=== PATIENT | female | born 1980 | race Caucasian/White ===

== ENCOUNTER 2019-08-24 11:00 | Emergency (ER) | payer OTHER, SELFPAY ==
--- NOTE | 2019-08-24 11:07 | ED.URI ---
HPI - URI/Sore Throat General Chief Complaint: Upper Respiratory Infection Stated Complaint: Sore throat Time Seen by Provider: 08/24/19 11:25 Source: patient and RN notes reviewed Mode of arrival: ambulatory Limitations: no limitations History of Present Illness HPI Narrative: 38-year-old female presents with concern for dry cough, nasal congestion, postnasal drainage, sore throat for 3 days. Denies taking any [id number] medications MD elicited complaint: sore throat Related Data Home Medications Medication Instructions Recorded Confirmed amlodipine 10 mg PO DAILY 08/24/19 08/24/19 bupropion HCl 75 mg PO BID 08/24/19 08/24/19 bupropion HCl [Wellbutrin XL] 150 mg PO QAM 08/24/19 08/24/19 fenofibrate 160 mg PO DAILY 08/24/19 08/24/19 lisinopril-hydrochlorothiazide 1 tablet PO DAILY 08/24/19 08/24/19 Allergies Allergy/AdvReac Type Severity Reaction Status Date / Time latex Allergy Rash Verified 08/24/19 11:26 Penicillins Allergy Hives Verified 08/24/19 11:23 Review of Systems Review of Systems: Narrative: CONSTITUTIONAL: Denies malaise, chills, sweats, or fever. EYES: Denies visual changes, redness, or discharge. ENT: Reports rhinorrhea, congestion, sinus pain, otalgia and sore throat. CARDIOVASCULAR: Denies chest pain, palpitations, or edema. RESPIRATORY: Reports cough. Denies dyspnea. GASTROINTESTINAL: Denies abdominal pain, nausea, vomiting, diarrhea SKIN: Denies rash or itching. MUSCULOSKELETAL: Denies myalgia. NEUROLOGIC: Denies headache. All systems reviewed & are unremarkable except as noted in HPI and below PMFSH Comments At time of signature, agree with nursing past medical, surgical, social and family history. There is no relevant family history pertinent to the presenting complaint Exam Narrative: Exam Narrative: GENERAL: Well-appearing, well-nourished, and in no acute distress. HEAD: Normocephalic, atraumatic. EYES: PERRLA, conjunctivae clear, and EOMI. ENT: Nares clear, turbinates edematous and erythematous, clear discharge. Mucous membranes moist. TM pearly connors with dull light reflex bilaterally; no tragal tenderness. Oropharynx erythematous without lesions. Tonsils not enlarged and without exudate, no drooling, no hoarseness, no trismus. NECK: Supple. No lymphadenopathy CHEST: Clear to auscultation, breath sounds equal. No wheezing, rhonchi, rales, or stridor. No respiratory distress, speaks in full sentences. HEART: Regular rate and rhythm. No murmur heard. Normal peripheral pulses. SKIN: Warm, dry, no rash. NEURO: Alert and oriented x3. PSYCH: Normal mood and affect Course Course Emergency Course: Patient is aware of diagnosis, understands and agrees to treatment plan. Anticipatory guidance given. Patient agrees to follow-up as directed and is aware of reasons to seek care at the emergency department. Portions of this record may have been created with voice recognition software Vital Signs Vital signs: Vital Signs Temperature 98.6 F 08/24/19 11:10 Pulse Rate 88 08/24/19 11:10 Respiratory Rate 18 08/24/19 11:10 Blood Pressure 131/81 08/24/19 11:10 Pulse Oximetry 100 08/24/19 11:10 Temperature 98.6 F 08/24/19 11:10 Pulse Rate 88 08/24/19 11:10 Respiratory Rate 18 08/24/19 11:10 Blood Pressure 131/81 08/24/19 11:10 Pulse Oximetry 100 08/24/19 11:10 Reviewed. Patient has current diagnosis of hypertension MDM - URI/Sore Throat MDM Narrative Medical decision making narrative: Differential diagnosis considered: Strep pharyngitis, allergic rhinitis, upper respiratory tract infection, sinusitis, rhinosinusitis, nasopharyngitis. viral pharyngitis, otitis media, otitis externa, pneumonia, bronchitis, viral cough syndrome, viral syndrome, and influenza. Exam findings show no acute concerns or changes; patient is non-toxic appearing and is in no distress. Patient is appropriate for outpatient treatment and follow-up. Lab Data Attestation: I reviewed the patient'
[2019-08-24 11:10] VITALS: BP 131/81; PULSE 88; RESP 18; TEMP 37; O2SAT 100
== END 2019-08-24 11:45 | disposition home or self-care (01) ==
PROVIDERS: Emergency Provider Nurse Practitioner; PCP Family Medicine
DX: J06.9 Acute upper respiratory infection, unspecified (principal); E78.00 Pure hypercholesterolemia, unspecified; I10 Essential (primary) hypertension; F32.9 Major depressive disorder, single episode, unspecified
CPT/HCPCS: 87081; 87880; 99203; G0463

== ENCOUNTER 2025-01-14 23:27 | Emergency (ER) | payer OTHER, SELFPAY ==
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
[2025-01-14 23:33] VITALS: BP 148/90; PULSE 103; RESP 17; TEMP 37.1; O2SAT 100
[2025-01-14 23:58] LABS: BEDSIDEPREGUCG Negative (Negative)
--- NOTE | 2025-01-15 00:04 | ECG_ITS ---
Test Date: 2025-01-15 00:04:47 Measurements Intervals [place] Rate: 82 P: 51 ID: [id number] QRS: 33 QRSD: 84 T: 48 QT: 353 QTc: 414 Interpretive Statements SINUS RHYTHM No previous ECG available for comparison Electronically Signed On 01-15-2025 12:50:25 CDT by Gabe Dougherty M.D.
[2025-01-15 00:09] LABS: Hematocrit 34.7 % (37.0-47.0); Hemoglobin 11.2 g/dL (12.0-15.0); Immature Granulocyte Percent A 0.3 % (0-0.5); Lymphocytes Absolute Auto 2.73 K/mm3 (0.9-3.2); Mean Corpuscular HGB Conc 32.3 g/dl (32-36); Mean Corpuscular Hemoglobin 30.2 pg (26-34); Mean Corpuscular Volume 93.5 fl (80-100); Nucleated Red Blood Cells Absolute Auto 0.000 K/mm3 (0.0-0.012); Nucleated Red Blood Cells Perc 0.0 % (0.0-0.2); Platelet Count Result 308 k/mm3 (150-375); Red Blood Count 3.71 M/mm3 (4.2-5.4); White Blood Count 6.8 K/mm3 (4.5-10.0)
--- OUTSIDE RECORDS SUMMARY | 2025-01-15 00:13 | XMS_ITS | Encounter Summary ---
Author Organization [facility] Address [address] [place] [address] Phone Care Team Providers Care Quantitative Strategy Analyst Name Role Phone Angela Dos Santos Primary Care Provider Alfie Cervantes MD Primary Care Provider [phone] Angela Dos Santos Unavailable [phone] Helen Calabrese CLINICAL NURSE OCCUPATIONAL MEDICINE Unavailable [phone] Encounter Details Date Type Department Care Team (Late st Contact Info) Description 04/25/2022 Orders Only [facility] Scanning, Provider Social History Tobacco Use Types Packs/Day Years Used Date Smoking Tobacco: Never Assessed Comments Unknown Sex and Gender Information Value Date Recorded Sex Assigned at Not on file Legal Sex Female 9:46 AM DATABASE MANAGER Gender Identity Female 08/08/2023 12:53 AM DATABASE MANAGER Sexual Orientation Straight 08/08/2023 12 :53 AM DATABASE MANAGER documented as of this encounter Plan of Treatment Not on file documented as of this encounter Procedures Procedure Name Priority Date/Time Associated Diagnosis Comments SCAN - RADIOLOGY/IMAGING 04/25/2022 documented in this encounter Results * SCAN - RADIOLOGY/IMAGING (04/25/2022) Anatomical Region Laterality Modality Other us Provider Scanning Edited Result - Final documented in this encounter Visit Diagnoses Not on filedocumented in this encounter Care Teams Quantitative Strategy Analyst Relationship Specialty Start Date End Date Angela Dos Santos PA [address] [place] [address] PCP - General Physician Jigger Operator 05/25/22 06/04/22 Alfie Cervantes MD [address] [address] PCP - General Gastroenterology 06/05/22 Angela Dos Santos PA [address] [place] [address] Physician Jigger Operator 06/05/22 Helen Calabrese, CLINICAL NURSE OCCUPATIONAL MEDICINE [facility] [place] [address] Nurse Practitioner Family Practice 10/09/23 documented as of this encounter
--- OUTSIDE RECORDS SUMMARY | 2025-01-15 00:13 | XMS_ITS | Encounter Summary ---
Author Organization [facility] Address [address] [place] [address] Phone Care Team Providers Care Geological Specialist Name Role Phone Angela Dos Santos Primary Care Provider [phone] Alfie Cervantes MD Primary Care Provider [phone] Angela Dos Santos Unavailable [phone] Helen Calabrese HEALTH INSURANCE ADJUSTER Unavailable [phone] Encounter Details Date Type Department Care Team (Late st Contact Info) Description 03/27/2022 Orders Only [facility] Scanning, Provider Social History Tobacco Use Types Packs/Day Years Used Date Smoking Tobacco: Never Assessed Comments Unknown Sex and Gender Information Value Date Recorded Sex Assigned at Not on file Legal Sex Female 9:46 AM SECRETARY Gender Identity Female 08/08/2023 12:53 AM SECRETARY Sexual Orientation Straight 08/08/2023 12 :53 AM SECRETARY documented as of this encounter Plan of Treatment Not on file documented as of this encounter Procedures Procedure Name Priority Date/Time Associated Diagnosis Comments SCAN - RADIOLOGY/IMAGING 03/27/2022 documented in this encounter Results * SCAN - RADIOLOGY/IMAGING (03/27/2022) Anatomical Region Laterality Modality Other us Provider Scanning Final Result documented in this encounter Visit Diagnoses Not on filedocumented in this encounter Care Teams Geological Specialist Relationship Specialty Start Date End Date Angela Dos Santos PA [address] [place] [address] PCP - General Physician Dual Rate Supervisor 05/25/22 06/04/22 Alfie Cervantes MD [address] [address] PCP - General Gastroenterology 06/05/22 Angela Dos Santos PA [address] [place] [address] Physician Dual Rate Supervisor 06/05/22 Helen Calabrese, HEALTH INSURANCE ADJUSTER [facility] [place] [address] Nurse Practitioner Family Practice 10/09/23 documented as of this encounter
--- OUTSIDE RECORDS SUMMARY | 2025-01-15 00:13 | XMS_ITS | Encounter Summary ---
Author Organization [facility] Address [facility] [place] [address] Care Team Providers Care Statistical Clerk Advertising Name Role Phone Kelsie Jeffries MD Primary Care Provider [phone] Angela Dos Santos PA-C Primary Care Provider [phone] Encounter Details Date Type Department Care Team (Late st Contact Info) Description 09/06/2021 Prep for Procedure [facility] [place] [address] Mara Borges MD [address] [place] [address] Social History Tobacco Use Types Packs/Day Years Used Date Smoking Tobacco: Former Cigarettes Q uit: 08/31/2005 Smokeless Tobacco: Never Alcohol Use Standard Drinks/Week Comments Yes 0 (1 standard drink = 0.6 oz pur e alcohol) 3x's/week -beer AUDIT-C Answer Date Recorded Q1: How often do you have a drink containing alc ohol? 2-4 times a month 07/14/2020 Q2: How many drinks containi ng alcohol do you have on a typical day when you are drinking? 1 or 2 07/14/2020 Frequency of Binge Drinking Not on file 06/16 Comments No Sex and Gender Information Value Date Recorded Sex Assigned at Not on file Legal Sex Female 6:36 PM CDT Gender Identity Not on file Sexual Orientation Not on file COVID-19 Exposure Response Date Recorded In the last 10 days, have yo u been in contact with someone who was confirmed or suspected to have Coronavirus/COVID-19? No / Unsure 09/06/2021 5:17 AM GROUP SALES COORDINATOR documented as of this encounter Functional Status * RETIRED Are you deaf or do you have serious difficulty hearing Answer Date of Assessment Author Status No 07/21/2021 5:40 PM GROUP SALES COORDINATOR Activ e * RETIRED Are you blind or do you have serious difficulty seeing, even when wearing glasses? Answer Date of Assessment Author Status No 07/21/2021 5:40 PM GROUP SALES COORDINATOR Activ e * Do you have serious difficulty walking or climbing stairs? Answer Date of Assessment Author Status No 07/21/2021 5:40 PM GROUP SALES COORDINATOR Chloe Guerra S, R N Active * Do you have difficulty dressing or bathing? Answer Date of Assessment Author Status No 07/21/2021 5:40 PM GROUP SALES COORDINATOR Chloe Guerra S, R N Active * Because of a physical, mental, or emotional condition, do you have difficulty doing errands alone such as visiting a doctor's office or shopping? Answer Date of Assessment Author Status No 07/21/2021 5:40 PM GROUP SALES COORDINATOR Chloe Guerra S, R N Active * Calculated C-SSRS Risk Score (Lifetime/Recent) Answer Date of Assessment Author Status No Risk Indicated 09/06/2021 6:00 AM GROUP SALES COORDINATOR Francesca Baumann RN Active * [place] Suicide Severity Rating Scale (Screener/Recent Self-Report) Question Answer Date of Assessment Author Status 1. Wish to be (Past 1 Month) No 09/06/2021 6:00 AM Francesca Adams RN Active 2. Non-Specific Active Suicidal Thoughts (Past 1 Month) No 09/06/2021 6:00 AM Francesca Adams RN Active 6. Suicidal Behavior (Lifetime) No 09/06/2021 6:00 AM Francesca Adams RN Active documented as of this encounter Mental Status * Because of a physical, mental, or emotional condition, do you have serious difficulty concentrating, remembering, or making decisions? Answer Entry Date Author Status No 07/21/2021 5:40 PM GROUP SALES COORDINATOR Chloe Guerra R N Active documented in this encounter Plan of Treatment Not on file documented as of this encounter Goals Goal Patient Goal Type Associated Problems Recent Progress Patient-Stated? Author Health - patient able to perform ADLs independently General No Evangelina Jenkins RN documented as of this encounter Results * (ABNORMAL) CBC W/DIFF AUTOMATED (09/04/2021 9:25 AM GROUP SALES COORDINATOR) [facility] WBC 9.2 4.5 - 11.0 x10'3/uL 09/04/2021 10:57 AM [facility] RBC 3.64(L) 4.20 - 5.40 x10'6/uL 09/04/2021 10:57 AM [facility] HGB 10.9(L) 12.0 - 16.0 G/DL 09/04/2021 10:57 AM [facility] HCT 34.1(L) 38.0 - 48.0 % 09/04/2021 10:57 AM [facility] MCV 93.7 81.0 - 99.0 FL 09/04/2021 10:57 AM [facility] MCH 29.9 27.0 - 31.0 PG 09/04/2021 10:57 AM [facility] MCHC 32.0 32.0 - 36.0 G/DL 09/04/2021 10:57 AM [facility] RDW 14.8(H) 11.5 - 14.5 % 09/04/2021 10:57 AM [facility] PLT 467(H) 130 - 400 x10'3/uL 09/04/2021 10:57 AM [facility] MPV 10.1 9.3 - 12.2 FL 09/04/2021 10:57 AM [facility] DIFFERENTIAL TYPE AUTOMATED DIFFERENTIAL 09/04/2021 10:57 AM GROUP SALES COORDINATOR [facility] NEUTROPHILS % 62.4 % 09/04/2021 10:57 AM [facility] LYMPHOCYTES % 27.9 % 09/04/2021 10:57 AM [facility] MONOCYTES % 7.8 % 09/04/2021 10:57 AM [facility] EOSINOPHILS 0.8 % 09/04/2021 10:57 AM [facility] BASOPHILS 0.8 % 09/04/2021 10:57 AM [facility] IMMATURE GRANS % 0.3 % 09/04/19 10:57 AM [facility] ABS. NEUTROPHILS TOTAL 5.72 1.80 - 7.70 x10'3/uL 09/04/2021 10:57 AM [facility] ABS. LYMPHOCYTES 2.56 1.00 - 4.80 x10'3/uL 09/04/2021 10:57 AM [facility] ABS. MONOCYTES 0.71 0.24 - 0.86 x10'3/uL 09/04/2021 10:57 AM [facility] ABS. EOSINOPHILS 0.07 0.04 - 0.36 x10'3/uL 09/04/2021 10:57 AM [facility] ABS. BASOPHILS 0.07 0.01 - 0.08 x10'3/uL 09/04/2021 10:57 AM [facility] ABS. IMMATURE GRANULOCYTES 0.03 0.00 - 0.49 x10'3/uL 09/04/2021 10:57 AM [facility] 09/04/2021 9:25 AM GROUP SALES COORDINATOR us Mara Borges MD LABORATORY Final Result [facility] [address] [place] [address], * TYPE & SCREEN (09/04/2021 9:25 AM GROUP SALES COORDINATOR) ABO/RH A POSITIVE 09/04/2021 11:01 AM GROUP SALES COORDINATOR [facility] ANTIBODY SCREEN NEGATIVE 09/04/2021 11:01 AM GROUP SALES COORDINATOR [facility] SAMPLE EXPIRATION 09/09/2021,2 359 09/06/2021 6:38 AM GROUP SALES COORDINATOR [facility] COMMENT NO HISTORY OF TRANSFUSIONS , OR ANTIBODIES, NEW SPECIMEN NOT NEEDED 09/06/2021 6:38 AM GROUP SALES COORDINATOR [facility] 09/04/2021 9:25 AM GROUP SALES COORDINATOR Result [facility] Mara Borges MD BLOOD BANK TEST ORDERABLES Final Result Performing Organization Address [facility] Co de Phone Number [facility] [address] [place] [address], * CORONAVIRUS (COVID-19) ANTIGEN (In-house Ivy) (09/04/2021 9:00 AM GROUP SALES COORDINATOR) Pathologist [facility] CORONAVIRUS ANTIGEN IA NEGATIVE NEGATIVE 09/04/2021 10:17 AM GROUP SALES COORDINATOR [facility] Comment: NEGATIVE RESULTS SHOULD BE TREATED PRESUMPTIVE AND CONFIRMED WITH A MOLECULAR ASSAY IF NECESSARY FOR PATIENT MANAGEMENT. NEGATIVE RESULTS DO NOT RULE OUT COVID 19 AND SHOULD NOT BE USED THE SOLE BASIS FOR TREATMENT OR PATIENT MANAGEMENT DECISIONS, INCLUDING INFECTION CONTROL DECISIONS. NEGATIVE RESULTS SHOULD BE CONSIDERED IN THE CONTEXT OF A PATIENT'S RECENT EXPOSURES, HISTORY AND THE PRESENCE OF CLINICAL SIGNS AND SYMPTOMS CONSISTENT WITH COVID 19. THIS TEST HAS BEEN AUTHORIZED BY THE FDA UNDER AN EMERGENCY USE AUTHORIZATION (EUA) FOR USE BY AUTHORIZED LABORATORIES. SPECIMEN TYPE NASAL 09/04/2021 9:49 AM GROUP SALES COORDINATOR [facility] FIRST TEST NO 09/04/2021 9:49 AM GROUP SALES COORDINATOR [facility] EMPLOYED IN HEALTHCARE NO 09/04/2021 9:49 AM GROUP SALES COORDINATOR [facility] SYMPTOMATIC DEFINED BY CDC NO 09/04/2021 9:49 AM GROUP SALES COORDINATOR [facility] HOSPITALIZATION STATUS NO 09/04/2021 9:49 AM GROUP SALES COORDINATOR [facility] PATIENT IN ICU NO 09/04/2021 9:49 AM GROUP SALES COORDINATOR [facility] RESIDENT OF [facility] NO 09/04/2021 9:49 AM GROUP SALES COORDINATOR [facility] NOT 09/04/2021 9:49 AM GROUP SALES COORDINATOR [facility] Specimen from nose (specimen) NASAL STRUCTURE / Unknown 09/04/2021 9:00 AM GROUP SALES COORDINATOR us Mara Borges MD MICROBIOLOGY - GENERAL ORDERABLE S Final Result [facility] [address] [place] [address], documented in this encounter Visit Diagnoses Diagnosis Preoperative testing- Primary Preoperative examination, unspecified documented in this encounter Additional Health Concerns Infection Onset Date Last Indicated Resolved Time COVID-19 Rule Out 11/10/2021 11/10/2021 11/10/2021 7:05 PM CDT MRSA Comment:02/20/22 nares (SB) 02/20/2022 02/20/2022 documented as of this encounter Care Teams Statistical Clerk Advertising Relationship Specialty Start Date End Date Kelsie Jeffries MD [facility] [place] [address] PCP - General FAMILY PRACTICE 07/14/20 02/06/22 Angela Dos Santos, PA-C . [facility] [address] [place] [id number] PCP - General PHYSICIAN CARBURIZER 02/07/22 documented as of this encounter
--- OUTSIDE RECORDS SUMMARY | 2025-01-15 00:13 | XMS_ITS | Encounter Summary ---
Author Organization [facility] Address [facility] [place] [address] Care Team Providers Care Barrel Racer Name Role Phone Kelsie Jeffries MD Primary Care Provider Angela Dos Santos PA-C Primary Care Provider [phone] Encounter Details Date Type Department Care Team (Late st Contact Info) Description 08/10/2021 Hospital Follow-up Call [facility] Med/Surg [address] [place] [address] Meghan Forte, RN Social History Tobacco Use Types Packs/Day Years Used Date Smoking Tobacco: Every Day Electronic Cigarettes Smokeless Tobacco: Never Comments:1 pack a week Alcohol Use Standard Drinks/Week Comments Yes 0 [...] Exposure Response Date Recorded In the last month, have you been in contact with someone who was confirmed or suspected to have Coronavirus / COVID-19? Yes 07/20/2021 10:28 AM LONG FILLER CIGAR ROLLER MACHINE documented as of this encounter Functional Status * RETIRED Are you deaf or do you have serious difficulty hearing Answer Date of Assessment Author Status No 07/21/2021 5:40 PM LONG FILLER CIGAR ROLLER MACHINE Activ e * RETIRED Are you blind or do you have serious difficulty seeing, even when wearing glasses? Answer Date of Assessment Author Status No 07/21/2021 5:40 PM LONG FILLER CIGAR ROLLER MACHINE Activ e * Do you have serious difficulty walking or climbing stairs? Answer Date of Assessment Author Status No 07/21/2021 5:40 PM LONG FILLER CIGAR ROLLER MACHINE Rakers Chloe S, R N Active * Do you have difficulty dressing or bathing? Answer Date of Assessment Author Status No 07/21/2021 5:40 PM LONG FILLER CIGAR ROLLER MACHINE Rakers, Chloe S, R N Active * Because of a physical, mental, or emotional condition, do you have difficulty doing errands alone such as visiting a doctor's office or shopping? Answer Date of Assessment Author Status No 07/21/2021 5:40 PM LONG FILLER CIGAR ROLLER MACHINE Rakers, Chloe S, R N Active documented as of this encounter Mental Status * Because of a physical, mental, or emotional condition, do you have serious difficulty concentrating, remembering, or making decisions? Answer Entry Date Author Status No 07/21/2021 5:40 PM LONG FILLER CIGAR ROLLER MACHINE Rafanys Chloe S, R N Active documented in this encounter Progress Notes * Meghan Forte RN - 08/10/2021 5:14 PM CST Had no c/o any and states she would absolutely recommend the hospital. FILLER CIGAR ROLLER MACHINE documented in this encounter Plan of Treatment Not on file documented as of this encounter Goals Goal Patient Goal Type Associated Problems Recent Progress Patient-Stated? Author Health - patient able to perform ADLs independently General No Evangelina Jenkins RN documented as of this encounter Visit Diagnoses Not on filedocumented in this encounter Additional Health Concerns Infection Onset Date Last Indicated Resolved Time COVID-19 Rule Out 09/04/2021 09/04/2021 09/04/2021 10:17 AM LONG FILLER CIGAR ROLLER MACHINE COVID-19 Rule Out 11/10/2021 11/10/2021 11/10/2021 7:05 PM CDT MRSA Comment:02/20/22 citlaly (SB) 02/20/2022 02/20/2022 documented as of this encounter Care Teams Barrel Racer Relationship Specialty Start Date End Date Kelsie Jeffries MD [facility] [address] [place] [address] PCP - General FAMILY PRACTICE 07/14/20 02/06/22 Angela Dos Santos PA-C . [facility] [address] [place] [address] PCP - General PHYSICIAN CORN CROP SUPERVISOR 02/07/22 documented as of this encounter
--- OUTSIDE RECORDS SUMMARY | 2025-01-15 00:13 | XMS_ITS | Encounter Summary ---
Author Organization [facility] Address [facility] [place] [address] Care Team Providers Care Check Writer Salesperson Name Role Phone Kelsie Jeffries MD Primary Care Provider [phone] Angela Dos Santos PA-C Primary Care Provider [phone] Encounter Details Date Type Department Care Team (Late st Contact Info) Description 11/10/2021 Prep for Procedure [facility] [place], [place] [id number] Alfie Cervantes MD [address] [address] Social History Tobacco Use Types Packs/Day Years Used Date Smoking Tobacco: Former Cigarettes Q uit: 08/31/2005 Smokeless Tobacco: Never Alcohol Use Standard Drinks/Week Comments Yes 10 (1 standard drink = 0.6 oz pu re alcohol) 3x's/week -beer AUDIT-C Answer Date Recorded [...] suspected to have Coronavirus/COVID-19? No / Unsure 11/13/2021 9:38 AM CDT documented as of this encounter Functional Status * RETIRED Are you deaf or do you have serious difficulty hearing Answer Date of Assessment Author Status No 07/21/2021 5:40 PM FIELD LABORATORY OPERATOR Activ e * RETIRED Are you blind or do you have serious difficulty seeing, even when wearing glasses? Answer Date of Assessment Author Status No 07/21/2021 5:40 PM FIELD LABORATORY OPERATOR Activ e * Do you have serious difficulty walking or climbing stairs? Answer Date of Assessment Author Status No 07/21/2021 5:40 PM FIELD LABORATORY OPERATOR Chloe Guerra S, R N Active * Do you have difficulty dressing or bathing? Answer Date of Assessment Author Status No 07/21/2021 5:40 PM FIELD LABORATORY OPERATOR Chloe Guerra S, R N Active * Because of a physical, mental, or emotional condition, do you have difficulty doing errands alone such as visiting a doctor's office or shopping? Answer Date of Assessment Author Status No 07/21/2021 5:40 PM FIELD LABORATORY OPERATOR Chloe Guerra S, R N Active * Calculated C-SSRS Risk Score (Lifetime/Recent) Answer Date of Assessment Author Status No Risk Indicated 11/13/2021 12:21 PM CDT Anna Juarez RN Active * [place] Suicide Severity Rating Scale (Screener/Recent Self-Report) Question Answer Date of Assessment Author Status 1. Wish to be (Past 1 Month) No 11/13/2021 12:21 PM CDT Anna Juarez RN Active 2. Non-Specific Active Suicidal Thoughts (Past 1 Month) No 11/13/2021 12:21 PM CDT Anna Juarez RN Active 6. Suicidal Behavior (Lifetime) No 11/13/2021 12:21 PM SHIRAT Anna Juarez RN Active documented as of this encounter Mental Status * Because of a physical, mental, or emotional condition, do you have serious difficulty concentrating, remembering, or making decisions? Answer Entry Date Author Status No 07/21/2021 5:40 PM FIELD LABORATORY OPERATOR Chloe Guerra R N Active documented in this encounter Plan of Treatment Not on file documented as of this encounter Goals Goal Patient Goal Type Associated Problems Recent Progress Patient-Stated? Author Health - patient able to perform ADLs independently General No Evangelina Jenkins RN documented as of this encounter Results * CORONAVIRUS (COVID 19) (11/10/2021 9:15 AM CDT) SPEC DESCRIPTION NASAL 11/11/19 10:13 AM CDT [facility] CORONAVIRUS SARS COV 2 PCR (RESP) NEGATIVE NEGATIVE 11/10/2021 7:05 PM CDT [facility] Comment: THE SARS-CoV-2 TEST HAS BEEN AUTHORIZED BY THE FDA UNDER AN EUA FOR USE BY AUTHORIZED LABORATORIES. PERFORMED BY NUCLEIC ACID AMPLIFICATION PCR FIRST TEST NO 11/10/2021 10:13 AM CDT [facility] EMPLOYED IN HEALTHCARE NO 11/10/2021 10:13 AM CDT [facility] SYMPTOMATIC DEFINED BY CDC UNKNOWN 11/10/2021 10:13 AM CDT [facility] HOSPITALIZATION STATUS NO 11/10/2021 10:13 AM CDT [facility] PATIENT IN ICU NO 11/10/2021 10:13 AM CDT [facility] RESIDENT OF [facility] CARE NO 11/10/2021 10:13 AM CDT [facility] NOT 11/10/2021 10:13 AM CDT [facility] NASAL STRUCTURE / Unknown 11/10/2021 9:15 AM CDT us Alfie Cervantes MD MICROBIOLOGY - GENERAL ORDERABLE S Final Result [facility] [address] [facility] [place] [address], [place] [phone] [facility] [address] [place] [address], [place] [phone] documented in this encounter Visit Diagnoses Diagnosis Abdominal pain- Primary Abdominal pain, unspecified site documented in this encounter Additional Health Concerns Infection Onset Date Last Indicated Resolved Time COVID-19 Rule Out 11/10/2021 11/10/2021 11/10/2021 7:05 PM CDT MRSA Comment:02/20/22 citlaly (SB) 02/20/2022 02/20/2022 documented as of this encounter Care Teams Check Writer Salesperson Relationship Specialty Start Date End Date Kelsie Jeffries MD . [facility] [address] [place] [id number] PCP - General FAMILY PRACTICE 07/14/20 02/06/22 Angela Dos Santos, PASarahC . [facility] [address] [place] [address] PCP - General PHYSICIAN MIXING TUMBLER OPERATOR 02/07/22 documented as of this encounter
--- OUTSIDE RECORDS SUMMARY | 2025-01-15 00:13 | XMS_ITS | Encounter Summary ---
Author Organization [facility] Address [address] [place] [address] Phone Care Team Providers Care Tank Worker Name Role Phone Alfie Cervantes MD Primary Care Provider [phone] Angela Dos Santos PA Unavailable [phone] Helen Calabrese BREASTER Unavailable [phone] Encounter Details Date Type Department Care Team (Late st Contact Info) Description 08/29/2022 Orders Only [facility] Scanning, Provider Social History Tobacco Use Types Packs/Day Years Used Date Smoking Tobacco: Never Assessed Comments Unknown Sex and Gender Information Value Date Recorded Sex Assigned at Not on file Legal Sex Female 9:46 AM RADIAL DRILL OPERATOR Gender Identity Female 08/08/2023 12:53 AM RADIAL DRILL OPERATOR Sexual Orientation Straight 08/08/2023 12 :53 AM RADIAL DRILL OPERATOR documented as of this encounter Plan of Treatment Not on file documented as of this encounter Procedures Procedure Name Priority Date/Time Associated Diagnosis Comments SCAN - RADIOLOGY/IMAGING 08/29/2022 documented in this encounter Results * SCAN - RADIOLOGY/IMAGING (08/29/2022) Anatomical Region Laterality Modality Other us Provider Scanning Final Result documented in this encounter Visit Diagnoses Not on filedocumented in this encounter Care Teams Tank Worker Relationship Specialty Start Date End Date Alfie Cervantes MD [address] [address] PCP - General Gastroenterology 06/05/22 Angela Dos Santos PA [address] [place] [address] Physician Chief School Finance Officer 06/05/22 Helen Calabrese NP [address] [facility] [id number] Nurse Practitioner Family Practice 10/09/23 documented as of this encounter
--- OUTSIDE RECORDS SUMMARY | 2025-01-15 00:13 | XMS_ITS | Clinical Summary ---
Author Organization [facility] Address [facility] [place] [address] Care Team Providers Care Picker Name Role Phone Angela Dos Santos PA-C Primary Care Provider [phone] Allergies Active Allergy Reactions Criticality Noted Date Comments Gadolinium Derivatives Throat swelling 04/11/20 22 Throat started swelling during MRI Latex Hives 07/14/2020 Penicillin V Hives 07/14/2020 Tolerates carbapenems 02/2022 Sertraline Seizure 08/31/2021 Was taking 48 hrs, had uncontrollable seizures Medications hydrOXYzine 50 MG capsule Take 1 capsule (50 mg total) by mouth every 4 (four) hours as needed (ptsd). Active fenofibrate 160 MG tablet Take 1 tablet (160 mg total) by mouth 2 (two) times a day. Active vitamin D2, ergocalciferol, (DRISDOL) 23992 UNITS capsule Take 1 capsule (50,000 Units total) by mouth every 7 days. Fridays Active CREON 03111-25118 units capsuleIndications :Chronic pancreatitis, unspecified pancreatitis type (CMS/HCC HHS/HCC) TAKE 1 CAPSULE BY MOUTH 3 TIMES DAILY WITH MEALS 500 capsule 3 10/25/19 23 Active Additional Information Patient taking differently: 1 capsule Oral 3 times daily before meals, Reported on 07/23/2023 albuterol sulfate HFA 108 (90 Base) MCG/ACT inhaler Inhale 2 puffs into the lungs every 6 (six) hours as needed for Wheezing or Shortness of breath. Active celecoxib (CELEBREX) 100 MG capsule Take 1 capsule (100 mg total) by mouth 2 (two) times daily. Active pantoprazole EC (PROTONIX) 40 MG tablet Take 1 tablet (40 mg total) by mouth daily. Active rivaroxaban (XARELTO) 20 MG Tab tablet Take 1 tablet (20 mg total) by mouth daily. Take with food Active Senna (SENOKOT) 8.6 MG tablet Take 4 tablets (34.4 mg total) by mouth 2 (two) times daily as needed for Constipation. Active dicyclomine (BENTYL) 20 MG tablet Take 1 tablet (20 mg total) by mouth every 6 (six) hours. 120 tablet 07/22/19 24 Active ondansetron (ZOFRAN-ODT) 4 MG disintegrating tablet Take 1 tablet (4 mg total) by mouth every 8 (eight) hours as needed for Nausea. 20 tablet 07/22/19 24 Active buPROPion XL (WELLBUTRIN XL) 300 MG 24 hr tablet Take 1 tablet (300 mg total) by mouth daily. 06/19/20 23 Active fluticasone propionate (FLONASE) 50 MCG/ACT nasal spray 2 sprays by Nasal route 2 (two) times daily. Active polyethylene glycol (GLYCOLAX) packet Take 240 mLs (17 g total) by mouth daily as needed for Constipation. Dissolve powder in 240 mL water Active oxyCODONE-acetamin ophen (PERCOCET) 5-325 MG tabletIndications: Acute Pain < 3 Day Supply Take 1 tablet by mouth every 8 (eight) hours as needed for Pain. Indications: Acute Pain < 3 Day Supply 5 tablet 07/27/19 24 Active Active Problems Problem Noted Date Diagnosed Date Acute on chronic pancreatitis ([facility]/HCC HHS/HCC) 07/23/2023 Pancreatitis, necrotizing ([facility]) 02/11/2022 Acute pancreatitis ([facility]) 02/10/2022 Diarrhea, unspecified type 10/23/2021 Overview (10/23/2021): Added automatically from request for surgery [id number] Family history of pancreatitis 10/23/2021 Overview (10/23/2021): Added automatically from request for surgery [id number] Menometrorrhagia 09/06/2021 S/P hysterectomy 09/06/2021 Hypertriglyceridemia 07/20/2021 Pancreatitis ([facility]) 07/14/2020 PTSD (post-traumatic stress disorder) 09/12/2009 PMDD (premenstrual dysphoric disorder) 4 Immunizations Immunization Administration Dates Next Due Fluzone 6 Months+ Quad (0.5 mL Prefilled Syringe ) 09/07/2022,07/21/2021 Family History * Patient is adopted Medical History Relation Comments pancreatitis Brother mitral valve prolapse Maternal Aunt pancreatitis Maternal Grandmother Diabetes Mother mitral valve prolapse Mother pancreatitis Sister Relation Status Comments Brother Alive Maternal Aunt Maternal Grandmother Mother Alive Sister Alive Social History Tobacco Use Types Packs/Day Years Used Date Smoking Tobacco: Former Cigarettes Q uit: 08/31/2005 Smokeless Tobacco: Never Tobacco Cessation:Counseling Given: No Alcohol Use Standard Drinks/Week Comments Never 10 (1 standard drink = 0.6 oz pu re alcohol) 3x's/week -beer [employer] Answer Date Recorded In the past 12 months has [employer], gas, oil, or water [employer] threatened to shut off services in your home? No 07/23/2023 Humiliation, Afraid, Rape, and Kick questionnair e Answer Date Recorded Within the last year, have y ou been afraid of your partner or ex-partner? No 07/23/2023 Within the last year, have y ou been humiliated or emotionally abused in other ways by your partner or ex-partner? No Within the last year, have y ou been kicked, hit, slapped, or otherwise physically hurt by your partner or ex-partner? No 07/23/2023 Within the last year, have y ou been raped or forced to have any kind of sexual activity by your partner or ex-partner? No 07/23/2023 AUDIT-C Answer Date Recorded Q1: How often do you have a drink containing alc ohol? 2-4 times a month 07/14/2020 Q2: How many drinks containi ng alcohol do you have on a typical day when you are drinking? 1 or 2 07/14/2020 Frequency of Binge Drinking Not on file 06/16 Overall Financial Resource Strain (CARDIA) Answe r Date Recorded How hard is it for you to pa y for the very basics like food, housing, medical care, and heating? Somewhat hard 07/23/2023 PHQ-2 Answer Date Recorded PHQ-2 Score - If the patient scores above 3, please move on to questions 3-9 6 11/27/2021 Hunger Vital Sign Answer Date Recorded Within the past 12 months, y ou worried that your food would run out before you got the money to buy more. Sometimes true Within the past 12 months, t he food you bought just didn't last and you didn't have money to get more. Sometimes true 03/2024 PRAPARE - Transportation Answer Date Re corded In the past 12 months, has l ack of transportation kept you from medical appointments or from getting medications? Yes 03/2024 In the past 12 months, has l ack of transportation kept you from meetings, work, or from getting things needed for daily living? Yes 07/23/2023 Housing Stability Vital Sign Answer German e Recorded In the last 12 months, was t here a time when you were not able to pay the mortgage or rent on time? Yes 07/23/2023 In the last 12 months, how many places have you lived? 1 07/23/2023 In the last 12 months, was t here a time when you did not have a steady place to sleep or slept in a skilled nursing (including now)? No 07/23/2023 Housing Stability Vital Sign Answer German e Recorded In the last 12 months, was t here a time when you were not able to pay the mortgage or rent on time? Yes 07/23/2023 Number of Times Moved in the Last Year Not on fi le 07/23/2023 Homeless in the Last Year Not on file 2023 Comments No Sex and Gender Information Value Date Recorded Sex Assigned at Not on file Legal Sex Female 6:36 PM CDT Gender Identity Not on file Sexual Orientation Not on file Last Filed Vital Signs Vital Sign Reading Time Taken Comments Blood Pressure 118/81 07/27/2023 12:12 PM DIAGNOSTIC ASSISTANT Pulse 70 07/27/2023 12:12 PM DIAGNOSTIC ASSISTANT Temperature 36.1 C (97 F) 07/27/2023 12:12 PM DIAGNOSTIC ASSISTANT Respiratory Rate 16 07/27/2023 12:12 PM DIAGNOSTIC ASSISTANT Oxygen Saturation 100% 07/27/2023 12:12 PM DIAGNOSTIC ASSISTANT Inhaled Oxygen Concentration - - Weight 66 kg (145 lb 8.1 oz) 07/27/2023 3:30 AM DIAGNOSTIC ASSISTANT Height 167.6 cm (5' 5.98) 07/23/2023 6:44 PM CS T Body Mass Index 23.5 07/23/2023 6:44 PM DIAGNOSTIC ASSISTANT Plan of Treatment Health Maintenance Due Date Last Done Comments Annual Physical 11/18/1982 Hepatitis C 11/18/1997 DTaP, Tdap and Td Vaccines ( 1 - Tdap) 11/18/1998 Hepatitis B Vaccines (1 of 3 - 19+ 3-dose series) 11/18/1998 Mammogram Screening 2019 COVID-19 Vaccine ( - 2023-2 5 season) 2024 PHQ-2 (Physician [place]) 07/15/2024 Colorectal Cancer Screening Colonoscopy (10 Years) 11/14/2031 11/13/2021 HPV Vaccines Aged Out No longer eligi ble based on patient's age to complete this topic Meningococcal B Vaccine Aged Out No l onger eligible based on patient's age to complete this topic Meningococcal Vaccine Aged Out No dayami celina eligible based on patient's age to complete this topic Pneumococcal Vaccine: Pediat rics (0 to 5 Years) and At-Risk Patients (6 to 49 Years) Aged Out No longer eligi ble based on patient's age to complete this topic RSV Immunizations Under 20 Months Aged Out No longer eligible based on patient's age to complete this topic Goals Goal Patient Goal Type Associated Problems Recent Progress Patient-Stated? Author Health - patient able to perform ADLs independently General No Evangelina Jenkins, RN Patient will return to prior living situation and remain independent in ADLs upon discharge from hospital General No Shonna Bauer, RN Note: Is going home after d/c and Mother or fiance will help if needed. Safety Patient/family will have appropriate support at home upon discharge Lifestyle No Meeta Pickens, senior education specialist - family caregiver with be involved in care transitions and discharge planning Lifestyle No Karma García, SIDE STITCHING MACHINE OPERATOR Additional Health Concerns Infection Onset Date Last Indicated MRSA Comment:02/20/22 citlaly (SB) 02/20/2022 02/20/2022 Insurance [facility] Advance Directives Documents on File Type Date Recorded Patient Industrial Waste Treatment Technician Expl anation Advance Directives and Livin g Will 02/12/2022 1:12 PM [facility] * Full Code (Latest Code Status on File) Date Activated Date Inactivated Comments 07/23/2023 3:23 PM 07/27/2023 6:29 PM * Full Code Date Activated Date Inactivated Comments 07/22/2023 10:39 PM 07/23/2023 3:21 PM * Full Code Date Activated Date Inactivated Comments 05/14/2023 3:55 PM 05/22/2023 1:22 PM * Full Code Date Activated Date Inactivated Comments 08/30/2022 2:06 AM 09/07/2022 4:18 PM * Full Code Date Activated Date Inactivated Comments 04/25/2022 9:21 PM 05/09/2022 2:58 PM Care Teams Picker Relationship Specialty Start Date End Date Angela Dos Santos PA-C PCP - General PHYSICIAN DOCUMENT REVIEWER 02/07/22
--- OUTSIDE RECORDS SUMMARY | 2025-01-15 00:13 | XMS_ITS | Data Portability ---
Author Organization [employer] , [facility] Address [address] [place] [address] Assessment No assessment recorded. Plan of Treatment Reminders Order Date Submit Date Provider Last Modified By Organization Details Last Modified Time Details Appointments None recorded. Lab CBC w/ auto diff 2021 JOSE [facility], [address] [place], [address], 05:51:37 Referral physical therapist referral - Right sided c/s scar pain (from 2006) 2021 [facility] - [place], [facility] [address] [facility], [place], [address], 13:34:54 Procedures None recorded. Surgeries None recorded. Imaging None recorded. Medication Orders clotrimazo le 1 % topical cream 2021 JOSE Not available 14:26:14 bupropion HCl 100 mg tablet 2021 JOSE Not available 14:26:16 Patient TargetsNo targets recorded. Patient InstructionsNo instructions recorded. Reason for Referral Physical Therapist Referral for Pain of scar Right sided c/s scar pain (from 2006) Referring Physician: Mara Borges, [employer], Encounter Date: 10/17/2021 Results Created Date Observation Date Name Description Value Unit Range Abnormal Flag Note LastModifiedBy Organization Detail LastModifiedTime 08/22/19 22 08/23/2021 CBC (INCL UDES DIFF/ PLT) white blood cell count 11.9 thous and/u L 3.8-10 .8 high Not Available [address], [address], 08/23/2021 05:51:37 08/22/19 22 08/23/2021 CBC (INCL UDES DIFF/ PLT) red blood cell count 3.81 evelin on/uL 3.80-5 .10 normal Not Available [address], [address], 08/23/2021 05:51:37 08/22/19 22 08/23/2021 CBC (INCL UDES DIFF/ PLT) hemoglobin 11.2 g/dL 11.7-1 5.5 low Not Available [facility] [address], [address], 08/23/2021 05:51:37 08/22/19 22 08/23/2021 CBC (INCL UDES DIFF/ PLT) hematocrit 34.4 % 35.0-4 5.0 low Not Available [facility] [address], [address], 08/23/2021 05:51:37 08/22/19 22 08/23/2021 CBC (INCL UDES DIFF/ PLT) MCV 90.3 fL 80.0-1 00.0 normal Not Available [facility] [address], [address], 08/23/2021 05:51:37 08/22/19 22 08/23/2021 CBC (INCL UDES DIFF/ PLT) MCH 29.4 pg 27.0-3 3.0 normal Not Available [facility] [address], [address], 08/23/2021 05:51:37 08/22/19 22 08/23/2021 CBC (INCL UDES DIFF/ PLT) MCHC 32.6 g/dL 32.0-3 6.0 normal Not Available [address], [address], 08/23/2021 05:51:37 08/22/19 22 08/23/2021 CBC (INCL UDES DIFF/ PLT) RDW 12.6 % 11.0-1 5.0 normal Not Available [address], [address], 08/23/2021 05:51:37 08/22/19 22 08/23/2021 CBC (INCL UDES DIFF/ PLT) platelet count 605 thous and/u L 140-40 0 high Not Available [address], [address], 08/23/2021 05:51:37 08/22/19 22 08/23/2021 CBC (INCL UDES DIFF/ PLT) MPV 11.1 fL 7.5-12 .5 normal Not Available [address], [address], 08/23/2021 05:51:37 08/22/19 22 08/23/2021 CBC (INCL UDES DIFF/ PLT) absolute neutrophils 7188 cells /uL 1500-7 800 normal Not Available [address], [address], 08/23/2021 05:51:37 08/22/19 22 08/23/2021 CBC (INCL UDES DIFF/ PLT) absolute lymphocytes 3618 cells /uL 850-39 00 normal Not Available [address], [address], 08/23/2021 05:51:37 08/22/19 22 08/23/2021 CBC (INCL UDES DIFF/ PLT) absolute monocytes 785 cells /uL 200-95 0 normal Not Available [address], [address], 08/23/2021 05:51:37 08/22/19 22 08/23/2021 CBC (INCL UDES DIFF/ PLT) absolute eosinophils 214 cells /uL 15-500 normal Not Available [address], [address], 08/23/2021 05:51:37 08/22/19 22 08/23/2021 CBC (INCL UDES DIFF/ PLT) absolute basophils 95 cells /uL 0-200 normal Not Available [facility] [address], [address], 08/23/2021 05:51:37 08/22/19 22 08/23/2021 CBC (INCL UDES DIFF/ PLT) neutrophils 60.4 % normal Not Available [facility] [address], [address], 08/23/2021 05:51:37 08/22/19 22 08/23/2021 CBC (INCL UDES DIFF/ PLT) lymphocytes 30.4 % normal Not Available [facility] [address], [address], 08/23/2021 05:51:37 08/22/19 22 08/23/2021 CBC (INCL UDES DIFF/ PLT) monocytes 6.6 % normal Not Available [facility] [address], [address], 08/23/2021 05:51:37 08/22/19 22 08/23/2021 CBC (INCL UDES DIFF/ PLT) eosinophils 1.8 % normal Not Available [facility] [address], [address], 08/23/2021 05:51:37 08/22/19 22 08/23/2021 CBC (INCL UDES DIFF/ PLT) basophils 0.8 % normal Not Available [facility] [address], [address], 08/23/2021 05:51:37 09/04/19 22 09/04/2021 CORON AVIRU S (COVI D 19) ANTIG EN coronavirus antigen ia NEGATI VE neg normal NEGAT MOOKIE RESUL TS SHOUL D BE TREAT ED PRESU MPTIV E AND CONFI RMED WITH A MOLEC ULAR ASSAY IF NECES GONZÁLEZ FOR PATIE NT MANAG EMENT . NEGAT MOOKIE RESUL TS DO NOT RULE OUT COVID 19 AND SHOUL D NOT BE USED THE SOLE BASIS FOR TREAT MENT OR PATIE NT MANAG EMENT DECIS IONS, INCLU DING INFEC TION CONTR OL DECIS IONS. NEGAT MOOKIE RESUL TS SHOUL D BE CONSI DERED IN THE REYNALDO XT OF A PATIE NT'S RECEN T EXPOS URES, HISTO RY AND THE PRESE NCE OF CLINI CAMELIA SIGNS AND SYMPT OMS CONSI STENT WITH COVID 19. THIS TEST HAS BEEN AUTHO RIZED BY THE FDA UNDER AN EMERG ENCY USE AUTHO RIZAT ION (EUA) FOR USE BY AUTHO RIZED LABOR ATORI ES. Not Available [facility] (Lab) [place], [address], 09/04/2021 11:17:22 09/04/19 22 09/04/2021 CORON AVIRU S (COVI D 19) ANTIG EN specimen type NASAL Not Available [facility] (Lab) [place], [address], 09/04/2021 11:17:22 09/04/19 22 09/04/2021 CORON AVIRU S (COVI D 19) ANTIG EN first test? NO Not Available [facility] (Lab) [place], [address], 09/04/2021 11:17:22 09/04/19 22 09/04/2021 CORON AVIRU S (COVI D 19) ANTIG EN employed in healthcare? NO Not Available [facility] (Lab) [place], [address], 09/04/2021 11:17:22 09/04/19 22 09/04/2021 CORON AVIRU S (COVI D 19) ANTIG EN symp defined by cdc? NO Not Available [facility] (Lab) [address] [facility], [place], [address], 09/04/2021 11:17:22 09/04/19 22 09/04/2021 CORON AVIRU S (COVI D 19) ANTIG EN hospitalized ? NO Not Available [facility] (Lab) [address] [place], [address], 09/04/2021 11:17:22 09/04/19 22 09/04/2021 CORON AVIRU S (COVI D 19) ANTIG EN ICU? NO Not Available [facility] (Lab) [address] [facility], [place], [address], 09/04/2021 11:17:22 09/04/19 22 09/04/2021 CORON AVIRU S (COVI D 19) ANTIG EN res congregate care? NO Not Available [facility] (Lab) [address] [facility], [place], [address], 09/04/2021 11:17:22 09/04/19 22 09/04/2021 CORON AVIRU S (COVI D 19) ANTIG EN ? NOT PREGNA NT Not Available [facility] (Lab) [address] [facility], [place], [address], 09/04/2021 11:17:22 09/04/19 22 09/04/2021 CBC WITH DIFF WBC 9.2 x10'3 /uL 4.5-11 .0 Not Available [facility] (Lab) [place], [address], 09/04/2021 11:57:22 09/04/19 22 09/04/2021 CBC WITH DIFF RBC 3.64 x10'6 /uL 4.20-5 .40 low Not Available [facility] (Lab) [address], [place], [address], 09/04/2021 11:57:22 09/04/19 22 09/04/2021 CBC WITH DIFF hemoglobin 10.9 g/dL 12.0-1 6.0 low Not Available [facility] (Lab) [address], [place], [address], 09/04/2021 11:57:22 09/04/19 22 09/04/2021 CBC WITH DIFF hematocrit 34.1 % 38.0-4 8.0 low Not Available [facility] (Lab) [address], [place], [address], 09/04/2021 11:57:22 09/04/19 22 09/04/2021 CBC WITH DIFF MCV 93.7 fL 81.0-9 9.0 Not Available [facility] (Lab) [address], [place], [address], 09/04/2021 11:57:22 09/04/19 22 09/04/2021 CBC WITH DIFF MCH 29.9 pg 27.0-3 1.0 Not Available [facility] (Lab) [address], [place], [address], 09/04/2021 11:57:22 09/04/19 22 09/04/2021 CBC WITH DIFF MCHC 32.0 g/dL 32.0-3 6.0 Not Available [facility] (Lab) [address], [place], [address], 09/04/2021 11:57:22 09/04/19 22 09/04/2021 CBC WITH DIFF RDW 14.8 % 11.5-1 4.5 high Not Available [facility] (Lab) [address], [place], [address], 09/04/2021 11:57:22 09/04/19 22 09/04/2021 CBC WITH DIFF platelet count 467 x10'3 /uL 130-40 0 high Not Available [facility] (Lab) [address], [place], [address], 09/04/2021 11:57:22 09/04/19 22 09/04/2021 CBC WITH DIFF MPV 10.1 fL 9.3-12 .2 Not Available [facility] (Lab) [address], [place], [address], 09/04/2021 11:57:22 09/04/19 22 09/04/2021 CBC WITH DIFF diff type AUTOMA AIDA DIFFER ENTIAL Not Available [facility] (Lab) [address], [place], [address], 09/04/2021 11:57:22 09/04/19 22 09/04/2021 CBC WITH DIFF neutrophils 62.4 % Not Available [facility] (Lab) [address], [place], [address], 09/04/2021 11:57:22 09/04/19 22 09/04/2021 CBC WITH DIFF lymphocytes 27.9 % Not Available [facility] (Lab) [address], [place], [address], 09/04/2021 11:57:22 09/04/19 22 09/04/2021 CBC WITH DIFF monocytes 7.8 % Not Available [facility] (Lab) [address] [facility], [place], [address], 09/04/2021 11:57:22 09/04/19 22 09/04/2021 CBC WITH DIFF eosinophils 0.8 % Not Available [facility] (Lab) [address] [facility], [place], [address], 09/04/2021 11:57:22 09/04/19 22 09/04/2021 CBC WITH DIFF basophils 0.8 % Not Available [facility] (Lab) [address] [facility], [place], [address], 09/04/2021 11:57:22 09/04/19 22 09/04/2021 CBC WITH DIFF immature granulocytes 0.3 % Not Available [facility] (Lab) [address] [facility], [place], [address], 09/04/2021 11:57:22 09/04/19 22 09/04/2021 CBC WITH DIFF abs. neutrophils 5.72 x10'3 /uL 1.80-7 .70 Not Available [facility] (Lab) [address] [facility], [place], [address], 09/04/2021 11:57:22 09/04/19 22 09/04/2021 CBC WITH DIFF abs. lymphocytes 2.56 x10'3 /uL 1.00-4 .80 Not Available [facility] (Lab) [address] [facility], [place], [address], 09/04/2021 11:57:22 09/04/19 22 09/04/2021 CBC WITH DIFF abs. monocytes 0.71 x10'3 /uL 0.24-0 .86 Not Available [facility] (Lab) [address] [facility], [place], [address], 09/04/2021 11:57:22 09/04/19 22 09/04/2021 CBC WITH DIFF abs. eosinophils 0.07 x10'3 /uL 0.04-0 .36 Not Available [facility] (Lab) [address], [place], [address], 09/04/2021 11:57:22 09/04/19 22 09/04/2021 CBC WITH DIFF abs. basophils 0.07 x10'3 /uL 0.01-0 .08 Not Available [facility] (Lab) [address], [place], [address], 09/04/2021 11:57:22 09/04/19 22 09/04/2021 CBC WITH DIFF abs. immature grans 0.03 x10'3 /uL 0.00-0 .49 Not Available [facility] (Lab) [address], [place], [address], 09/04/2021 11:57:22 09/04/19 22 09/04/2021 TYPE AND SCREE N ABO/Rh(D) A POSITI VE Not Available [facility] (Lab) [address], [place], [address], 09/06/2021 07:39:09 09/04/19 22 09/04/2021 TYPE AND SCREE N antibody screen NEGATI VE Not Available [facility] (Lab) [address], [place], [address], 09/06/2021 07:39:09 09/04/19 22 09/06/2021 TYPE AND SCREE N xm expiration 2021,2 359 Not Available [facility] (Lab) [address], [place], [address], 09/06/2021 07:39:09 09/04/19 22 09/06/2021 TYPE AND SCREE N comment NO HISTOR Y OF TRANSF USIONS ,PREGN FEDERICO OR ANTIBO DIES, NEW SPECIM EN NOT NEEDED Not Available [facility] (Lab) [address] [facility], [place], [address], 09/06/2021 07:39:09 09/06/19 22 09/06/2021 SERUM PREGN FEDERICO TEST serum test NEGATI VE Not Available [facility] (Lab) [address] [facility], [place], [address], 09/06/2021 07:48:49 09/06/19 22 09/06/2021 HGB AND HCT hemoglobin 10.1 g/dL 12.0-1 6.0 low Not Available [facility] (Lab) [address] [facility], [place], [address], 09/06/2021 13:27:24 09/06/19 22 09/06/2021 HGB AND HCT hematocrit 30.9 % 38.0-4 8.0 low Not Available [facility] (Lab) [address] [facility], [place], [address], 09/06/2021 13:27:24 09/06/19 22 09/07/2021 HE TIMI CAMELIA PATHO LOGY path report [facility] [address] [facility] [place] [address] Phone : [phone] Fax: Depar tment of Patho logy Patho logy Repor t SURGI CAMELIA FINAL REPOR T Patie nt Name: NITIN RUVALCABA S Acces eddie# : [id number] (Age: 40) Locat ion: BANG Lopez r: F Nehemiah cted Date: 2021 Med Rec #: [id number] Date Recei armani: 2021 Date Repor adia: 2021 Provi santos: MARA CÁRDENAS MD Speci men(s ) Uteru s with Cervi x Final Patho logic Diagn osis UTERU S AND CERVI X, HYSTE RECTO MY: - BENIG N CERVI X - INACT MOOKIE ENDOM ETRIU M WITH TUBAL METAP LASIA - ENDOM ETRIA L SCARR ING CONSI STENT WITH PRIOR ABLAT ION - ADENO MYOSI S - LEIOM YOMA - NO DYSPL COLEMAN, HYPER PLASI A, OR MALIG GAYLA Ely ctron icall y Lindsay d Out EROS Parnell MD Patho logis t OJL:l c Micro scopi c Descr iptio n: Micro scopi c exami natio n subst antia agustín the above capti oned diagn osis. Clini camelia Histo ry Dysme norrh ea Gross Descr iptio n Recei armani is a singl e forma alice-f illed conta iner label ed with the patie nt's name (Karrie Ruvalcaba ), date of ([birth year] 0), colle cted 09/06 at 8:30, and addit ional ly label ed uter us, cervi x. The speci men consi sts of a 72-gr am uteru s with attac hed cervi x measu ring 7.8 cm from fundu s to cervi x, 6.0 cm from cornu to cornu , and 3.7 cm from anter ior to poste rior uteri ne body with an attac hed cervi x measu ring 2.9 x 3.0 cm. The seros a is pink- escobedo and fercho h. The uteru s is bival armani to revea l a uteri ne cavit y that is irreg ular in shape and measu res 4.0 x 2.5 cm. The endom etriu m is marke dly dimin ished and avera ges 0.1 cm or less in thick ness. There is a cavit y prese nt in the anter ior uteri ne body measu ring 1.5 x 1.0 cm exten ding to a depth of 1.0 cm that conta ins hemor rhagi c fluid . The cervi camelia canal is paten t. The myome trium is pink- escobedo and marke dly trabe culat ed. The myome trium avera ges 1.8 cm in thick ness. Repre senta tive secti ons are submi tted as follo ws: 1 - Repre senta tive anter ior cervi x 2 - Repre senta tive poste rior cervi x 3,4 - Cavit y of anter ior myome trium submi tted entir ariana 5,6 - Repre senta tive full- thick ness anter ior endom yomet rium 7,8 - Repre senta tive full- thick ness poste rior endom yomet rium :lc Jose Antonio ng Fee Code( s): 88148 Not Available [facility] (Lab) [place], [address], 09/07/2021 17:36:10 Result Notes None recorded. Problems Name Problem SNOMED Code Status Onset Date Resolution Date Notes Provider Name and Address Organization Details Recorded Time Procedur e on genitour inary system Completed 202008/16/2021 Encounter for surgical aftercare following surgery on the genitouri nary system; Severity: Moderate Progress: Stable Added By: Karyn Freeman Add to Current Problems: YES ProblemSt atus: Current Saloni Kasi null, [facility] 2 14:42:23 Postoper ative care Completed 202008/16/2021 Encounter for surgical aftercare following surgery on the genitouri nary system; Severity: Moderate Progress: Stable Added By: Karyn Freeman Add to Current Problems: YES ProblemSt atus: Current Saloni Kasi null, [employer] [facility] 14:42:21 Chronic pancreat itis 402164175 Active 2021 Mara Borges MD [address] [place], [address], [employer] [facility] 2 14:50:21 Menometr orrhagia 766504053 Active 2021 Mara Borges MD [address] [place] [address], [address], [place] [facility] 2 14:50:20 Deficien cy anemias 890167641 Active 2021 Mara Borges MD [address] [place] [address], [address], [place] [facility] 14:50:21 History of blood transfus ion 664564782 Active 2021 Mara Borges MD [address] [place] [address], [address], [employer] [facility] 2 14:50:20 History of hysterec williams 815494150 Active 2021 Mara Borges MD [address] [place] [address], [phone], [employer] [facility] 2 14:50:20 Pancreat itis 76508871 Active 2019 Mara Borges MD [address] [place] [address], [address], [employer] [facility] 2 14:50:20 Hypertri glycerid emia 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 Procedures Surgical History Date Name Laterality Status Provider Name and Address Organization Details Recorded Time 09/06/19 22 Tlh uterus 250 g or less completed Jennifer Borges [employer] [facility] 02/01/2023 17:43:40 07/18/19 21 left salpingo-oophorec williams completed Abhi Darby MD [facility], [address] [place], [address], [facility] 08/22/2021 11:01:51 08/19/19 18 Date of Last Pap Smear completed Abhi Darby MD [address] [place] [address], [phone], [facility] 08/22/2021 11:07:25 Removal of adenoids completed Saloni Kasi [facility] 08/16/2021 14:49:29 section completed Saloni Kasi [place] - [facility] 08/16/2021 14:49:52 right salpingectomy completed Saloni Kasi [place] - [facility] 08/16/2021 14:51:43 Hysteroscopy ablation completed Saloni [facility] 08/16/2021 14:51:50 Imaging Results None recorded. Procedure Notes None recorded. Medical Equipment None Reported. Allergies Allergen ID Allergen Name Allergen Category Reaction Reaction Severity Criticality Documentation Date Start Date Code Code System Note Provider Name and Address Organization Details Recorded Time 651432 latex environme nt,medica tion hives Not available Not available 05/05/20212019 12442 91 RxNorm Mara Borges MD [address] [place] [address], [phone], [facility] 14:50:19 916460 Product containin g penicilli n (product) medicatio n Not available Not available Not available 05/05/20212020 88496 8001 SNOMED Sever ity: Moder ate; Not Available [facility] 01:16:56 106477 Zoloft medicatio n Not available Not available Not available 05/05/20212020 98681 RxNorm Sever ity: Moder ate; Not Available [facility] 01:16:56 198626 sertralin e medicatio n seizure Not available Not available 09/18/20212021 58987 RxNorm Mara Borges MD [address] [place] [address], [phone], [facility] [employer] [facility] 2 14:50:19 142740 penicilli n V Not available hives Not available Not available 09/18/20212019 7984 RxNorm Mara Borges MD [address] [facility], [place], [address], [facility] [employer] [facility] 2 14:50:19 Medications Name Sig Start Date Stop Date Status Note LastModified by Organization Details LastModified Time Colace 100 mg capsule 100 mg twice a day by oral route. 2021 active Not Available Not Available Not Avai lable ibuprofen 800 mg tablet 800 mg every 8 hours by oral route. 2021 active Not Available Not Available Not Avai lable hydroxyzi ne pamoate 50 mg capsule take 1-2 tabs PO BID PRN anxiety/ insomini a active Not Available Not Available No t Available metronida zole 500 mg tablet 500 mg by oral route. 09/14 completed Not Available Not Available Not Available hydrocodo ne 10 mg-acetam inophen 325 mg tablet 1 {tbl} every 8 hours by oral route. 09/06 completed Not Available Not Available Not Available acetamino phen 500 mg tablet 1000 mg every 6 hours by oral route. 09/06 completed Not Available Not Available Not Available oxycodone -acetamin ophen 5 mg-325 mg tablet Take 1 tablet every 12 hours by oral route as needed. 10/16 completed Not Available Not Available Not Available bupropion HCl 100 mg tablet Take 100 mg twice a day by oral route. active Not Available Not Available No t Available amlodipin e 10 mg tablet 10 mg by oral route. active Not Available Not Available No t Available pantopraz ole 40 mg tablet,de layed release TAKE 1 TABLET BY MOUTH ONCE DAILY 08/22 completed Not Available Not Available Not Available lisinopri l 20 mg-hydroc hlorothia zide 25 mg tablet active Not Available Not Available No t Available Provera 10 mg tablet 10 mg by oral route. 09/06 completed Not Available Not Available Not Available hydroxyzi ne HCl 25 mg tablet 1-2 tabs po q 6 hours prn 10/16 completed Not Available Not Available Not Available zolpidem 5 mg tablet 5 mg by oral route. active Not Available Not Available No t Available ergocalci ferol (vitamin D2) 1,250 mcg (50,000 unit) capsule TAKE 1 CAPSULE BY MOUTH ONCE A WEEK ON Mondays completed Not Available Not Available Not Available clotrimaz ole 1 % topical cream APPLY TO THE AFFECTED AND SURROUND ING AREAS OF SKIN BY TOPICAL ROUTE 2 TIMES PER DAY IN THE MORNING AND EVENING 2021 active Not Available Not Available Not Avai lable cholecalc iferol (vitamin D3) 125 mcg (5,000 unit) capsule 5000 units by oral route. 2021 active Not Available Not Available Not Avai lable Senokot-S 8.6 mg-50 mg tablet 1 {tbl} by oral route. 08/31 completed Not Available Not Available Not Available lactulose 10 gram/15 mL oral solution TAKE 30ML BY MOUTH TWICE DAILY FOR 10 DAYS 08/22 completed Not Available Not Available Not Available Fish Oil 08/22 completed Fish Oil Allow Substitu tion: False Refill Denied: No Refill DateOccu rred: 08/02/19 Edited by: Dixie Manzo ) on 08/02/19 21 Stopped by: Dixie Manzo ) on Not Available Not Available Not Available lisinopri l 10/17 completed lisinopr iL RxNorm: 921727 Refill Denied: No Refill DateOccu rred: 08/02/19 21 Edited by: Dixie Manzo ) on 08/02/19 21 Stopped by: melanie marsh(Dixie Ha ) on Not Available Not Available Not Available Vitamin D3 active Vitamin D3 Allow Substitu tion: False Refill Denied: No Refill DateOccu rred: 08/02/19 21 Edited by: Dixie Manzo ) on 08/02/19 21 Stopped by: Dixie Manzo ) on Not Available Not Available Not Available multivita min active multivit barnes Allow Substitu tion: False Refill Denied: No Refill DateOccu rred: 08/02/19 Edited by: Dixie Manzo ) on 08/02/19 21 Stopped by: Dixie Manoz ) on Not Available Not Available Not Available fenofibra te nanocryst allized 145 mg tablet 145 mg by oral route. 2021 active Not Available Not Available Not Avai lable Suprep Bowel Prep Kit 17.5 gram-3.13 gram-1.6 gram oral solution 12/21 completed Not Available Not Available Not Available Vitals Date Recorded Body height Body mass index (BMI) Body weight Body temperature Systolic And Diastolic Provider Name and Address Organization Details Last Updated DateTime 08/22/2021 167.64 cm 20.5 kg/m2 09549.5 1 g 98.4 [degF] 115/62 mm[Hg] Madeline Rodgers [facility] IV 2 10:18:42 Date Recorded Body height Body mass index (BMI) Body weight Body temperature Systolic And Diastolic Provider Name and Address Organization Details Last Updated DateTime 08/29/2021 167.64 cm 20.6 kg/m2 93714.1 g 98 [degF] 108/66 mm[Hg] [facility] [facility] CallMD IV 2 12:16:41 Date Recorded Body height Body mass index (BMI) Body weight Body temperature Systolic And Diastolic Provider Name and Address Organization Details Last Updated DateTime 09/19/2021 167.64 cm 21 kg/m2 36570.0 1 g 98 [degF] 110/70 mm[Hg] Yesica [facility] CallMD IV 2 09:23:14 Date Recorded Body height Body mass index (BMI) Body weight Body temperature Systolic And Diastolic Provider Name and Address Organization Details Last Updated DateTime 10/17/2021 167.64 cm 20.3 kg/m2 07340.6 4 g 97.8 [degF] 124/70 mm[Hg] [facility] CallMD IV 2 09:25:39 Date Recorded Body mass index (BMI) Body weight Systolic And Diastolic Provider Name and Address Organization Details Last Updated DateTime 12/21/2021 20.8 kg/m2 97388.98 g 120/70 mm[Hg] Yesica Joyner [facility] IV 12/21/2021 13:58:40 Date Recorded Body height Provider Name an d Address Organization Details Last Updated DateTime 12/21/2021 167.64 cm Karyn Wallis [employer] [facility] IV 12/21/2021 13:51:26 Social History Question Answer Notes LastModified by Organizat ion Details LastModified Time Tobacco Smoking Status Current Some Day Smoker Saloni Kasi hannah, [facility] IV 08/16/2021 14:53:11 Are You Blind Or Do You Have Difficulty Seeing? No [email or web address] Information not available 08/16/2021 Are You Deaf Or Do You Have Serious Difficulty Hearing? No Information not available 08/16/2021 What Type Of Diet Are You Following? REGULAR Information not available 10/17/2021 How Many Children Do You Have? 1 [email or web address] Information not available 08/16/2021 What Is Your Relationship Status? Single [email or web address] Information not available 08/16/2021 Are You Sexually Active? Yes [email or web address] Information not available 08/16/2021 Sex: Unknown Functional Status Question Answer Note LastModified by Organizat ion Details LastModified Time Do you use any illicit or recreational drugs? No [email or web address] Information not available 08/16/2021 What is your level of alcohol consumption? None [email or web address] Information not available 10/17/2021 Are you currently employed? 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 Family History Relationship Description Onset Age of this Age Resolved Age Notes LastModified by Organization Details LastModified Time Maternal Grandmother Hyperlipidem ia [email or web address] Not available 08/16 14:47:38 Unspecified Relation Mitral valve prolapse [email or web address] Not available 08/16 14:48:33 Notes:biological mat gm pass ed away at 54 from pancreatitis, mother had pancreatitis and t maternal cousins with pancreatitis and mat aunt as well and no pancreatic cancer Medical History Condition Response High Cholesterol Y Gynecological History Statement/Question Response If Post Menopausal, Age at Menopause 40 Frequency of Cycle (Q days) Date of LMP Most Recent Bone Density HPV Vaccine N Date of Last Pap Smear 08/19/2017 Most Recent Mammogram Current Control Method Sterilizati on Age at Menarche 10 Obstetrics History GPAL:G 5 P 1 1 3 1 Type Value Multiple Births 0 Full Term 1 Induced 0 Spontaneous 3 Premature 1 Living 1 Ectopics 0 Total 5 Immunizations Vaccine Type Date Status Note Provider Nam e and Address Organization Details Recorded Time Influenza, split virus, quadrivalent, PF 07/21/2021 completed Mara Borges MD [facility], 1929[id number] [place], [address], [facility] [employer] 09/18/2021 14:50:21 Past Encounters Encounter ID Performer Location Encounter Start Date Encounter Closed Date Diagnosis/Indication Diagnosis SNOMED-CT Code Diagnosis ICD10 Code Diagnosis Note [id number] Abhi Darby MD [facility] [address] [place] [address] 08/22/2021 09:57:11 08/22/2021 11:22:34 Menometrorrhagia 755027248 N92.1 COUNSELING was provided today regarding the following topics: . The surgical procedure for Da Charles total Laparoscop ic Hyst and bilateral salpingect calixto, the alternativ es and risks including but not limited to anethesia, bleeding, infection, injury to surroundin g organs, improper wound healing, DVT, VTE, PE, pneumonia, possible need for laparotomy , ureteral or bladder injury, , or possible need for more surgery at a later date were all discussed and explained. The procedure was explained with the aid of an anatomical model and pamphlet. The patient wants to keep her ovaries unless they look abnormal or we discussed removing them and ramificati ons of surgical menopause as well as recommend to do HRT in some regard . She understand s that her uterus is being removed and she then will not be able to carry a for herself or anyone else. The expected recovery was discussed. The patient was able to tell me back a good understand ing of the procedure, it's indication , the risks and recovery. She has no questions and wants to proceed as scheduled. .....remov e the remaining ovary if abnormal and we will do transderma l estrogen Anemia due to chronic blood loss 005046792 D50.0 Secondary dysmenorrhea 79677721 N94.5 she was cleard by hospitalis t to have surgery [id number] Mara Borges MD [address] [address] 08/29/2021 11:28:55 08/30/2021 11:55:38 Menometrorrhagia 815923739 N92.1 Discussed options for treatment of symptoms. Patient is most interested in hysterecto my. We discussed the planned procedure of Robotic TLH/possBS O/cystosco py. Patient is aware that there are alternativ e routes of hysterecto my and their associated risks and benefits. Reviewed risks including but not limited to bleeding, infection, injury and abdominal incision. Patient is aware that this is an outpatient procedure and understand s that certain criteria must be met before discharge. She is also aware of her restrictio ns in the immediate 2 week post op period and that she should follow up at 2 weeks and 6 weeks postoperat mookie. [id number] Mara Borges MD [address] [address] 09/19/2021 09:18:34 09/19/2021 11:39:40 Postoperative visit 104512405 Z09 Discussed postoperat mookie pathology with patient. Reviewed Surgical findings. Patient instructed to maintain strict pelvic rest and no heavy lifting greater than 20 lbs. She was instructed to return for a second postoperat mookie visit in 4 weeks to evaluated the vaginal cuff. All of her questions were answered. [id number] Mara Borges MD [address] [address] 10/17/2021 09:22:51 10/17/2021 09:54:59 Postoperative visit 421626284 Z09 Routine post operative care. May return to normal activities . Discussed careful return to vaginal intercours e. Reviewed Pathology findings with the patient. All questions answered to fullest extent. Follow up per routine [facility] care. Pain of scar 896105197 L 90.5 From previous c/s. Send to PT. Discussed trigger point injection with steroids/a nesthetic if PT does not help. [id number] Mara Borges MD [facility] [address] [place] [address] 12/21/2021 13:46:29 12/21/2021 14:24:52 Depressive disorder 01027144 F32.1 Refill until psychiatry appointmen t 04/2022 Tinea corporis 65936834 B35.4 Health Concerns Section Related Observation LastModified by Organization Detai ls LastModified Time None Recorded Concern Status LastModified by Organization Details LastModified Time None Recorded Advance Directives Directive None Recorded Payers Insurance Date Sequence Insurance Name Policy Number Policy Maki Covered Member ID Maki Member ID Guarantor Name 08/23/2021 2 [place] [employer] Steffanie Ruvalcaba [id number] Steffanie Ruvalcaba 01/18/2022 2 [facility] - DOS ON OR AFTER 21 (MEDICAID REPLACEMENT - HMO) Steffanie Ruvalcaba [id number] Steffanie Ruvalcaba 08/22/2021 2 [facility] (MEDICAID REPLACEMENT - HMO) Steffanie Ruvalcaba [id number] Steffanie Ruvalcaba 01/18/2022 1 [facility] [id number] Steffanie Ruvalcaba [id number] Steffanie Ruvalcaba Notes Date Note Type Note Provider Name and Address Organization Details Recorded Time 08/22/2021 text/html Pre-Op OBGYN HPIReported bypatient.Risk Factorsno cognitive impairment; no functional impairment; no malnutrition; no frailty; able to climb a flight of stairs (exercise capacity>4 METS); no obstructive sleep apnea; non-smoker; no alcohol misuse; no illicit drug use; no chronic cardiopulmonary condition; not obese Anesthesia hx:no hx of anesthesia complications; no allergy to anesthetic agents; no family history of anesthesia complications Past surgical issuesNo previous surgical complications Bleeding disordersNo bleeding / clotting issues Abhi Darby MD [address] [place], [address], [facility] [employer] 08/22/2021 11:22:20 08/29/2021 text/html Pre-Op OBGYN HPIReported bypatient.Surgery to be Performed:Robotic TLH / BSO / Cysto on 09/06/2021 Steffanie here for pre op visit Mara Borges MD [address] [place] [address], [phone], [facility] [employer] IV 08/30/2021 19:26:41 09/19/2021 text/html Post-OpReported bypatient.Onset/Timin g:date of surgery: (09/06/2021) Quality:procedure: (Robotic TLH) Associated Symptoms:incision healing well; normal appetite; normal bowel function; no constipation; no fever; no bleeding; no lower extremity edema/pain;nausea;saima n Steffanie here for 2 week post op visit Mara Borges MD [address] [place] [address], [phone], [facility] [employer] IV 09/19/2021 09:44:53 10/17/2021 text/html Post-OpReported bypatient.Onset/Timin g:date of surgery: (09/06/2021) Quality:procedure: (Robotic TLH) Associated Symptoms:incision healing well; normal appetite; normal bowel function; no constipation; no nausea; no emesis; no fever; no bleeding; no lower extremity edema/pain; no dysuria/urinary symptoms;fatigue;pain Notes:Patient having pain near site of old c/s scar. States this has been present for 3 years. States it is aggravated with intercourse. Describes it as pressure. Positional. Steffanie here for 6 week post op Mara Borges MD [address] [place] [address], [phone], [facility] [employer] IV 10/17/2021 09:54:49 12/21/2021 text/html Steffanie here due to abdominal discomfort , had Robotic hysterectomy 09/2021 incision spot that red and sore and painful which is the abdominal discomfort, also new PCP wont refill Wellbutrin due to originally ordered by [employer] doctor asking if can get refilled she has been off for 3 weeks and fisher is not good. Told needed to sign hysterectomy papers. Mara Borges MD [address] [place] [address], [phone], [facility] 01/13/2022 09:35:53 OBGyn Episode No OBEpisode recorded.
--- OUTSIDE RECORDS SUMMARY | 2025-01-15 00:14 | XMS_ITS | Referral Summary ---
Author Organization [facility] [address] [facility] Address [address] [place] [address] Care Team Providers Care Pattern Setter Name Role Phone Alfie Cervantes MD Primary Care Provider [phone] Angela Dos Santos PA Unavailable [phone] Helen Calabrese NP Unavailable [phone] Encounters Date Type Department Care Team Description 11/30/2024 8:30 AM CDT Office Visit [facility] Care at [address] [phone] Jenelle Oglesby NP Encounter for staple removal (Primary Dx) 11/25/2024 10:34 AM CDT - 11/25/2024 11:59 PM CDT Hospital Encounter [facility] [address] [place] [address] Closed fracture of proximal phalanx of digit of right hand with routine healing, subsequent encounter Discharge Disposition: Discharge to home or self care 11/25/2024 11:00 AM CDT Office Visit [facility] Hand Surgery [address] [place] [address] [address] [place] [address] Salbador Hartley MD Closed fracture of proximal phalanx of digit of right hand with routine healing, subsequent encounter (Primary Dx) 11/24/2024 12:32 AM CDT - 11/24/2024 1:43 AM CDT Emergency [facility] Emergency Department [address] [place] [address] Scalp laceration, initial encounter (Primary Dx); Fall, initial encounter; Neck pain Discharge Disposition: Discharge to home or self care 11/04/2024 10:00 AM CDT Ancillary Procedure [facility] Hand Surgery [address] [place] [address] [place] [phone] 11/04/2024 9:30 AM CDT Office Visit [facility] Hand Surgery [address] [place] [address] [place] [phone] Salbador Hartley MD Injury of finger of right hand, initial encounter (Primary Dx); Closed fracture of proximal phalanx of digit of right hand with routine healing, subsequent encounter from Last 3 Months Allergies Active Allergy Reactions Criticality Noted Date Comments Gadolinium-Containing Contrast Media Shortness of breath,Swelling High 04/11/2022 Throat started swelling during MRI Latex Hives Medium 06/29/2022 Penicillins Hives,Other (See comments) Medium 07/14/2020 Product containing penicillin (product) Tolerates carbapenems 02/2022 Sertraline Seizures,Other (See comments) High 08/02/2020 Was taking 48 hrs, had uncontrollable seizures Zoloft Medications fenofibrate (TRIGLIDE) 160 mg tablet 06/19/20 22 Active hydrOXYzine (VISTARIL) 50 mg capsule hydroxyzine pamoate 50 mg capsule Active pantoprazole DR (PROTONIX) 40 mg EC tablet Take 1 tablet (40 mg total) by mouth every morning 05/15/20 22 Active rivaroxaban (XARELTO) 20 mg tablet Xarelto 20 mg tablet TAKE 1 TABLET BY MOUTH DAILY WITH SUPPER. TAKE WITH FOOD Active Creon 24,000-76,000 -120,000 unit capsule 06/13/20 22 Active celecoxib (CeleBREX) 100 mg capsule Take 1 capsule (100 mg total) by mouth 2 (two) times a day Active cholecalciferol (VITAMIN D-3) 5,000 unit capsuleIndications :Vitamin D deficiency Take 2 capsules (10,000 Units total) by mouth every 7 days 50 capsule 3 08/11/19 24 Active buPROPion XL (WELLBUTRIN XL) 300 mg 24 hr tablet Take 1 tablet (300 mg total) by mouth daily Active lidocaine (LIDODERM) 5 % Place 1 patch on the skin daily Remove & discard patch within 12 hours or as directed by MD. Active oxyCODONE (ROXICODONE) 10 mg tabletIndications: Pain Take 1 tablet (10 mg total) by mouth 4 (four) times a day as needed for pain Active polyethylene glycol (MIRALAX) 17 gram/dose bulk powder Take 17 g by mouth daily Active senna (SENOKOT) 8.6 mg tablet Take 1 tablet by mouth daily Active fluticasone propionate (FLONASE) 50 mcg/actuation nasal spray Administer 1 spray into each nostril daily Active cyclobenzaprine (FLEXERIL) 10 mg tablet Take 1 tablet (10 mg total) by mouth 05/11/20 24 Active ondansetron ODT (ZOFRAN-ODT) 4 mg disintegrating tablet Take 1 tablet (4 mg total) by mouth every 8 (eight) hours as needed 07/22/19 24 Active hydrOXYzine (ATARAX) 50 mg tablet 08/11/19 25 Active ergocalciferol (VITAMIN D) 50,000 unit capsule 08/11/19 25 Active dicyclomine (BENTYL) 20 mg tablet Take 1 tablet (20 mg total) by mouth every 6 (six) hours 07/22/19 24 Active albuterol HFA (PROVENTIL HFA,VENTOLIN HFA,PROAIR HFA) 90 mcg/actuation inhaler 11/11/19 25 Active HYDROcodone-acetam inophen (NORCO) 5-325 mg per tablet 0 11/12/19 25 Active Active Problems Problem Noted Date Diagnosed Date Injury of finger of right hand 10/14/2024 Fall 10/14/2024 Closed fracture of proximal phalanx of right [place] d 10/14/2024 Acute pancreatitis, unspecif ied complication status, unspecified pancreatitis type 10/06/2023 Absence of cervix 02/01/2023 Hypertriglyceridemia 07/02/2022 Chronic pancreatitis 07/02/2022 Exocrine pancreatic insufficiency 07/02/2022 Gastroesophageal reflux disease 07/02/2022 Pancreatitis, necrotizing 02/11/2022 Diarrhea 10/23/2021 Overview (11/30/2024): Added automatically from request for surgery [id number] Menometrorrhagia 09/05/2021 S/P hysterectomy 09/05/2021 Anemia, deficiency 08/27/2021 Acute pancreatitis without n ecrosis or infection, unspecified 07/13/2020 PTSD (post-traumatic stress disorder) 09/12/2009 PMDD (premenstrual dysphoric disorder) 4 Social History Tobacco Use Types Packs/Day Years Used Date Smoking Tobacco: Former Cigarettes Tobacco Cessation:Counseling Given: Not Answered [facility] Utilities Answer Date Recorded In the past 12 months has th e electric, gas, oil, or water company threatened to shut off services in your home? No 10/07/2023 Social Connection and Isolat ion Panel [NHANES] Answer Date Recorded In a typical week, how many times do you talk on the phone with family, friends, or neighbors? More than three times a week 10/07/2023 How often do you get togethe r with friends or relatives? More than three times a week 10/07/2023 How often do you attend chur ch or orthodoxy services? Never 10/07/2023 Do you belong to any clubs o r organizations such as pentecostalism groups, unions, fraternal or athletic groups, or school groups? No 10/07/2023 How often do you attend meet ings of the clubs or organizations you belong to? Never 10/07/2023 Are you , , di vorced, , never , or living with a partner? 10/07/2023 AUDIT-C Answer Date Recorded Q1: How often do you have a drink containing alcohol? Never 10/06/2023 Q2: How many drinks containi ng alcohol do you have on a typical day when you are drinking? Patient does not drink Q3: How often do you have si x or more drinks on one occasion? Never 10/06/2023 Overall Financial Resource Strain (CARDIA) Answe r Date Recorded How hard is it for you to pa y for the very basics like food, housing, medical care, and heating? Somewhat hard 10/07/2023 Hunger Vital Sign Answer Date Recorded Within the past 12 months, y ou worried that your food would run out before you got the money to buy more. Never true 10/07/19 24 Within the past 12 months, t he food you bought just didn't last and you didn't have money to get more. Never true 10/07/2023 PRAPARE - Transportation Answer Date Re corded In the past 12 months, has l ack of transportation kept you from medical appointments or from getting medications? No 09/13 In the past 12 months, has l ack of transportation kept you from meetings, work, or from getting things needed for daily living? No 10/07/2023 Housing Stability Vital Sign Answer German e Recorded In the last 12 months, was t here a time when you were not able to pay the mortgage or rent on time? No 10/07/2023 In the last 12 months, how many places have you lived? 1 10/07/2023 In the last 12 months, was t here a time when you did not have a steady place to sleep or slept in a snf (including now)? No 10/07/2023 Personal Safety Answer Date Recorded Have you ever been in or are you currently in a harmful physical or emotional relationship or is someone making you feel afraid or unsafe? Denies 11/23/2024 Comments No Sex and Gender Information Value Date Recorded Sex Assigned at Not on file Legal Sex Female 9:46 AM GENERAL EXPEDITOR Gender Identity Female 08/08/2023 12:53 AM GENERAL EXPEDITOR Sexual Orientation Straight 08/08/2023 12 :53 AM GENERAL EXPEDITOR Last Filed Vital Signs Vital Sign Reading Time Taken Comments Blood Pressure 135/72 11/30/2024 8:34 AM CDT Pulse 72 11/30/2024 8:34 AM CDT Temperature 37.1 C (98.7 F) 11/30/2024 8:34 AM CDT Respiratory Rate 21 11/30/2024 8:34 AM CDT Oxygen Saturation 99% 11/30/2024 8:34 AM CDT Inhaled Oxygen Concentration - - Weight 54.4 kg (120 lb) 11/30/2024 8:34 AM CDT Height 167.6 cm (5' 6) 11/30/2024 8:34 AM CDT Body Mass Index 19.37 11/30/2024 8:34 AM CDT Plan of Treatment Not on file Procedures Procedure Name Priority Date/Time Associated Diagnosis Comments NE REMOVAL SUTURES/TYLER NOT REQUIRING ANESTHESIA Routine 11/30/2024 8:54 AM CDT Encounter for staple removal XR HAND RIGHT 3 OR MORE VIEWS Schedule Routine, Read Routine (OP Routine) 11/25/2024 10:38 AM CDT Closed fracture of proximal phalanx of digit of right hand with routine healing, subsequent encounter CT CERVICAL SPINE WO CONTRAST ED 11/24/2024 1:26 AM CDT ED LACERATION REPAIR Routine 11/24/2024 1:[address] HEAD WO CONTRAST ED 11/23/2024 10:34 PM CDT POCT GLUCOSE DEVICE Routine 11/23/2024 10:20 PM CDT XR HAND RIGHT 3 OR MORE VIEWS Schedule Routine, Read Routine (OP Routine) 11/05/2024 6:26 AM CDT Injury of finger of right hand, initial encounter from Last 3 Months Results * NE REMOVAL SUTURES/TYLER NOT REQUIRING ANESTHESIA (11/30/2024 8:54 AM CDT) Narrative Jenelle Oglesby NP - 11/30/2024 8:54 AM CDT Jenelle Oglesby NP 11/30/2024 9:00 AM Suture Removal Date/Time: 11/30/2024 8:54 AM Performed by: Jenelle Oglesby NP Authorized by: Jenelle Oglesby NP To generate suggested charges, all areas highlighted in orange must be documented. If there are no orange regions, a default charge will not be suggested. The procedure documentation in the form should sufficiently describe the procedure performed. Lab orders must be placed in the Orders section of the visit taskbar.: RN Notified of Procedure: yes Informed consent: Risks, benefits, alternatives discussed Patient's stated name/ matches armband: Yes Consent form signed, dated, timed; matches correct patient, intended procedure and site: Yes Supplies, devices and special equipment are available: yes Anesthesia: Local anesthesia used?: Yes Location: Body area: Head/neck Location details: Scalp Location details: Scalp Location details: Scalp Location details: Scalp Location details: Scalp Procedure details: Wound appearance: Clean [place] removed: Yes [place] removed: 5 Suture and/or tyler initally placed by: Not myself or within my group Post-removal: Antibiotic ointment applied patient tolerated the procedure well with no immediate complications us Jenelle Oglesby HEAT TREATER APPRENTICE IN CLINIC/BEDSIDE ORDERABL ES Final Result * XR Hand Right 3 or More Views (11/25/2024 10:38 AM CDT) Anatomical Region Laterality Modality Upper Extremities, Hand Right Computed Radiography 12/09/2024 5:51 AM CDT Narrative 12/09/2024 5:52 AM CDT EXAM DESCRIPTION: XR HAND RIGHT 3 OR MORE VIEWS REASON FOR STUDY: Right hand injury TECHNIQUE: AP lateral and oblique radiographic view(s) of the right hand . COMPARISON: November 04, 2024 FINDINGS: AP lateral and oblique x-rays right hand show healing of a proximal phalanx fracture of the small finger IMPRESSION: Right small finger proximal phalanx fracture THIS IS AN ELECTRONICALLY VERIFIED FINAL REPORT 12/09/2024 5:52 AM - Electronically signed by Salbador Hartley TL T: Report ID: [id number] Reading Location: [place] [address] Procedure Note Salbador Hartley MD - 12/09/2024 EXAM DESCRIPTION: XR HAND RIGHT 3 OR MORE VIEWS REASON FOR STUDY: Right hand injury TECHNIQUE: AP lateral and oblique radiographic view(s) of the right hand. COMPARISON: November 04, 2024 FINDINGS: AP lateral and oblique x-rays right hand show healing of aproximal phalanx fracture of the small finger IMPRESSION: Right small finger proximal phalanx fracture THIS IS AN ELECTRONICALLY VERIFIED FINAL REPORT 12/09/2024 5:52 AM - Electronically signed by Salbador Hartley TL T: Report ID: [id number] Reading Location: [place] [address] us Salbador Hartley MD IMG XR PROCEDURES Final Result * CT Cervical Spine WO Contrast (11/24/2024 1:26 AM CDT) Anatomical Region Laterality Modality Spine N/A Computed Tomogra phy 11/24/2024 1:29 AM CDT Narrative 11/24/2024 1:31 AM CDT EXAM DESCRIPTION: CT CERVICAL SPINE WO CONTRAST REASON FOR STUDY: NECK PAIN, FIRST STUDY, Fall Patient on Xarelto. Patient doing pull ups when the bar broke and struck her in the head. Patient unsure of LOC. Patient reported some nausea after incident. Laceration and hematoma to scalp, pressure dressing placed in triage. Patient ambulatory with steady gait. TECHNIQUE: Axial images through the cervical spine with sagittal and coronal reformatted images. Automated exposure control was used as a dose optimization technique for this examination. COMPARISON: None FINDINGS: ALIGNMENT: Normal. VERTEBRAE: No fracture. Vertebral body heights well-maintained. DISCS: Disc heights well-maintained. HARDWARE: None in the spine. INDIVIDUAL DISC LEVELS: No significant osseous spinal canal or neural foraminal stenosis. UPPER THORACIC: Incompletely imaged. No significant osseous spinal stenosis or osseous neural foraminal stenosis. SKULL BASE: No significant finding. LUNG APICES: No significant abnormality. NECK SOFT TISSUES: No significant abnormality. OTHER: No other significant findings. IMPRESSION: Normal cervical spine CT. THIS IS AN ELECTRONICALLY VERIFIED FINAL REPORT 11/24/2024 1:31 AM - Electronically signed by Huy Rosas M.D. KT: KT Report ID: [id number] Reading Location: [id number] Procedure Note Huy Rosas MD - 11/24/2024 EXAM DESCRIPTION: CT CERVICAL SPINE WO CONTRAST REASON FOR STUDY: NECK PAIN, FIRST STUDY, Fall Patient on Xarelto. Patient doing pull ups when the bar broke and struckher in the head. Patient unsure of LOC. Patient reported some nausea after incident. Laceration and hematoma to scalp, pressure dressing placedin triage. Patient ambulatory with steady gait. TECHNIQUE: Axial images through the cervical spine with sagittal andcoronal reformatted images. Automated exposure control was used as a doseoptimization technique for this examination. COMPARISON: None FINDINGS: ALIGNMENT: Normal. VERTEBRAE: No fracture. Vertebral body heights well-maintained. DISCS: Disc heights well-maintained. HARDWARE: None in the spine. INDIVIDUAL DISC LEVELS: No significant osseous spinal canal or neural foraminal stenosis. UPPER THORACIC: Incompletely imaged. No significant osseous spinalstenosis or osseous neural foraminal stenosis. SKULL BASE: No significant finding. LUNG APICES: No significant abnormality. NECK SOFT TISSUES: No significant abnormality. OTHER: No other significant findings. IMPRESSION: Normal cervical spine CT. THIS IS AN ELECTRONICALLY VERIFIED FINAL REPORT 11/24/2024 1:31 AM - Electronically signed by Huy Rosas M.D. KT: MITCHELL Report ID: [id number] Reading Location: [place] [address] us Cassandra Lockhart NP IMG CT PROCEDURES Final Re sult * Laceration Repair (11/24/2024 1:16 AM CDT) Narrative Cassandra Lockhart NP - 11/24/2024 1:16 AM CDT Cassandra Lockhart NP 12/19/2024 1:57 AM Laceration Repair Date/Time: 11/24/2024 1:16 AM Performed by: Cassandra Lockhart NP Authorized by: Rj Stone Jr., MD RN Notified of Procedure: yes Informed consent: Risks, benefits, alternatives discussed Patient's stated name/ matches armband: Yes Allergies confirmed: yes Imaging: Pertinent imaging reviewed, correctly oriented and match to patient identifiers Lab/Diag test results: N/a Supplies, devices and special equipment are available: yes Site/side marked: yes Immediately prior to the procedure a time out was called: a verbal verification by the procedure participants confirmed correct patient identity, correct site/side marked and visible (if applicable); agreement on procedure to be done; and correct patient positioning Anesthesia method: Topical application Topical anesthetic: LET gel Sedation used: no Location: Scalp Scalp location: Frontal Length (cm): 2 Preparation: Patient was prepped and draped in usual sterile fashion and imaging obtained to evaluate for foreign bodies Hemostasis achieved with: Direct pressure Contaminated: no Area cleansed with: Saline (peroxide) Amount of cleaning: Standard Irrigation solution: Sterile saline Irrigation volume: 50 ml Irrigation method: Syringe Visualized foreign bodies/material removed: no Repair method: Tyler Number of tyler: 5 Approximation: Close Vermilion border: well-aligned Dressing: Bulky dressing Patient tolerance of procedure: Tolerated well, no immediate complications us Rj Stone Jr., MD IN CLINIC/BEDSIDE ORDER LINA Final Result * CT Head WO Contrast (11/23/2024 10:34 PM CDT) Anatomical Region Laterality Modality Head and Neck N/A Computed Tomogra phy 11/23/2024 11:0 9 PM CDT Narrative 11/23/2024 11:12 PM CDT EXAM DESCRIPTION: CT HEAD WO CONTRAST REASON FOR STUDY: Facial trauma, blunt Patient on Xarelto. Patient doing pull ups when the bar broke and struck her in the superior/frontal head. Patient unsure of LOC. Patient reported some nausea after incident. TECHNIQUE: Axial images acquired through the brain without intravenous contrast. Images stored on PACS. Automated exposure control was used as a dose optimization technique for this examination. COMPARISON: None FINDINGS: BRAIN: No hemorrhage, edema or mass effect. No recent infarct. Normal white matter. EXTRA-AXIAL SPACES: No fluid collections. No masses. CALVARIUM: No fracture. Small superior frontal scalp edema and hematoma. SINUSES/MASTOIDS: No fluid or mucosal thickening. ORBITS: No significant abnormality. OTHER: No other significant abnormality. IMPRESSION: No acute intracranial findings. THIS IS AN ELECTRONICALLY VERIFIED FINAL REPORT 11/23/2024 11:12 PM - Electronically signed by Huy Rosas M.D. KT: MITCHELL Report ID: [id number] Reading Location: [id number] Procedure Note Huy Rosas MD - 11/23/2024 EXAM DESCRIPTION: CT HEAD WO CONTRAST REASON FOR STUDY: Facial trauma, blunt Patient on Xarelto. Patient doing pull ups when the bar broke and struckher in the superior/frontal head. Patient unsure of LOC. Patient reported some nausea after incident. TECHNIQUE: Axial images acquired through the brain without intravenous contrast. Images stored on PACS. Automated exposure control was used asa dose optimization technique for this examination. COMPARISON: None FINDINGS: BRAIN: No hemorrhage, edema or mass effect. No recent infarct. Normal white matter. EXTRA-AXIAL SPACES: No fluid collections. No masses. CALVARIUM: No fracture. Small superior frontal scalp edema andhematoma. SINUSES/MASTOIDS: No fluid or mucosal thickening. ORBITS: No significant abnormality. OTHER: No other significant abnormality. IMPRESSION: No acute intracranial findings. THIS IS AN ELECTRONICALLY VERIFIED FINAL REPORT 11/23/2024 11:12 PM - Electronically signed by Huy Rosas M.D. KT: MITCHELL Report ID: [id number] Reading Location: [place] [address] Rj Stone Jr., MD IMG CT PROCEDURES Final Result * POCT glucose (11/23/2024 10:20 PM CDT) [facility] Signature Glucose, POC 128 70 - 199 mg/dL Comment:Testing performed by : [facility], [address] [place] [address]., [id number] Blood 11/23/2024 10:2 0 PM CDT 11/23/2024 10:20 PM CDT Notinfile Unknown LAB POCT ORDERABLES - DEVICE F inal Result [facility] [address] [facility] of [facility] [place] [address] * XR Hand Right 3 or More Views (11/05/2024 6:26 AM CDT) Anatomical Region Laterality Modality Upper Extremities, Hand Right Computed Radiography Narrative 11/05/2024 6:26 AM CDT AP lateral and oblique x-rays on the mini C arm showed continued visualization of the proximal phalanx fracture with slight signs of healing of the angular fracture, but the fracture line was still visible. Salbador Hartley MD IMG XR PROCEDURES Final Result from Last [address] [place] [address] [address] [place] [address] [facility] CHOICE PLUS Advance Directives For more information, please contact: [phone] * Full Code (Latest Code Status on File) Date Activated Date Inactivated Comments 10/06/2023 8:48 PM 10/09/2023 7:15 PM Care Teams Pattern Setter Relationship Specialty Start Date End Date Alfie Cervantes MD [address] [place] [address] PCP - General Gastroenterology 06/05/22 Angela Dos Santos PA [address] [place] [address] Physician Artillery Meteorological Man 06/05/22 Helen Calabrese HEAT TREATER APPRENTICE [address] [facility] [place] [address] Nurse Practitioner Family Practice 10/09/23
--- OUTSIDE RECORDS SUMMARY | 2025-01-15 00:14 | XMS_ITS | Clinical Summary ---
Author Organization [facility] [address] [facility] Address [address] [place] [address] Care Team Providers Care Technician Trainee Name Role Phone Alfie Cervantes MD Primary Care Provider [phone] Angela Dos Santos PA Unavailable [phone] Helen Calabrese NP Unavailable [phone] Allergies Active Allergy Reactions Criticality Noted Date [...] (11/30/2024): Added automatically from request for surgery [id number] Menometrorrhagia 09/05/2021 S/P hysterectomy 09/05/2021 Anemia, deficiency 08/27/2021 Acute pancreatitis without n ecrosis or infection, unspecified 07/13/2020 PTSD (post-traumatic stress disorder) 09/12/2009 PMDD (premenstrual dysphoric disorder) 4 Encounters Date Type Department Care Team Description 11/30/2024 8:30 AM CDT Office Visit [facility] at [address] [phone] Jenelle Oglesby NP Encounter for staple removal (Primary Dx) 11/25/2024 11:00 AM CDT Office Visit [facility] [address] [place] [phone] Salbador Hartley MD Closed fracture of proximal phalanx of digit of right hand with routine healing, subsequent encounter (Primary Dx) 11/25/2024 10:34 AM CDT - 11/25/2024 11:59 PM CDT Hospital Encounter [facility] [address] [place] [phone] Closed fracture of proximal phalanx of digit of right hand with routine healing, subsequent encounter Discharge Disposition: Discharge to home or self care 11/24/2024 12:32 AM CDT - 11/24/2024 1:43 AM CDT Emergency [facility] Emergency Department [address] [place] [phone] Scalp laceration, initial encounter (Primary Dx); Fall, initial encounter; Neck pain Discharge Disposition: Discharge to home or self care 11/04/2024 10:00 AM CDT Ancillary Procedure [facility] [address] [place] [phone] 11/04/2024 9:30 AM CDT Office Visit [facility] [address] [place] [phone] Salbador Hartley MD Injury of finger of right hand, initial encounter (Primary Dx); Closed fracture of proximal phalanx of digit of right hand with routine healing, subsequent encounter from Last 3 Months Medical History Medical History Date Comments Depression Gastric reflux Hypertension Hypercholesteremia Migraines Poor circulation Family History Medical History Relation Name Comments Arthritis Father Stroke Father Diabetes Mother Heart disease Mother Relation Name Status Comments Father Mother Social History Tobacco Use Types Packs/Day Years Used Date Smoking Tobacco: Former Cigarettes Tobacco Cessation:Counseling Given: Not Answered [facility] Utilities Answer Date Recorded In the past 12 months has e electric, gas, oil, or water company [...] often do you attend chur ch or nondenominational services? Never 10/07/2023 Do you belong to any clubs o r organizations such as yazidi groups, unions, fraternal or athletic groups, or [...] No 10/07/2023 Housing Stability Vital Sign Answer Germna e Recorded In the last 12 months, [...] place to sleep or slept in a penitentiary (including now)? No 10/07/2023 Personal Safety Answer Date Recorded Have you ever been in or are you currently in a harmful physical or emotional relationship or is someone making you feel afraid or unsafe? Denies 11/23/2024 Comments No Sex and Gender Information Value Date Recorded Sex Assigned at Not on file Legal Sex Female 9:46 AM HONEY PRODUCER Gender Identity Female 08/08/2023 12:53 AM HONEY PRODUCER Sexual Orientation Straight 08/08/2023 12 :53 AM HONEY PRODUCER Obstetrics History Last Filed Vital Signs Vital Sign Reading [...] 11/30/2024 8:34 AM CDT Plan of Treatment Health Maintenance Due Date Last Done Comments Breast Cancer Screening-Mammogram 1979 Colon Cancer Screening-Colonoscopy 1979 Depression Screening 1979 Hepatitis C Screening 1979 DTaP/Tdap/Td Vaccine (1 - Tdap) 11/18/1990 Varicella Vaccines (1 of 2 - 13+ 2-dose series) 11/18/1992 Hepatitis B Screening 11/18/1997 Regular Well Visit/Exam 18-64 11/18/1997 Influenza Vaccine (Season Ended) 2025 09/07/2022, 07/21/2021 HPV Vaccines Aged Out No longer eligi ble based on patient's age to complete this topic Pneumococcal vaccine <65 Aged Out No longer eligible based on patient's age to complete this topic Procedures Procedure Name Priority Date/Time Associated Diagnosis Comments [place] REMOVAL SUTURES/TYLER NOT REQUIRING ANESTHESIA Routine 11/30/2024 [...] encounter from Last 3 Months Results * [place] REMOVAL SUTURES/TYLER NOT REQUIRING ANESTHESIA (11/30/2024 8:54 AM CDT) Narrative Jenelle Oglesby, PATTERN MOLDER - 11/30/2024 8:54 AM CDT Jenelle Oglesby [...] details: Scalp Procedure details: Wound appearance: Clean Tyler removed: Yes [place]ber[place] removed: 5 Suture and/or tyler initally placed by: Not myself or within my group Post-removal: Antibiotic ointment applied patient tolerated the procedure well with no immediate complications Jenelle Oglesby NP IN CLINIC/BEDSIDE ORDERABL ES Final Result * [...] 5:52 AM - Electronically signed by Salbador SHARMA T: Report ID: [id number] Reading Location: [place] [address] Procedure Note Salbador Hartley MD - 12/09/2024 [...] AM - Electronically signed by Salbador Hartley T: Report ID: [id number] Reading Location: [place] [address] Salbador Hartley MD IMG XR PROCEDURES Final [...] Huy Rosas M.D. KT: MITCHELL Report ID: [id number] Reading Location: [id number] Procedure Note Huy Rosas MD - 11/24/2024 [...] Huy Rosas M.D. KT: KT Report ID: [id number] Reading Location: [place] [address] Cassandra Lockhart NP IM CT PROCEDURES Final Re sult * Laceration [...] Huy Rosas M.D. KT: MITCHELL Report ID: [id number] Reading Location: [place] [address] Procedure Note Huy Rosas MD - 11/23/2024 [...] Huy Rosas M.D. KT: MITCHELL Report ID: [id number] Reading Location: [place] [address] us Rj Stone Jr., MD [facility] [place] PROCEDURES Final Result * POCT glucose (11/23/2024 10:20 PM CDT) [facility] Signature Glucose, POC 128 70 - 199 mg/dL Comment:Testing performed by : [facility], [address] [place] [address]., [address] Blood 11/23/2024 10:2 0 PM CDT 11/23/2024 10:20 PM CDT Notinfile Unknown LAB POCT ORDERABLES - DEVICE F inal Result [facility] [address] [facility] Department [place] [address] * XR Hand Right 3 or More [...] Final Result from Last [address] [place] [address] [place] [address] [facility] CHOICE PLUS Advance Directives For more information, please contact: [phone] * Full Code (Latest Code Status on File) Date Activated Date Inactivated Comments 10/06/2023 8:48 PM 10/09/2023 7:15 PM Care Teams Technician Trainee Relationship Specialty Start Date End Date Alfie Cervantes MD [address] [address] PCP - General Gastroenterology 06/05/22 Angela Dos Santos PA [address] [place] [id number] Physician Operations Engineer 06/05/22 Helen Calabrese NP [address] [place] [address] JOSE MERLOS [id number] Nurse Practitioner Family Practice 10/09/23
--- OUTSIDE RECORDS SUMMARY | 2025-01-15 00:14 | XMS_ITS | Clinical Summary ---
Author Organization [facility] Care Team Providers Care Dynamometer Tuner Name Role Phone Unavailable Primary Care Provider Unavailabl e Social History Tobacco Use Types Packs/Day Years Used Date Smoking Tobacco: Never Assessed Comments Unknown Sex and Gender Information Value Date Recorded Sex Assigned at Not on file Legal Sex Female 9:45 AM OFFICE CLIN ASST Gender Identity Not on file Sexual Orientation Not on file Plan of Treatment Health Maintenance Due Date Last Done Comments Hepatitis C Virus (HCV) Screening 1979 TdaP Immunization 1979 Hepatitis B Immunization (1 of 3 - 19+ 3-dose series) 11/18/1998 Pap Smear 11/18/2000 Cervical Cancer Screening (CCS) 11/18/2009 HPV/Cotest 11/18/2009 Discussion re Starting/Frequ ency of Mammograms 2019 Influenza Immunization (#1) 2024 SARS-COV-2 Immunization ( season) 2024 Respiratory Syncytial Virus (RSV) Immunization (Adult) (1 - 1-dose 75+ series) 11/18/2054 Meningococcal Immunization (ACWY) Aged Out No longer eligible based on patient's age to complete this topic Pneumococcal Immunization Combined Aged Out No longer eligible based on patient's age to complete this topic Rotavirus Immunization Aged Out No lo nger eligible based on patient's age to complete this topic
[2025-01-15 00:21] LABS: Add Urine Microscopic? NO; Appearance Urine Clear (Clear); Glucose Urine UA Negative (Negative); Leukocyte Esterase Ur Negative LEU/UL (Negative); Nitrate Urine Negative (Negative); Specific Grav Ur 1.010 (1.001-1.035)
[2025-01-15 00:26] LABS: Alanine Aminotransferase 51 U/L (6-35); Albumin Level 4.5 g/dL (3.5-5.1); Alkaline Phosphatase 55 U/L (38-126); Anion Gap 17 mmol/L (4-12); Aspartate Amino Transferase 59 U/L (14-36); Bilirubin,Total 0.2 mg/dL (0.2-1.3); Blood Urea Nitrogen 11 mg/dL (7-17); Calcium 9.2 mg/dL (8.4-10.2); Carbon Dioxide 22 mmol/L (22-30); Chloride 109 mmol/L (98-107); Estimated CRCL calculation 95 ml/min; Estimated Glomerular Filt Rate > 60; Glucose 118 mg/dL (65-110); Potassium 3.8 mmol/L (3.4-5.0); Sodium 148 mmol/L (137-145); Total Protein 7.8 g/dL (6.3-8.2)
[2025-01-15 00:46] LABS: Influenza A QL RT-PCR Negative (Negative); Influenza B QL RT-PCR Negative (Negative); RSV RNA, RT-PCR Negative (Negative); SARS-CoV-2 RNA PCR Negative (Negative)
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
[2025-01-15] MEDS: LACTATED RINGERS 1,000 ML 999 ML IV CONT (01:17)
[2025-01-15 01:50] LABS: Cannabinoid Screen Urine Positive (Negative)
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
--- NOTE | 2025-01-15 07:38 | PC.NURSE ---
Patient A&Ox4 at this time and denies any thoughts of SI/HI. Patient given water and resting in stretcher at this time with service dog.
[2025-01-15 07:43] VITALS: BP 158/91; PULSE 65; RESP 18; O2SAT 98
--- NOTE | 2025-01-15 10:33 | PC.NURSE ---
Spoke with Funmilayo from crisis. She states someone should be out to see patient for evaluation in at the most 90minutes
== END 2025-01-15 12:07 | disposition home or self-care (01) ==
PROVIDERS: Emergency Provider Student in an Organized Health Care Education/Training Program; PCP Physician Assistant
DX: F10.129 Alcohol abuse with intoxication, unspecified (principal); R45.851 Suicidal ideations; Z20.822 Contact with and (suspected) exposure to COVID-19; Y90.9 Presence of alcohol in blood, level not specified; Y09 Assault by unspecified means
CPT/HCPCS: 36415; 70450; 70486; 80053; 80307; 81003; 81025; 82077; 85025; 87637; 93005; 96360; 99284; J7120

== ENCOUNTER 2025-01-28 12:19 | Observation (INO) | payer OTHER, SELFPAY ==
[2025-01-28] VITALS (10 sets, daily range): BP systolic 147–166; BP diastolic 80–89; PULSE 63–69; RESP 16; TEMP 36.4–36.6; O2SAT 98–100; BMI 20.6
--- NOTE | ~2025-01-28 | CT_ITS ---
EXAMINATION: CT abdomen pelvis w con DATE: 01/28/2025 14:19 INDICATION: Upper abdomen pain. History of chronic pancreatitis. TECHNIQUE: Computed tomography (CT) of the abdomen and pelvis was performed with 100 cc Omnipaque 350 intravenous contrast. The dose-length product was 233.28 mGy-cm. Automated exposure control and iter ative reconstruction technique were employed. COMPARISON: CT dated 02/28/2012. FINDINGS: Lung bases unremarkable. Heart size normal. No significant pleural or pericardial effusion. Fatty infiltration of the liver. Gallbladder mildly distended, nonspecific. The spleen, adrenal glan ds and kidneys are unremarkable. Nonobstructive bowel gas pattern. No evidence for diverticulitis. Ga llbladder is present. No hydronephrosis. No significant vascular abnormality. No lymphadenopathy. No acute osseous abnormality. There are calcifications of the pancreatic head consistent with chronic pa ncreatitis. IMPRESSION: 1. No acute abdominal abnormality. 2: Chronic pancreatitis. Reviewed, dictated and finalized at location B.
[2025-01-28 12:51] LABS: Hematocrit 38.7 % (37.0-47.0); Hemoglobin 12.3 g/dL (12.0-15.0); Immature Granulocyte Percent A 0.5 % (0-0.5); Lymphocytes Absolute Auto 1.20 K/mm3 (0.9-3.2); Mean Corpuscular HGB Conc 31.8 g/dl (32-36); Mean Corpuscular Hemoglobin 30.2 pg (26-34); Mean Corpuscular Volume 95.1 fl (80-100); Nucleated Red Blood Cells Absolute Auto 0.000 K/mm3 (0.0-0.012); Nucleated Red Blood Cells Perc 0.0 % (0.0-0.2); Platelet Count Result 250 k/mm3 (150-375); Red Blood Count 4.07 M/mm3 (4.2-5.4); White Blood Count 12.1 K/mm3 (4.5-10.0)
[2025-01-28 12:58] LABS: Add Urine Microscopic? YES; Appearance Urine Clear (Clear); Glucose Urine UA Negative (Negative); Leukocyte Esterase Ur Trace LEU/UL (Negative); Nitrate Urine Negative (Negative); Non Pathogenic Casts 0-2; Specific Grav Ur 1.021 (1.001-1.035)
--- OUTSIDE RECORDS SUMMARY | 2025-01-28 13:08 | XMS_ITS | Encounter Summary ---
Author Organization [facility] Address [facility] [place] [address] Care Team Providers Care Shift Stacker Name Role Phone Kelsie Jeffries MD Primary Care Provider [phone] Angela Dos Santos PA-C Primary Care Provider [phone] Encounter Details Date Type Department Care Team (Late st Contact Info) Description 08/10/2021 Hospital Follow-up Call [facility] Med/Surg [address] [place] [address] Meghan Forte, RN Social History Tobacco Use [...] Coronavirus / COVID-19? Yes 07/20/2021 10:28 AM J2EE JAVA DEVELOPER documented as of this encounter Functional Status * RETIRED Are you deaf or do you have serious difficulty hearing Answer Date of Assessment Author Status No 07/21/2021 5:40 PM J2EE JAVA DEVELOPER Activ e * RETIRED Are you blind or do you have serious difficulty seeing, even when wearing glasses? Answer Date of Assessment Author Status No 07/21/2021 5:40 PM J2EE JAVA DEVELOPER Activ e * Do you have serious difficulty walking or climbing stairs? Answer Date of Assessment Author Status No 07/21/2021 5:40 PM J2EE JAVA DEVELOPER Rakers Chloe S, R N Active * Do you have difficulty dressing or bathing? Answer Date of Assessment Author Status No 07/21/2021 5:40 PM J2EE JAVA DEVELOPER Rakers, Chloe S, R N Active * Because of a physical, mental, or emotional condition, do you have difficulty doing errands alone such as visiting a doctor's office or shopping? Answer Date of Assessment Author Status No 07/21/2021 5:40 PM J2EE JAVA DEVELOPER Rakers, Chloe S, R N Active documented as of this encounter Mental Status * Because of a physical, mental, or emotional condition, do you have serious difficulty concentrating, remembering, or making decisions? Answer Entry Date Author Status No 07/21/2021 5:40 PM J2EE JAVA DEVELOPER Rafanys Chloe S, R N Active documented in this encounter Progress Notes * Meghan Forte RN - 08/10/2021 5:14 PM CST Had no c/o any and states she would absolutely recommend the hospital. J2EE JAVA DEVELOPER documented in this encounter Plan of Treatment [...] Rule Out 09/04/2021 09/04/2021 09/04/2021 10:17 AM J2EE JAVA DEVELOPER COVID-19 Rule Out 11/10/2021 11/10/2021 11/10/2021 7:05 PM CDT MRSA Comment:02/20/22 citlaly (SB) 02/20/2022 02/20/2022 documented as of this encounter Care Teams Shift Stacker Relationship Specialty Start Date End Date Kelsie Jeffries MD [facility] [address] [place] [id number] PCP - General FAMILY PRACTICE 07/14/20 02/06/22 Angela Dos Santos PA-C . [facility] [address] [place] [id number] PCP - General PHYSICIAN STUDENT OFFICER 02/07/22 documented as of this encounter
--- OUTSIDE RECORDS SUMMARY | 2025-01-28 13:08 | XMS_ITS | Encounter Summary ---
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 Answer Date of Assessment Author Status No 07/21/2021 5:40 PM MACHINE PACKAGING TECHNICIAN Activ e * Do you have serious difficulty walking or climbing stairs? Answer Date of Assessment Author Status No 07/21/2021 5:40 PM MACHINE PACKAGING TECHNICIAN Chloe Guerra S, R N Active * Do you have difficulty dressing or bathing? Answer Date of Assessment Author Status No 07/21/2021 5:40 PM MACHINE PACKAGING TECHNICIAN Chloe Guerra S, R N Active * Because of a physical, mental, or emotional condition, do you have difficulty doing errands alone such as visiting a doctor's office or shopping? Answer Date of Assessment Author Status No 07/21/2021 5:40 PM MACHINE PACKAGING TECHNICIAN Chloe Guerra S, R N Active * Calculated C-SSRS Risk Score (Lifetime/Recent) Answer Date of Assessment Author Status No Risk Indicated 11/13/2021 12:21 PM CDT Anna Juarez RN Active * [place] Suicide Severity Rating Scale (Screener/Recent Self-Report) Question [...] Date Author Status No 07/21/2021 5:40 PM MACHINE PACKAGING TECHNICIAN Chloe Guerra R N Active documented in [...] SPEC DESCRIPTION NASAL 11/11/19 10:13 AM CDT [facility] CORONAVIRUS SARS COV 2 PCR (RESP) NEGATIVE NEGATIVE 11/10/2021 7:05 PM CDT [facility] () [facility] Comment: THE SARS-CoV-2 TEST HAS BEEN AUTHORIZED BY THE FDA UNDER AN EUA FOR USE BY AUTHORIZED LABORATORIES. PERFORMED BY NUCLEIC ACID AMPLIFICATION PCR FIRST TEST NO 11/10/2021 10:13 AM CDT [facility] EMPLOYED IN HEALTHCARE NO 11/10/2021 10:13 AM CDT [facility] SYMPTOMATIC DEFINED BY CDC UNKNOWN 11/10/2021 10:13 AM CDT [facility] HOSPITALIZATION STATUS NO 11/10/2021 10:13 AM CDT [facility] PATIENT IN ICU NO 11/10/2021 10:13 AM CDT [facility] RESIDENT OF [facility] C[facility] NO 11/10/2021 10:13 AM CDT [facility] NOT 11/10/2021 10:13 AM CDT [facility] NASAL STRUCTURE / Unknown 11/10/2021 9:15 AM CDT us Alfie Cervantes MD MICROBIOLOGY - GENERAL ORDERABLE S Final Result [facility] [address] [facility] [place] [address], [place] [phone] [facility] [address] [place] [id number], [place] [phone] documented in this encounter Visit Diagnoses Diagnosis Abdominal pain- Primary Abdominal pain, unspecified site documented in this encounter Additional Health Concerns Infection Onset Date Last Indicated Resolved Time COVID-19 Rule Out 11/10/2021 11/10/2021 11/10/2021 7:05 PM CDT MRSA Comment:02/20/22 citlaly (SB) 02/20/2022 02/20/2022 documented as of this encounter Care Teams Prefinish Operator Relationship Specialty Start Date End Date Kelsie Jeffries MD . [facility] [address] [place] [id number] PCP - General FAMILY PRACTICE 07/14/20 02/06/22 Angela Dos Santos, PASarahC . [facility] [address] [place] [address] PCP - General PHYSICIAN QUALITY ASSURANCE NURSE 02/07/22 documented as of this encounter
--- OUTSIDE RECORDS SUMMARY | 2025-01-28 13:08 | XMS_ITS | Encounter Summary ---
Author Organization [facility] Address [address] [place] [address] Phone Care Team Providers Care Photographic Equipment Technician Name Role Phone Alfie Cervantes MD Primary Care Provider [phone] Angela Dos Santos PA Unavailable [phone] Helen Calabrese LINOTYPE MECHANIC Unavailable [phone] Encounter Details Date Type Department Care Team (Late st Contact Info) Description 08/29/2022 Orders Only [facility] Scanning, Provider Social History Tobacco Use Types Packs/Day Years Used Date Smoking Tobacco: Never Assessed Comments Unknown Sex and Gender Information Value Date Recorded Sex Assigned at Not on file Legal Sex Female 9:46 AM PARTS COUNTER REPRESENTATIVE Gender Identity Female 08/08/2023 12:53 AM PARTS COUNTER REPRESENTATIVE Sexual Orientation Straight 08/08/2023 12 :53 AM PARTS COUNTER REPRESENTATIVE documented as of this encounter Plan of Treatment Not on file documented as of this encounter Procedures Procedure Name Priority Date/Time Associated Diagnosis Comments SCAN - RADIOLOGY/IMAGING 08/29/2022 documented in this encounter Results * SCAN - RADIOLOGY/IMAGING (08/29/2022) Anatomical Region Laterality Modality Other us Provider Scanning Final Result documented in this encounter Visit Diagnoses Not on filedocumented in this encounter Care Teams Photographic Equipment Technician Relationship Specialty Start Date End Date Alfie Cervantes MD [address] [address] PCP - General Gastroenterology 06/05/22 Angela Dos Satnos PA [facility] [place] [address] Physician Maintenance Supervisor 2Nd Shift 06/05/22 Helen Calabrese LINOTYPE MECHANIC [facility] [place] [address] Nurse Practitioner Family Practice 10/09/23 documented as of this encounter
--- OUTSIDE RECORDS SUMMARY | 2025-01-28 13:08 | XMS_ITS | Encounter Summary ---
Author Organization [facility] Address [address] [place] [address] Phone Care Team Providers Care Membership Director Name Role Phone Angela Dos Santos Primary Care Provider [phone] Alfie Cervantes MD Primary Care Provider [phone] Angela Dos Santos Unavailable [phone] Helen Calabrese NP Unavailable [phone] Encounter Details Date Type Department Care Team (Late st Contact Info) Description 04/25/2022 Orders Only [facility] Scanning, Provider Social History Tobacco Use Types Packs/Day Years Used Date Smoking Tobacco: Never Assessed Comments Unknown Sex and Gender Information Value Date Recorded Sex Assigned at Not on file Legal Sex Female 9:46 AM COMPONENT PREP OPERATOR Gender Identity Female 08/08/2023 12:53 AM COMPONENT PREP OPERATOR Sexual Orientation Straight 08/08/2023 12 :53 AM COMPONENT PREP OPERATOR documented as of this encounter Plan [...] on filedocumented in this encounter Care Teams Membership Director Relationship Specialty Start Date End Date Angela Dos Santos PA [address] [place] [address] PCP - General Physician Avionics Electrical Engineer 05/25/22 06/04/22 Alfie Cervantes MD [address] [address] PCP - General Gastroenterology 06/05/22 Angela Dos Santos PA [address] [place] [address] Physician Avionics Electrical Engineer 06/05/22 Helen Calabrese, PARTY COORDINATOR [address] [facility] [place] [address] Nurse Practitioner Family Practice 10/09/23 documented as of this encounter
--- OUTSIDE RECORDS SUMMARY | 2025-01-28 13:08 | XMS_ITS | Encounter Summary ---
Author Organization [facility] Address [address] [place] [address] Phone Care Team Providers Care Educational Therapy Teacher Name Role Phone Angela Dos Santos Primary Care Provider Alfie Cervantes MD Primary Care Provider [phone] Angela Dos Santos Unavailable [phone] Helen Calabrese NP Unavailable [phone] Encounter Details Date Type Department Care Team (Late st Contact Info) Description 03/27/2022 Orders Only [facility] Scanning, Provider Social History Tobacco Use Types Packs/Day Years Used Date Smoking Tobacco: Never Assessed Comments Unknown Sex and Gender Information Value Date Recorded Sex Assigned at Not on file Legal Sex Female 9:46 AM CAKE FROSTER Gender Identity Female 08/08/2023 12:53 AM CAKE FROSTER Sexual Orientation Straight 08/08/2023 12 :53 AM CAKE FROSTER documented as of this encounter Plan of Treatment Not on file documented as of this encounter Procedures Procedure Name Priority Date/Time Associated Diagnosis Comments SCAN - RADIOLOGY/IMAGING 03/27/2022 documented in this encounter Results * SCAN - RADIOLOGY/IMAGING (03/27/2022) Anatomical Region Laterality Modality Other us Provider Scanning Final Result documented in this encounter Visit Diagnoses Not on filedocumented in this encounter Care Teams Educational Therapy Teacher Relationship Specialty Start Date End Date Angela Dos Santos PA [address] [place] [address] PCP - General Physician Stripper Apprentice 05/25/22 06/04/22 Alfie Cervantes MD [address] [address] PCP - General Gastroenterology 06/05/22 Angela Dos Santos PA [address] [place] [address] Physician Stripper Apprentice 06/05/22 Helen Calabrese CHIEF CONTROLLER TOWER [facility] [place] [address] Nurse Practitioner Family Practice 10/09/23 documented as of this encounter
--- OUTSIDE RECORDS SUMMARY | 2025-01-28 13:08 | XMS_ITS | Data Portability ---
Author Organization [employer] [facility] , [facility] Address [address] [place] [address] Assessment No assessment recorded. Plan of Treatment Reminders Order Date Submit Date Provider Last Modified By Organization Details Last Modified Time Details Appointments None recorded. Lab CBC w/ auto diff 2021 JOSE [email or web address], [address] [place], [address], 05:51:37 Referral physical therapist referral - Right sided c/s scar pain (from 2006) 2021 [facility] [place], [facility], [place], [address], 13:34:54 Procedures None recorded. Surgeries None recorded. Imaging None recorded. Medication Orders clotrimazo le 1 % topical cream 2021 JOSE Not available 14:26:14 bupropion HCl 100 mg tablet 2021 JOSE Not available 14:26:16 Patient TargetsNo targets recorded. Patient InstructionsNo instructions recorded. Reason for Referral Physical Therapist Referral for Pain of scar Right sided c/s scar pain (from 2006) Referring Physician: Mara Borges, CUSTOMER SUPPORT COORDINATOR, Encounter Date: 10/17/2021 Results Created Date Observation Date Name Description Value Unit Range Abnormal Flag Note LastModifiedBy Organization Detail LastModifiedTime 08/22/19 22 08/23/2021 CBC (INCL UDES DIFF/ PLT) white blood cell count 11.9 thous and/u L 3.8-10 .8 high Not Available [address], [address], 08/23/2021 05:51:37 08/22/19 22 08/23/2021 CBC (INCL UDES DIFF/ PLT) red blood cell count 3.81 evelin on/uL 3.80-5 .10 normal Not Available [address], [address], 08/23/2021 05:51:37 08/22/19 22 08/23/2021 CBC (INCL UDES DIFF/ PLT) hemoglobin 11.2 g/dL 11.7-1 5.5 low Not Available [email or web address] [address], [address], 08/23/2021 05:51:37 08/22/19 22 08/23/2021 CBC (INCL UDES DIFF/ PLT) hematocrit 34.4 % 35.0-4 5.0 low Not Available [email or web address] [address], [address], 08/23/2021 05:51:37 08/22/19 22 08/23/2021 CBC (INCL UDES DIFF/ PLT) MCV 90.3 fL 80.0-1 00.0 normal Not Available [email or web address] [address], [address], 08/23/2021 05:51:37 08/22/19 22 08/23/2021 CBC (INCL UDES DIFF/ PLT) MCH 29.4 pg 27.0-3 3.0 normal Not Available [email or web address] [address], [address], 08/23/2021 05:51:37 08/22/19 22 08/23/2021 CBC (INCL UDES DIFF/ PLT) MCHC 32.6 g/dL 32.0-3 6.0 normal Not Available [address], [address], 08/23/2021 05:51:37 08/22/19 22 08/23/2021 CBC (INCL UDES DIFF/ PLT) RDW 12.6 % 11.0-1 5.0 normal Not Available [address], [address], 08/23/2021 05:51:37 08/22/19 22 08/23/2021 CBC (INCL UDES DIFF/ PLT) platelet count 605 thous and/u L 140-40 0 high Not Available [address], [address], 08/23/2021 05:51:37 08/22/19 22 08/23/2021 CBC (INCL UDES DIFF/ PLT) MPV 11.1 fL 7.5-12 .5 normal Not Available [address], [address], 08/23/2021 05:51:37 08/22/19 22 08/23/2021 CBC (INCL UDES DIFF/ PLT) absolute neutrophils 7188 cells /uL 1500-7 800 normal Not Available [address], [address], 08/23/2021 05:51:37 08/22/19 22 08/23/2021 CBC (INCL UDES DIFF/ PLT) absolute lymphocytes 3618 cells /uL 850-39 00 normal Not Available [address], [address], 08/23/2021 05:51:37 08/22/19 22 08/23/2021 CBC (INCL UDES DIFF/ PLT) absolute monocytes 785 cells /uL 200-95 0 normal Not Available [address], [address], 08/23/2021 05:51:37 08/22/19 22 08/23/2021 CBC (INCL UDES DIFF/ PLT) absolute eosinophils 214 cells /uL 15-500 normal Not Available [address], [address], 08/23/2021 05:51:37 08/22/19 22 08/23/2021 CBC (INCL UDES DIFF/ PLT) absolute basophils 95 cells /uL 0-200 normal Not Available [facility] [address], [address], 08/23/2021 05:51:37 08/22/19 22 08/23/2021 CBC (INCL UDES DIFF/ PLT) neutrophils 60.4 % normal Not Available [facility] [address], [address], 08/23/2021 05:51:37 08/22/19 22 08/23/2021 CBC (INCL UDES DIFF/ PLT) lymphocytes 30.4 % normal Not Available [facility] [address], [address], 08/23/2021 05:51:37 08/22/19 22 08/23/2021 CBC (INCL UDES DIFF/ PLT) monocytes 6.6 % normal Not Available [facility] [address], [address], 08/23/2021 05:51:37 08/22/19 22 08/23/2021 CBC (INCL UDES DIFF/ PLT) eosinophils 1.8 % normal Not Available [facility] [address], [address], 08/23/2021 05:51:37 08/22/19 22 08/23/2021 CBC (INCL UDES DIFF/ PLT) basophils 0.8 % normal Not Available [facility] [address], [address], 08/23/2021 05:51:37 09/04/19 22 09/04/2021 CORON AVIRU [...] AUTHO RIZED LABOR ATORI ES. Not Available [facility] (Lab) [place], [address], 09/04/2021 11:17:22 09/04/19 22 09/04/2021 CORON AVIRU S (COVI D 19) ANTIG EN specimen type NASAL Not Available [facility] (Lab) [place], [address], 09/04/2021 11:17:22 09/04/19 22 09/04/2021 CORON AVIRU S (COVI D 19) ANTIG EN first test? NO Not Available [facility] (Lab) [place], [address], 09/04/2021 11:17:22 09/04/19 22 09/04/2021 CORON AVIRU S (COVI D 19) ANTIG EN employed in healthcare? NO Not Available [facility] (Lab) [place], [address], 09/04/2021 11:17:22 09/04/19 22 09/04/2021 CORON AVIRU S (COVI D 19) ANTIG EN symp defined by cdc? NO Not Available [facility] (Lab) [address] [facility], [place], [address], 09/04/2021 11:17:22 09/04/19 22 09/04/2021 CORON AVIRU S (COVI D 19) ANTIG EN hospitalized ? NO Not Available [facility] (Lab) [address] [place], [address], 09/04/2021 11:17:22 09/04/19 22 09/04/2021 CORON AVIRU S (COVI D 19) ANTIG EN ICU? NO Not Available [facility] (Lab) [address] [facility], [place], [address], 09/04/2021 11:17:22 09/04/19 22 09/04/2021 CORON AVIRU S (COVI D 19) ANTIG EN res congregate care? NO Not Available [facility] (Lab) [address] [facility], [place], [address], 09/04/2021 11:17:22 09/04/19 22 09/04/2021 CORON AVIRU S (COVI D 19) ANTIG EN ? NOT PREGNA NT Not Available [facility] (Lab) [address] [facility], [place], [address], 09/04/2021 11:17:22 09/04/19 22 09/04/2021 CBC WITH DIFF WBC 9.2 x10'3 /uL 4.5-11 .0 Not Available [facility] (Lab) [place], [address], 09/04/2021 11:57:22 09/04/19 22 09/04/2021 CBC WITH DIFF RBC 3.64 x10'6 /uL 4.20-5 .40 low Not Available [facility] (Lab) [address], [place], [address], 09/04/2021 11:57:22 09/04/19 22 09/04/2021 CBC WITH DIFF hemoglobin 10.9 g/dL 12.0-1 6.0 low Not Available [facility] (Lab) [address], [place], [address], 09/04/2021 11:57:22 09/04/19 22 09/04/2021 CBC WITH DIFF hematocrit 34.1 % 38.0-4 8.0 low Not Available [facility] (Lab) [address], [place], [address], 09/04/2021 11:57:22 09/04/19 22 09/04/2021 CBC WITH DIFF MCV 93.7 fL 81.0-9 9.0 Not Available [facility] (Lab) [address], [place], [address], 09/04/2021 11:57:22 09/04/19 22 09/04/2021 CBC WITH DIFF MCH 29.9 pg 27.0-3 1.0 Not Available [facility] (Lab) [address], [place], [address], 09/04/2021 11:57:22 09/04/19 22 09/04/2021 CBC WITH DIFF MCHC 32.0 g/dL 32.0-3 6.0 Not Available [facility] (Lab) [address], [place], [address], 09/04/2021 11:57:22 09/04/19 22 09/04/2021 CBC WITH DIFF RDW 14.8 % 11.5-1 4.5 high Not Available [facility] (Lab) [address], [place], [address], 09/04/2021 11:57:22 09/04/19 22 09/04/2021 CBC WITH DIFF platelet count 467 x10'3 /uL 130-40 0 high Not Available [facility] (Lab) [address], [place], [address], 09/04/2021 11:57:22 09/04/19 22 09/04/2021 CBC WITH DIFF MPV 10.1 fL 9.3-12 .2 Not Available [facility] (Lab) [address], [place], [address], 09/04/2021 11:57:22 09/04/19 22 09/04/2021 CBC WITH DIFF diff type AUTOMA AIDA DIFFER ENTIAL Not Available [facility] (Lab) [address], [place], [address], 09/04/2021 11:57:22 09/04/19 22 09/04/2021 CBC WITH DIFF neutrophils 62.4 % Not Available [facility] (Lab) [address], [place], [address], 09/04/2021 11:57:22 09/04/19 22 09/04/2021 CBC WITH DIFF lymphocytes 27.9 % Not Available [facility] (Lab) [address], [place], [address], 09/04/2021 11:57:22 09/04/19 22 09/04/2021 CBC WITH DIFF monocytes 7.8 % Not Available [facility] (Lab) [address] [facility], [place], [address], 09/04/2021 11:57:22 09/04/19 22 09/04/2021 CBC WITH DIFF eosinophils 0.8 % Not Available [facility] (Lab) [address] [facility], [place], [address], 09/04/2021 11:57:22 09/04/19 22 09/04/2021 CBC WITH DIFF basophils 0.8 % Not Available [facility] (Lab) [address] [facility], [place], [address], 09/04/2021 11:57:22 09/04/19 22 09/04/2021 CBC WITH DIFF immature granulocytes 0.3 % Not Available [facility] (Lab) [address] [facility], [place], [address], 09/04/2021 11:57:22 09/04/19 22 09/04/2021 CBC WITH DIFF abs. neutrophils 5.72 x10'3 /uL 1.80-7 .70 Not Available [facility] (Lab) [address] [facility], [place], [address], 09/04/2021 11:57:22 09/04/19 22 09/04/2021 CBC WITH DIFF abs. lymphocytes 2.56 x10'3 /uL 1.00-4 .80 Not Available [facility] (Lab) [address] [facility], [place], [address], 09/04/2021 11:57:22 09/04/19 22 09/04/2021 CBC WITH DIFF abs. monocytes 0.71 x10'3 /uL 0.24-0 .86 Not Available [facility] (Lab) [address] [facility], [place], [address], 09/04/2021 11:57:22 09/04/19 22 09/04/2021 CBC WITH DIFF abs. eosinophils 0.07 x10'3 /uL 0.04-0 .36 Not Available [facility] (Lab) [address], [place], [address], 09/04/2021 11:57:22 09/04/19 22 09/04/2021 CBC WITH DIFF abs. basophils 0.07 x10'3 /uL 0.01-0 .08 Not Available [facility] (Lab) [address], [place], [address], 09/04/2021 11:57:22 09/04/19 22 09/04/2021 CBC WITH DIFF abs. immature grans 0.03 x10'3 /uL 0.00-0 .49 Not Available [facility] (Lab) [address], [place], [address], 09/04/2021 11:57:22 09/04/19 22 09/04/2021 TYPE AND SCREE N ABO/Rh(D) A POSITI VE Not Available [facility] (Lab) [address], [place], [address], 09/06/2021 07:39:09 09/04/19 22 09/04/2021 TYPE AND SCREE N antibody screen NEGATI VE Not Available [facility] (Lab) [address], [place], [address], 09/06/2021 07:39:09 09/04/19 22 09/06/2021 TYPE AND SCREE N xm expiration 2021,2 359 Not Available [facility] (Lab) [address], [place], [address], 09/06/2021 07:39:09 09/04/19 22 09/06/2021 TYPE AND SCREE N comment NO HISTOR Y OF TRANSF USIONS ,PREGN FEDERICO OR ANTIBO DIES, NEW SPECIM EN NOT NEEDED Not Available [facility] (Lab) [facility], [place], [address], 09/06/2021 07:39:09 09/06/19 22 09/06/2021 SERUM PREGN FEDERICO TEST serum test NEGATI VE Not Available [facility] (Lab) [facility], [place], [address], 09/06/2021 07:48:49 09/06/19 22 09/06/2021 HGB AND HCT hemoglobin 10.1 g/dL 12.0-1 6.0 low Not Available [facility] (Lab) [facility], [place], [address], 09/06/2021 13:27:24 09/06/19 22 09/06/2021 HGB AND HCT hematocrit 30.9 % 38.0-4 8.0 low Not Available [facility] (Lab) [facility], [place], [address], 09/06/2021 13:27:24 09/06/19 22 09/07/2021 HE [facility] [address] [place] [address] Phone : [phone] Fax: Depar tment of Patho logy Patho logy Repor t SURGI CAMELIA FINAL REPOR T Patie nt Name: NITIN RUVALCABA S Acces eddie# : [id number] : [id number] (Age: 40) Locat ion: BANG Lopez r: F Nehemiah cted Date: 2021 Med Rec #: [id number] Date Recei armani: 2021 Date Repor aida: 2021 Provi santos: MARA CÁRDENAS MD Speci [...] ed with the patie nt's name (Karrie Ruvalcaab ), date of ([birth year] 0), colle cted [...] :lc Jose Antonio ng Fee Code( s): 60872 Not Available [facility] (Lab) [place], [address], 09/07/2021 17:36:10 Result Notes None recorded. Problems Name Problem SNOMED Code Status Onset Date Resolution Date Notes Provider Name and Address Organization Details Recorded Time Pancreat itis 42124695 Active 2019 Mara Borges MD [address] [facility], [place], [address] [facility] 2 14:50:20 Procedur e on genitour inary system Completed 202008/16/2021 Encounter for surgical aftercare following surgery on the genitouri nary system; Severity: Moderate Progress: Stable Added By: Karyn Freeman Add to Current Problems: YES ProblemSt atus: Current Saloni [place], [place] Resident [facility] 2 14:42:23 Postoper ative care Completed 202008/16/2021 Encounter for surgical aftercare following surgery on the genitouri nary system; Severity: Moderate Progress: Stable Added By: Karyn Freeman Add to Current Problems: YES ProblemSt atus: Current Saloni h[place] - [facility] 2 14:42:21 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 2021 Mara Borges MD [address] [place] [address], [phone], [employer] [facility] 2 14:50:21 Chronic pancreat itis 696156775 Active 2021 Mara Borges MD [address] [place] [address], [address], [employer] [facility] 2 14:50:21 Deficien cy anemias 228219048 Active 2021 Mara Borges MD [address] [place] [address], [address], [employer] [facility] IV 2 14:50:21 History of blood transfus ion 078285224 Active 2021 Mara Borges MD [address] [place] [address], [address], [employer] [facility] 2 14:50:20 Menometr orrhagia 477917372 Active 2021 Mara Borges MD [address] [place] [address], [address], [employer] [facility] 2 14:50:20 History of hysterec williams 124333096 Active 2021 Mara Borges MD [address] [place] [address], [address], [employer] [facility] 2 14:50:20 Uterine cervix absent 207771320 Active 2022 Jennifer Borges null, [employer] - [facility] 3 17:44:01 Problem Notes None recorded. Procedures Surgical History Date Name Laterality Status Provider Name and Address Organization Details Recorded Time 09/06/19 22 Tlh uterus 250 g or less completed Jennifer Borges [employer] [facility] 02/01/2023 17:43:40 07/18/19 21 left salpingo-oophorec williams completed Abhi Darby MD [facility] [place], [address], [facility] - [facility] 08/22/2021 11:01:51 08/19/19 18 Date of Last Pap Smear completed Abhi Darby MD [address] [place] [address], [phone], [facility] - [facility] 08/22/2021 11:07:25 Removal of adenoids completed Saloni K[place] - [facility] 08/16/2021 14:49:29 section completed Saloni Kasi [place] - [facility] 08/16/2021 14:49:52 right salpingectomy completed Saloni Kasi [place] - [facility] 08/16/2021 14:51:43 Hysteroscopy ablation completed Saloni [facility] - [facility] 08/16/2021 14:51:50 Imaging Results None recorded. Procedure Notes None recorded. Medical Equipment None Reported. Allergies Allergen ID Allergen Name Allergen Category Reaction Reaction Severity Criticality Documentation Date Start Date Code Code System Note Provider Name and Address Organization Details Recorded Time 860166 latex environme nt,medica tion hives Not available Not available 05/05/20212019 55355 91 RxNorm Mara Borges MD [address] [place] [address], [phone], [facility] 14:50:19 736412 Product containin g penicilli n (product) medicatio n Not available Not available Not available 05/05/20212020 96670 8001 SNOMED Sever ity: Moder ate; Not Available [facility] 01:16:56 158903 Zoloft medicatio n Not available Not available Not available 05/05/20212020 46465 RxNorm Sever ity: Moder ate; Not Available [facility] 01:16:56 771636 sertralin e medicatio n seizure Not available Not available 09/18/20212021 28942 RxNorm Mara Borges MD [address] [place] [address], [address], [facility] IV 2 14:50:19 377955 penicilli n V Not available hives Not available Not available 09/18/20212019 7984 RxNorm Mara Borges MD [address] [facility], [place], [address], [facility] 2 14:50:19 Medications Name Sig Start [...] lisinopri l 10/17 completed lisinopr iL RxNorm: 550510 Refill Denied: No Refill DateOccu rred: 08/02/19 [...] Updated DateTime 08/22/2021 167.64 cm 20.5 kg/m2 85276.5 1 g 98.4 [degF] 115/62 mm[Hg] Madeline Rodgers [facility] IV 2 10:18:42 Date Recorded Body height Body mass index (BMI) Body weight Body temperature Systolic And Diastolic Provider Name and Address Organization Details Last Updated DateTime 08/29/2021 167.64 cm 20.6 kg/m2 90062.1 g 98 [degF] 108/66 mm[Hg] Yesica [facility] 2 12:16:41 Date Recorded Body height Body mass index (BMI) Body weight Body temperature Systolic And Diastolic Provider Name and Address Organization Details Last Updated DateTime 09/19/2021 167.64 cm 21 kg/m2 71661.0 1 g 98 [degF] 110/70 mm[Hg] Yesica [facility] 2 09:23:14 Date Recorded Body height Body mass index (BMI) Body weight Body temperature Systolic And Diastolic Provider Name and Address Organization Details Last Updated DateTime 10/17/2021 167.64 cm 20.3 kg/m2 24660.6 4 g 97.8 [degF] 124/70 mm[Hg] [facility] 2 09:25:39 Date Recorded Body mass index (BMI) Body weight Systolic And Diastolic Provider Name and Address Organization Details Last Updated DateTime 12/21/2021 20.8 kg/m2 56147.98 g 120/70 mm[Hg] Yesica Joyner [facility] 12/21/2021 13:58:40 Date Recorded Body height Provider Name an d Address Organization Details Last Updated DateTime 12/21/2021 167.64 cm Karyn Wallis [employer] [facility] 12/21/2021 13:51:26 Social History Question Answer Notes LastModified by Organizat ion Details LastModified Time Tobacco Smoking Status Current Some Day Smoker Saloni Kasi hannah, [facility] 08/16/2021 14:53:11 Are You Blind Or Do You Have Difficulty Seeing? No [email or web address] Information not available 08/16/2021 Are You Deaf Or Do You Have Serious Difficulty Hearing? No [email or web address] Information not available 08/16/2021 What Type Of Diet Are You Following? REGULAR [email or web address] Information not available 10/17/2021 How Many Children Do You Have? 1 [email or web address] Information not available 08/16/2021 What Is Your Relationship Status? Single [email or web address] Information not available 08/16/2021 Are You Sexually Active? Yes [email or web address] Information not available 08/16/2021 Sex: Unknown Functional Status Question Answer Note LastModified by Organizat ion Details LastModified Time Do you use any illicit or recreational drugs? No [email or web address] Information not available 08/16/2021 What is your level of alcohol consumption? None [email or web address] Information not available 10/17/2021 Are you currently employed? 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 Family History Relationship Description Onset Age of this Age Resolved Age Notes LastModified by Organization Details LastModified Time Maternal Grandmother Hyperlipidem ia [email or web address] Not available 08/16 14:47:38 Unspecified Relation Mitral valve prolapse [email or web address] Not available 08/16 14:48:33 Notes:biological mat gm [...] quadrivalent, PF 07/21/2021 completed Mara Borges MD [facility] [place], [address], [facility] 09/18/2021 14:50:21 Past Encounters Encounter ID Performer Location Encounter Start Date Encounter Closed Date Diagnosis/Indication Diagnosis SNOMED-CT Code Diagnosis ICD10 Code Diagnosis Note [id number] Abhi Darby MD [facility] [address] [place] [address] 08/22/2021 09:57:11 08/22/2021 11:22:34 Menometrorrhagia 996313020 N92.1 COUNSELING was provided today regarding the [...] estrogen Anemia due to chronic blood loss 040188247 D50.0 Secondary dysmenorrhea 23166288 N94.5 she was cleard by hospitalis t to have surgery [id number] Mara Borges MD [address] [address] 08/29/2021 11:28:55 08/30/2021 11:55:38 Menometrorrhagia 714291279 N92.1 Discussed options for treatment of symptoms. [...] 2 weeks and 6 weeks postoperat mookie. [id number] Mara Borges MD [address] [address] 09/19/2021 09:18:34 09/19/2021 11:39:40 Postoperative visit 239399511 Z09 Discussed postoperat mookie pathology with patient. Reviewed Surgical findings. Patient instructed to maintain strict pelvic rest and no heavy lifting greater than 20 lbs. She was instructed to return for a second postoperat mookie visit in 4 weeks to evaluated the vaginal cuff. All of her questions were answered. [id number] Mara Borges MD [address] [address] 10/17/2021 09:22:51 10/17/2021 09:54:59 Postoperative visit 640047390 Z09 Routine post operative care. May return to normal activities . Discussed careful return to vaginal intercours e. Reviewed Pathology findings with the patient. All questions answered to fullest extent. Follow up per routine GRINDING OPERATOR care. Pain of scar 974405666 L 90.5 From previous c/s. Send to PT. Discussed trigger point injection with steroids/a nesthetic if PT does not help. [id number] Mara Borges MD [facility] [address] [place] [address] 12/21/2021 13:46:29 12/21/2021 14:24:52 Depressive disorder 11852790 F32.1 Refill until psychiatry appointmen t 04/2022 Tinea corporis 21037028 B35.4 Health Concerns Section Related Observation LastModified by Organization Detai ls LastModified Time None Recorded Concern Status LastModified by Organization Details LastModified Time None Recorded Advance Directives Directive None Recorded Payers Insurance Date Sequence Insurance Name Policy Number Policy Maki Covered Member ID Maki Member ID Guarantor Name 08/23/2021 2 [place] [employer] Steffanie Ruvalcaba [id number] Steffanie Ruvalcaba 01/18/2022 2 [facility] - DOS ON OR AFTER 21 (MEDICAID REPLACEMENT - HMO) Steffanie Ruvalcaba [id number] Steffanie Ruvalcaba 08/22/2021 2 [facility] (MEDICAID REPLACEMENT - HMO) Steffanie Ruvalcaba [id number] Steffanie Ruvalcaba 01/18/2022 1 [facility] [id number] Steffanie Ruvalcaba [id number] Steffanie Ruvalcaba Notes Date Note Type Note [...] bleeding / clotting issues Abhi Darby MD [address] [place], [address], [facility] 08/22/2021 11:22:20 08/29/2021 text/html Pre-Op OBGYN HPIReported bypatient.Surgery to be Performed:Robotic TLH / BSO / Cysto on 09/06/2021 Steffanie here for pre op visit Mara Borges MD [address] [place] [address], [address], [facility] 08/30/2021 19:26:41 09/19/2021 text/html Post-OpReported bypatient.Onset/Timin g:date of surgery: (09/06/2021) Quality:procedure: (Robotic TLH) Associated Symptoms:incision healing well; normal appetite; normal bowel function; no constipation; no fever; no bleeding; no lower extremity edema/pain;nausea;saima n Steffanie here for 2 week post op visit Mara Borges MD [address] [place] [address], [address], [facility] [facility] 09/19/2021 09:44:53 10/17/2021 text/html Post-OpReported bypatient.Onset/Timin [...] 6 week post op Mara Borges MD [address] [place] [address], [phone], [facility] [employer] [facility] 10/17/2021 09:54:49 12/21/2021 text/html Steffanie here due to abdominal discomfort , had Robotic hysterectomy 09/2021 incision spot that red and sore and painful which is the abdominal discomfort, also new PCP wont refill Wellbutrin due to originally ordered by GRINDING OPERATOR doctor asking if can get refilled she has been off for 3 weeks and fisher is not good. Told needed to sign hysterectomy papers. Mara Borges MD [address] [place] [address], [phone], [facility] 01/13/2022 09:35:53 OBGyn Episode No OBEpisode recorded.
--- OUTSIDE RECORDS SUMMARY | 2025-01-28 13:08 | XMS_ITS | Encounter Summary ---
Author Organization [facility] Address [facility] [place] [address] Care Team Providers Care Installment Loan Collector Name Role Phone Kelsie Jeffries MD Primary Care Provider [phone] Angela Dos Santos PA-C Primary Care Provider [phone] Encounter Details Date Type Department Care Team (Late st Contact Info) Description 09/06/2021 Prep for Procedure [facility] Pre-Admission [facility] [place] [address] Mara Borges MD [address] [place] [address] Social History Tobacco Use Types [...] Coronavirus/COVID-19? No / Unsure 09/06/2021 5:17 AM IOS SOFTWARE ENGINEER documented as of this encounter Functional Status * RETIRED Are you deaf or do you have serious difficulty hearing Answer Date of Assessment Author Status No 07/21/2021 5:40 PM IOS SOFTWARE ENGINEER Activ e * RETIRED Are you blind or do you have serious difficulty seeing, even when wearing glasses? Answer Date of Assessment Author Status No 07/21/2021 5:40 PM IOS SOFTWARE ENGINEER Activ e * Do you have serious difficulty walking or climbing stairs? Answer Date of Assessment Author Status No 07/21/2021 5:40 PM IOS SOFTWARE ENGINEER Chloe Guerra S, R N Active * Do you have difficulty dressing or bathing? Answer Date of Assessment Author Status No 07/21/2021 5:40 PM IOS SOFTWARE ENGINEER Chloe Guerra S, R N Active * Because of a physical, mental, or emotional condition, do you have difficulty doing errands alone such as visiting a doctor's office or shopping? Answer Date of Assessment Author Status No 07/21/2021 5:40 PM IOS SOFTWARE ENGINEER Chloe Guerra S, R N Active * Calculated C-SSRS Risk Score (Lifetime/Recent) Answer Date of Assessment Author Status No Risk Indicated 09/06/2021 6:00 AM IOS SOFTWARE ENGINEER Francesca Baumann RN Active * [place] Suicide Severity Rating Scale (Screener/Recent Self-Report) Question [...] Date Author Status No 07/21/2021 5:40 PM IOS SOFTWARE ENGINEER Chloe Guerra R N Active documented in this encounter Plan of Treatment Not on file documented as of this encounter Goals Goal Patient Goal Type Associated Problems Recent Progress Patient-Stated? Author Health - patient able to perform ADLs independently General No Evangelina Jenkins RN documented as of this encounter Results * (ABNORMAL) CBC W/DIFF AUTOMATED (09/04/2021 9:25 AM IOS SOFTWARE ENGINEER) [facility] WBC 9.2 4.5 - 11.0 x10'3/uL 09/04/2021 10:[address] [facility] RBC 3.64(L) 4.20 - 5.40 x10'6/uL 09/04/2021 10:[address] [facility] HGB 10.9(L) 12.0 - 16.0 G/DL 09/04/2021 10:[address] [facility] HCT 34.1(L) 38.0 - 48.0 % 09/04/2021 10:[address] [facility] MCV 93.7 81.0 - 99.0 FL 09/04/2021 10:[address] [facility] MCH 29.9 27.0 - 31.0 PG 09/04/2021 10:[address] [facility] MCHC 32.0 32.0 - 36.0 G/DL 09/04/2021 10:[address] [facility] RDW 14.8(H) 11.5 - 14.5 % 09/04/2021 10:[address] [facility] PLT 467(H) 130 - 400 x10'3/uL 09/04/2021 10:[address] [facility] MPV 10.1 9.3 - 12.2 FL 09/04/2021 10:[address] [facility] DIFFERENTIAL TYPE AUTOMATED DIFFERENTIAL 09/04/2021 10:57 AM IOS SOFTWARE ENGINEER [facility] NEUTROPHILS % 62.4 % 09/04/2021 10:[address] [facility] LYMPHOCYTES % 27.9 % 09/04/2021 10:[address] [facility] MONOCYTES % 7.8 % 09/04/2021 10:[address] [facility] EOSINOPHILS 0.8 % 09/04/2021 10:[address] [facility] BASOPHILS 0.8 % 09/04/2021 10:[address] [facility] IMMATURE GRANS % 0.3 % 09/04/19 10:[address] [facility] ABS. NEUTROPHILS TOTAL 5.72 1.80 - 7.70 x10'3/uL 09/04/2021 10:[address] [facility] ABS. LYMPHOCYTES 2.56 1.00 - 4.80 x10'3/uL 09/04/2021 10:[address] [facility] ABS. MONOCYTES 0.71 0.24 - 0.86 x10'3/uL 09/04/2021 10:[address] [facility] ABS. EOSINOPHILS 0.07 0.04 - 0.36 x10'3/uL 09/04/2021 10:[address] [facility] ABS. BASOPHILS 0.07 0.01 - 0.08 x10'3/uL 09/04/2021 10:[address] [facility] ABS. IMMATURE GRANULOCYTES 0.03 0.00 - 0.49 x10'3/uL 09/04/2021 10:[address] [facility] 09/04/2021 9:25 AM IOS SOFTWARE ENGINEER us Mara Borges MD LABORATORY Final Result [facility] [address] [place] [address], * TYPE & SCREEN (09/04/2021 9:25 AM IOS SOFTWARE ENGINEER) ABO/RH A POSITIVE 09/04/2021 11:01 AM IOS SOFTWARE ENGINEER [facility] ANTIBODY SCREEN NEGATIVE 09/04/2021 11:01 AM IOS SOFTWARE ENGINEER [facility] SAMPLE EXPIRATION 09/09/2021,2 359 09/06/2021 6:38 AM IOS SOFTWARE ENGINEER [facility] COMMENT NO HISTORY OF TRANSFUSIONS , OR ANTIBODIES, NEW SPECIMEN NOT NEEDED 09/06/2021 6:38 AM IOS SOFTWARE ENGINEER [facility] 09/04/2021 9:25 AM IOS SOFTWARE ENGINEER Result [facility] Mara Borges MD BLOOD BANK TEST ORDERABLES Final Result Performing Organization Address [facility] Co de Phone Number [facility] [address] [place] [address], * CORONAVIRUS (COVID-19) ANTIGEN (In-house Ivy) (09/04/2021 9:00 AM IOS SOFTWARE ENGINEER) Pathologist [facility] CORONAVIRUS ANTIGEN IA NEGATIVE NEGATIVE 09/04/2021 10:17 AM IOS SOFTWARE ENGINEER [facility] Comment: NEGATIVE RESULTS SHOULD BE [...] LABORATORIES. SPECIMEN TYPE NASAL 09/04/2021 9:49 AM IOS SOFTWARE ENGINEER [facility] FIRST TEST NO 09/04/2021 9:49 AM IOS SOFTWARE ENGINEER [facility] EMPLOYED IN HEALTHCARE NO 09/04/2021 9:49 AM IOS SOFTWARE ENGINEER [facility] SYMPTOMATIC DEFINED BY CDC NO 09/04/2021 9:49 AM IOS SOFTWARE ENGINEER [facility] HOSPITALIZATION STATUS NO 09/04/2021 9:49 AM IOS SOFTWARE ENGINEER [facility] PATIENT IN ICU NO 09/04/2021 9:49 AM IOS SOFTWARE ENGINEER [facility] RESIDENT OF [facility] CARE NO 09/04/2021 9:49 AM IOS SOFTWARE ENGINEER [facility] NOT 09/04/2021 9:49 AM IOS SOFTWARE ENGINEER [facility] Specimen from nose (specimen) NASAL STRUCTURE / Unknown 09/04/2021 9:00 AM IOS SOFTWARE ENGINEER us Mara Borges MD MICROBIOLOGY - GENERAL ORDERABLE S Final Result [facility] [address] [place] [address], documented in this encounter Visit Diagnoses Diagnosis Preoperative testing- Primary Preoperative examination, unspecified documented in this encounter Additional Health Concerns Infection Onset Date Last Indicated Resolved Time COVID-19 Rule Out 11/10/2021 11/10/2021 11/10/2021 7:05 PM CDT MRSA Comment:02/20/22 nares (SB) 02/20/2022 02/20/2022 documented as of this encounter Care Teams Installment Loan Collector Relationship Specialty Start Date End Date Kelsei Jeffries MD [facility] [place] [address] PCP - General FAMILY PRACTICE 07/14/20 02/06/22 Angela Dos Santos, PA-C . [facility] [address] [place] [id number] PCP - General PHYSICIAN REHAB NURSING TECH 02/07/22 documented as of this encounter
--- OUTSIDE RECORDS SUMMARY | 2025-01-28 13:09 | XMS_ITS | Clinical Summary ---
Author Organization [facility] [address] [facility] Address [address] [place] [address] Care Team Providers Care Director Of Strategic Communications Name Role Phone Alfie Cervantes MD Primary Care Provider [phone] Angela Dos Santos PA Unavailable [phone] Helen Calabrese NP Unavailable [phone] Allergies Active Allergy Reactions Criticality Noted [...] (11/30/2024): Added automatically from request for surgery [id number] Menometrorrhagia 09/05/2021 S/P hysterectomy 09/05/2021 Anemia, deficiency 08/27/2021 Acute pancreatitis without n ecrosis or infection, unspecified 07/13/2020 PTSD (post-traumatic stress disorder) 09/12/2009 PMDD (premenstrual dysphoric disorder) 4 Encounters Date Type Department Care Team Description 11/30/2024 8:30 AM CDT Office Visit [facility] Care at [address] [phone] Jenelle Oglesby NP Encounter for staple removal (Primary Dx) 11/25/2024 11:00 AM CDT Office Visit [facility] Hand Surgery [address] [place] [phone] Salbador Leblanc MD Closed fracture of proximal phalanx of digit of right hand with routine healing, subsequent encounter (Primary Dx) 11/25/2024 10:34 AM CDT - 11/25/2024 11:59 PM CDT Hospital Encounter [facility] [address] [place] [id number] Closed fracture of proximal phalanx of digit of right hand with routine healing, subsequent encounter Discharge Disposition: Discharge to home or self care 11/24/2024 12:32 AM CDT - 11/24/2024 1:43 AM CDT Emergency [facility] [place] [facility] [address] [place] [phone] Scalp laceration, initial encounter (Primary Dx); Fall, initial encounter; Neck pain Discharge Disposition: Discharge to home or self care 11/04/2024 10:00 AM CDT Ancillary Procedure [facility] [address] [place] [phone] 11/04/2024 9:30 AM CDT Office Visit [facility] Hand Surgery [address] [facility] [address] [place] [phone] Salbador Leblanc MD Injury of finger of right hand, [...] Former Cigarettes Tobacco Cessation:Counseling Given: Not Answered [facility] Utilities Answer Date Recorded In the [...] often do you attend chur ch or amish services? Never 10/07/2023 Do you belong to any clubs o r organizations such as orthodoxy groups, unions, fraternal or athletic groups, or [...] place to sleep or slept in a retirement (including now)? No 10/07/2023 Personal Safety Answer Date Recorded Have you ever been in or are you currently in a harmful physical or emotional relationship or is someone making you feel afraid or unsafe? Denies 11/23/2024 Comments No Sex and Gender Information Value Date Recorded Sex Assigned at Not on file Legal Sex Female 9:46 AM WASTEWATER TECHNICIAN Gender Identity Female 08/08/2023 12:53 AM WASTEWATER TECHNICIAN Sexual Orientation Straight 08/08/2023 12 :53 AM WASTEWATER TECHNICIAN Obstetrics History Last Filed Vital Signs Vital [...] Procedure Name Priority Date/Time Associated Diagnosis Comments OK REMOVAL SUTURES/TYLER NOT REQUIRING ANESTHESIA Routine 11/30/2024 [...] encounter from Last 3 Months Results * OK REMOVAL SUTURES/TYLER NOT REQUIRING ANESTHESIA (11/30/2024 8:54 AM CDT) Narrative OglesbyJenelle pandey NP - 11/30/2024 8:54 AM CDT Jenelle [...] details: Scalp Procedure details: Wound appearance: Clean [place] removed: Yes [place] removed: 5 Suture and/or tyler initally placed [...] signed by Salbador SHARMA T: Report ID: [id number] Reading Location: [place] [address] Procedure Note Salbador Leblanc MD - 12/09/2024 EXAM DESCRIPTION: XR HAND [...] signed by Salbador SHARMA T: Report ID: [id number] Reading Location: [place] [address] Salbador Leblanc MD IMG XR PROCEDURES Final Result * [...] Huy Rosas M.D. KT: MITCHELL Report ID: [id number] Reading Location: [id number] Procedure Note Huy Rosas MD - 11/24/2024 [...] Huy Rosas M.D. KT: MITCHELL Report ID: [id number] Reading Location: [id number] Cassandra Lockhart NP IMG CT PROCEDURES Final [...] Huy Rosas M.D. KT: MITCHELL Report ID: [id number] Reading Location: [place] [address] Procedure Note Huy Rosas MD - 11/23/2024 [...] Huy Rosas M.D. KT: MITCHELL Report ID: [id number] Reading Location: [place] [address] us Rj Stone Jr., MD [facility] CT PROCEDURES Final Result * POCT glucose (11/23/2024 10:20 PM CDT) [facility] Signature Glucose, POC 128 70 - 199 mg/dL Comment:Testing performed by : [facility], [address] [place], [place] [address]., [address] Blood 11/23/2024 10:2 0 PM CDT 11/23/2024 10:20 PM CDT Notinfile Unknown LAB POCT ORDERABLES - DEVICE F inal Result [facility] [address] [facility] Department [place] [address] * XR Hand Right 3 or More Views (11/05/2024 6:26 AM CDT) Anatomical Region Laterality Modality Upper Extremities, Hand Right Computed Radiography Narrative 11/05/2024 6:26 AM CDT AP lateral and oblique x-rays on the mini C arm showed continued visualization of the proximal phalanx fracture with slight signs of healing of the angular fracture, but the fracture line was still visible. Salbador Leblanc MD IMG XR PROCEDURES Final Result from Last 3 Months Insurance [facility] Advance Directives For more information, please contact: [phone] * Full Code (Latest Code Status on File) Date Activated Date Inactivated Comments 10/06/2023 8:48 PM 10/09/2023 7:15 PM Care Teams Director Of Strategic Communications Relationship Specialty Start Date End Date Alfie Cervantes MD [address] [address] PCP - General Gastroenterology 06/05/22 Angela Dos Santos PA [address] [place] [address] Physician Collar Shaper Operator 06/05/22 Helen Calabrese NP [facility] [place] [address] Nurse Practitioner Family Practice 10/09/23
--- OUTSIDE RECORDS SUMMARY | 2025-01-28 13:09 | XMS_ITS | Clinical Summary ---
Author Organization [facility] Care Team Providers Care Gas Engine Mechanic Name Role Phone Unavailable Primary Care Provider Unavailabl e Social History Tobacco Use Types Packs/Day Years Used Date Smoking Tobacco: Never Assessed Comments Unknown Sex and Gender Information Value Date Recorded Sex Assigned at Not on file Legal Sex Female 9:45 AM ENTERTAINMENT DIRECTOR Gender Identity Not on file Sexual Orientation [...]
--- OUTSIDE RECORDS SUMMARY | 2025-01-28 13:09 | XMS_ITS | Clinical Summary ---
Author Organization [facility] Address [facility] [place] [address] Care Team Providers Care Field Ironworker Name Role Phone Angela Dos Santos PA-C Primary Care Provider [phone] Allergies Active Allergy Reactions Criticality Noted Date [...] a day. Active vitamin D2, ergocalciferol, (DRISDOL) 85284 UNITS capsule Take 1 capsule (50,000 Units total) by mouth every 7 days. Fridays Active CREON [address] units capsuleIndications :Chronic pancreatitis, unspecified pancreatitis type [...] Date Diagnosed Date Acute on chronic pancreatitis ([facility]/HCC HHS/HCC) 07/23/2023 Pancreatitis, necrotizing ([facility]) 02/11/2022 Acute pancreatitis ([facility]) 02/10/2022 Diarrhea, unspecified type 10/23/2021 Overview (10/23/2021): Added automatically from request for surgery [id number] Family history of pancreatitis 10/23/2021 Overview (10/23/2021): Added automatically from request for surgery [id number] Menometrorrhagia 09/06/2021 S/P hysterectomy 09/06/2021 Hypertriglyceridemia 07/20/2021 Pancreatitis ([facility]) 07/14/2020 PTSD (post-traumatic stress disorder) 09/12/2009 PMDD [...] 0.6 oz pu re alcohol) 3x's/week -beer [employer] Answer Date Recorded In the past 12 months has Hats[employer], gas, oil, or water [employer] threatened to shut off services in your [...] place to sleep or slept in a custodial (including now)? No 07/23/2023 Housing Stability Vital [...] Comments Blood Pressure 118/81 07/27/2023 12:12 PM GOLF RANGE ATTENDANT Pulse 70 07/27/2023 12:12 PM GOLF RANGE ATTENDANT Temperature 36.1 C (97 F) 07/27/2023 12:12 PM GOLF RANGE ATTENDANT Respiratory Rate 16 07/27/2023 12:12 PM GOLF RANGE ATTENDANT Oxygen Saturation 100% 07/27/2023 12:12 PM GOLF RANGE ATTENDANT Inhaled Oxygen Concentration - - Weight 66 kg (145 lb 8.1 oz) 07/27/2023 3:30 AM GOLF RANGE ATTENDANT Height 167.6 cm (5' 5.98) 07/23/2023 6:44 PM CS T Body Mass Index 23.5 07/23/2023 6:44 PM GOLF RANGE ATTENDANT Plan of Treatment Health Maintenance Due Date Last Done Comments Annual Physical 11/18/1982 Hepatitis C 11/18/1997 DTaP, Tdap and Td Vaccines ( 1 - Tdap) 11/18/1998 Hepatitis B Vaccines (1 of 3 - 19+ 3-dose series) 11/18/1998 Mammogram Screening 2019 COVID-19 Vaccine ( - 2023-2 5 season) 2024 PHQ-2 (Physician Rosebud) 07/15/2024 Colorectal Cancer Screening Colonoscopy (10 Years) [...] home upon discharge Lifestyle No Meeta Pickens, pediatric nephrologist - family caregiver with be involved in care transitions and discharge planning Lifestyle No Karma García, JUTE BAG CUTTING MACHINE OPERATOR Additional Health Concerns Infection Onset Date Last Indicated MRSA Comment:02/20/22 citlaly (SB) 02/20/2022 02/20/2022 Insurance [facility] Advance Directives Documents on File Type Date Recorded Patient Instrument Assembly Supervisor Expl anation Advance Directives and Livin g Will 02/12/2022 1:12 PM [facility] * Full Code (Latest Code [...] 9:21 PM 05/09/2022 2:58 PM Care Teams Field Ironworker Relationship Specialty Start Date End Date Angela Dos Santos PA-C PCP - General PHYSICIAN SENIOR COURT OFFICE ASSISTANT 02/07/22
--- OUTSIDE RECORDS SUMMARY | 2025-01-28 13:09 | XMS_ITS | Referral Summary ---
Author Organization [facility] [address] [facility] Address [address] [place] [address] Care Team Providers Care Shop Foreman Name Role Phone Alfie Cervantes MD Primary Care Provider [phone] Angela Dso Santos PA Unavailable [phone] Helen Calabrese NP Unavailable [phone] Encounters Date Type Department Care Team Description 11/30/2024 8:30 AM CDT Office Visit [facility] Care at [address] [phone] Jenelle Oglesby NP Encounter for staple removal (Primary Dx) 11/25/2024 10:34 AM CDT - 11/25/2024 11:59 PM CDT Hospital Encounter [facility] Diag Imaging [address] [place] [address] Closed fracture of proximal phalanx of digit of right hand with routine healing, subsequent encounter Discharge Disposition: Discharge to home or self care 11/25/2024 11:00 AM CDT Office Visit [facility] Medical [facility] Hand Surgery [address] [place] [address] [address] [place] [phone] Salbador Hartley MD Closed fracture of proximal phalanx of digit of right hand with routine healing, subsequent encounter (Primary Dx) 11/24/2024 12:32 AM CDT - 11/24/2024 1:43 AM CDT Emergency [facility] Emergency Department [address] [place] [address] Scalp laceration, initial encounter (Primary Dx); Fall, initial encounter; Neck pain Discharge Disposition: Discharge to home or self care 11/04/2024 10:00 AM CDT Ancillary Procedure [facility] Hand Surgery [address] [place] [address] [place] [phone] 11/04/2024 9:30 AM CDT Office Visit [facility] Hand Surgery [address] [place] [address] [place] [phone] Salbador Hartley MD Injury of finger of [...] (11/30/2024): Added automatically from request for surgery [id number] Menometrorrhagia 09/05/2021 S/P hysterectomy 09/05/2021 Anemia, deficiency 08/27/2021 Acute pancreatitis without n ecrosis or infection, unspecified 07/13/2020 PTSD (post-traumatic stress disorder) 09/12/2009 PMDD (premenstrual dysphoric disorder) 4 Social History Tobacco Use Types Packs/Day Years Used Date Smoking Tobacco: Former Cigarettes Tobacco Cessation:Counseling Given: Not Answered [facility] Utilities Answer Date Recorded In the [...] often do you attend chur ch or anglican services? Never 10/07/2023 Do you belong to any clubs o r organizations such as voodoo groups, unions, fraternal or athletic groups, or [...] place to sleep or slept in a intermediate (including now)? No 10/07/2023 Personal Safety Answer Date Recorded Have you ever been in or are you currently in a harmful physical or emotional relationship or is someone making you feel afraid or unsafe? Denies 11/23/2024 Comments No Sex and Gender Information Value Date Recorded Sex Assigned at Not on file Legal Sex Female 9:46 AM CLOTH STOCK SORTER Gender Identity Female 08/08/2023 12:53 AM CLOTH STOCK SORTER Sexual Orientation Straight 08/08/2023 12 :53 AM CLOTH STOCK SORTER Last Filed Vital Signs Vital Sign Reading [...] Procedure Name Priority Date/Time Associated Diagnosis Comments DC REMOVAL SUTURES/TYLER NOT REQUIRING ANESTHESIA Routine 11/30/2024 [...] encounter from Last 3 Months Results * DC REMOVAL SUTURES/TYLER NOT REQUIRING ANESTHESIA (11/30/2024 8:54 [...] details: Wound appearance: Clean Tyler removed: Yes Tyler removed: 5 Suture and/or tyler initally placed by: Not myself or within my group Post-removal: Antibiotic ointment applied patient tolerated the procedure well with no immediate complications us Jenelle Oglesby OUTSIDE COLLECTOR IN CLINIC/BEDSIDE ORDERABL ES Final Result * [...] by Salbador Hartley TL T: Report ID: [id number] Reading Location: [place] [address] Procedure Note Salbador Hartley MD - 12/09/2024 [...] by Salbador Hartley TL T: Report ID: [id number] Reading Location: [place] [address] us Salbador Hartley MD IMG XR PROCEDURES [...] Huy Rosas M.D. KT: KT Report ID: [id number] Reading Location: [id number] Procedure Note Huy Rosas MD - 11/24/2024 [...] Huy Rosas M.D. KT: MITCHELL Report ID: [id number] Reading Location: [place] [address] Cassandra Lockhart NP IMG CT PROCEDURES Final [...] Huy Rosas M.D. KT: KT Report ID: [id number] Reading Location: [id number] Procedure Note Huy Rosas MD - 11/23/2024 [...] Huy Rosas M.D. KT: MITCHELL Report ID: [id number] Reading Location: [place] [address] us Rj Stone Jr., MD IMG CT PROCEDURES Final Result * POCT glucose (11/23/2024 10:20 PM CDT) [facility] Signature Glucose, POC 128 70 - 199 mg/dL Comment:Testing performed by : [facility], [address] [place] [address]., [address] Blood 11/23/2024 10:2 0 PM CDT 11/23/2024 10:20 PM CDT Notinfile Unknown LAB POCT ORDERABLES - DEVICE F inal Result [facility] [address] [facility] Department [place] [address] * XR Hand Right 3 [...] Final Result from Last 3 Months Insurance [facility] Member Subscriber Plan / Payer (Ef fective 2022-Present) Name:Steffanie Ruvalcaba Relation to Subscriber:Self Name:Steffanie Ruvalcaba Payer ID:[id number] (NAIC) Group ID:Not on file Type:MEDICAID RISK OTHER Address: ATTN: CLAIMS DEPT [address] [facility] [place] [id number] Advance Directives For more information, please contact: [phone] * Full Code (Latest Code Status on File) Date Activated Date Inactivated Comments 10/06/2023 8:48 PM 10/09/2023 7:15 PM Care Teams Shop Foreman Relationship Specialty Start Date End Date Alfie Cervantes MD [address] [address] PCP - General Gastroenterology 06/05/22 Angela Dos Santos PA [address] [place] [address] Physician Night Clerk Auditor 06/05/22 Helen Calabrese, OUTSIDE COLLECTOR [address] [place] [address] JOSE MERLOS [id number] Nurse Practitioner Family Practice 10/09/23
[2025-01-28 13:10] LABS: Alanine Aminotransferase 29 U/L (6-35); Albumin Level 4.8 g/dL (3.5-5.1); Alkaline Phosphatase 56 U/L (38-126); Anion Gap 11 mmol/L (4-12); Aspartate Amino Transferase 40 U/L (14-36); Bilirubin,Total 0.9 mg/dL (0.2-1.3); Blood Urea Nitrogen 11 mg/dL (7-17); Calcium 9.2 mg/dL (8.4-10.2); Carbon Dioxide 24 mmol/L (22-30); Chloride 99 mmol/L (98-107); Estimated Glomerular Filt Rate > 60; Glucose 115 mg/dL (65-110); Lipase 140 U/L (23-300); Potassium 3.7 mmol/L (3.4-5.0); Sodium 134 mmol/L (137-145); Total Protein 8.5 g/dL (6.3-8.2)
--- NOTE | 2025-01-28 13:50 | ECG_ITS ---
Test Date: 2025-01-28 14:29:39 Measurements Intervals Parks Rate: 67 P: 54 NV: 177 QRS: 21 QRSD: 94 T: 46 QT: 418 QTc: 443 Interpretive Statements SINUS RHYTHM Compared to ECG 01/15/2025 00:04:47 No significant changes Electronically Signed On 01-28-2025 14:51:37 CDT by Ryan Yost M.D.
--- NOTE | 2025-01-28 14:17 | ED_ITS ---
HPI - Abdominal Pain General Chief Complaint: Abdominal Pain Stated Complaint: Abd Pain Source: patient Mode of arrival: EMS Limitations: no limitations History of Present Illness HPI narrative: Patient is a 44-year-old female who presents the ED via EMS with report of epigastric abdominal pain. Patient reports history of chronic pancreatitis. She was reports family history of this and pre disposition to elevated cholesterol which has caused her pancreatitis in the past. She denies frequent alcohol use, though was seen in our facility on 01/15 and was intoxicated at that time. Patient reports having persistent pain throughout her epigastric region, right upper quadrant, radiating through to her back since Saturday night. Reports nausea, vomiting, difficulty keeping down food and drink. States this feels similar to her previous episodes of pancreatitis. Denies fevers, diarrhea, constipation, chest pain, shortness of breath Related Data Home Medications ?Medication ?Instructions ?Recorded ?Confirmed ?Last Taken ?Type bupropion HCl 150 mg 24 hr tablet, 150 mg PO QAM 08/24/19 08/24/19 Unknown History extended release (Wellbutrin XL) bupropion HCl 75 mg tablet 75 mg PO BID 08/24/19 08/24/19 Unknown History fenofibrate 160 mg tablet 160 mg PO DAILY 08/24/19 08/24/19 Unknown History Allergies Allergy/AdvReac Type Severity Reaction Status Date / Time latex Allergy Rash Verified 08/24/19 11:26 Penicillins Allergy Hives Verified 08/24/19 11:23 Review of Systems 2 Review of Systems: All systems reviewed & are unremarkable except as noted in HPI. All systems reviewed & are unremarkable except as noted in HPI and below Exam 2 Narrative: GENERAL: Well appearing, well-nourished, non-toxic, in no acute distress. HEAD: Normocephalic, atraumatic. RESPIRATORY: Airway patent, respirations nonlabored. Clear to auscultation bilaterally, no rales, rhonchi, wheezing. CARDIOVASCULAR: Regular rate and rhythm without murmurs, rubs, or gallops. ABDOMINAL: Soft, diffuse tenderness throughout upper abdomen, nondistended. Normoactive BS. Normal peripheral pulses. MUSCULOSKELETAL: Moves all extremities. No gross deformities. SKIN: Warm, dry, normal color. NEURO: A&O X3. Speech clear. No ataxic movements. PSYCHIATRIC: Appropriate mood and affect. Normal interaction. Course Vital Signs Vital signs: Vital Signs Temperature 97.9 F 01/28/25 12:26 Pulse Rate 69 01/28/25 12:26 Respiratory Rate 16 01/28/25 12:26 Blood Pressure 163/89 H 01/28/25 12:26 Pulse Oximetry 100 01/28/25 12:26 Oxygen Delivery Room Air 01/28/25 12:26 Temperature 97.8 F 01/28/25 12:50 Pulse Rate 68 01/28/25 12:50 Respiratory Rate 16 01/28/25 12:50 Blood Pressure 166/87 H 01/28/25 12:50 Pulse Oximetry 98 01/28/25 12:50 Oxygen Delivery Room Air 01/28/25 12:26 MDM - Abdominal Pain MDM Narrative Medical decision making narrative: Patient presented to ED with several day history of epigastric/upper abdominal pain, nausea, vomiting. History of chronic pancreatitis. Vital signs are stable upon arrival. Patient in no acute distress. Laboratory studies with mild leukocytosis of 12.1. Neutrophil predominance. No bandemia. CMP is fairly unremarkable. Stable electrolytes. Stable kidney function. LFTs are normal. Lipase is 140. Alcohol level ordered, pending. Triglyceride level WNL. UA with trace ketones, no significant signs of infection. UDS pending. EKG was normal sinus rhythm, no ST changes. Troponin undetectable. CT scan of abdomen/pelvis was obtained, without acute findings, showing chronic pancreatitis. Discussed lab and imaging findings with patient. She is still reporting severe pain, nausea, difficulty keeping down food and drink. Does not feel she will be able to go home. She is prescribed [place] at home and has been trying this over last few days without improvement. She feels this is consistent with an acute flare pancreatitis. Will admit for such and continued hydration, pain control. Discussed case with Karyn TRHASHER hospitalist, accepted patient for admission. Patient in agreement with plan and admission. Medical Records Attestation: I reviewed the patient's medical records. Lab Data Attestation: I reviewed the patient's lab results. 01/28/25 12:38 01/28/25 12:38 Labs: Lab Results 01/28/25 01/28/25 Range/Units 12:36 12:38 WBC 12.1 H (4.5-10.0) K/mm3 RBC 4.07 L (4.2-5.4) M/mm3 Hgb 12.3 (12.0-15.0) g/dL Hct 38.7 (37.0-47.0) % MCV 95.1 (80-100) fl MCH 30.2 (26-34) pg MCHC 31.8 L (32-36) g/dl RDW 13.5 (11.5-14.5) % Plt Count 250 (150-375) k/mm3 MPV 10.2 (7.4-10.4) fl Immature Gran % (Auto) 0.5 (0-0.5) % Neut % (Auto) 83.5 H (45.5-73.1) % Lymph % (Auto) 9.9 L (18.3-44.2) % [place] % (Auto) 5.6 (2.6-8.5) % Eos % (Auto) 0.3 (0-4.4) % Baso % (Auto) 0.2 (0.2-1.2) % Lymph # (Auto) 1.20 (0.9-3.2) K/mm3 [place] # (Auto) 0.7 H (0.1-0.6) K/mm3 Eos # (Auto) 0.0 (0-0.3) K/mm3 Baso # (Auto) 0.0 (0.0-0.1) K/mm3 Abs Immat Gran (auto) 0.06 H (0.00-0.031) K/mm3 Absolute Neuts (auto) 10.1 H (1.3-6.7) K/mm3 Absolute Nucleated RBC 0.000 (0.0-0.012) K/mm3 Nucleated RBC % 0.0 (0.0-0.2) % Sodium 134 L (137-145) mmol/L Potassium 3.7 (3.4-5.0) mmol/L Chloride 99 (98-107) mmol/L Carbon Dioxide 24 (22-30) mmol/L Anion Gap 11 (4-12) mmol/L BUN 11 (7-17) mg/dL Creatinine 0.55 L (0.7-1.0) mg/dL Estim Creat Clear Calc Not Reportable Estimated GFR > 60 (59 - ) Glucose 115 H (65-110) mg/dL Calcium 9.2 (8.4-10.2) mg/dL Total Bilirubin 0.9 (0.2-1.3) mg/dL AST 40 H (14-36) U/L ALT 29 (6-35) U/L Alkaline Phosphatase 56 (38-126) U/L Troponin I < 0.012 (0.000-0.034) ng/mL Total Protein 8.5 H (6.3-8.2) g/dL Albumin 4.8 (3.5-5.1) g/dL Triglycerides 94 (<150) mg/dL Lipase 140 (23-300) U/L Urine Color Yellow (Yellow) Urine Appearance Clear (Clear) Urine pH 6.5 (5.0-9.0) Ur Specific [place] 1.021 (1.001-1.035) Urine Protein Negative (Negative) mg/dL Urine Glucose (UA) Negative (Negative) mg/dL Urine Ketones Trace H (Negative) mg/dL Ur Blood (Man) Negative (Negative) Urine Nitrate Negative (Negative) Urine Bilirubin Negative (Negative) Urine Urobilinogen 1.0 (<2.0) mg/dL Leukocyte Esterase Rfl Trace H (Negative) ZACARIAS/UL Urine RBC 3-5 H (0-2) /hpf Urine WBC 0-5 (0-3) /hpf Ur Squamous Epith Cells None seen (Few) /hpf Urine Bacteria None seen /hpf Urine Casts 0-2 Urine Opiates Screen Pending Urine Methadone Screen Pending Ur Barbiturates Screen Pending Ur Phencyclidine Scrn Pending Ur Amphetamine Screen Pending U Benzodiazepines Scrn Pending Urine Cocaine Screen Pending U Cannabinoids Screen Pending Ethyl Alcohol Pending Imaging Data Attestation: I personally reviewed and interpreted this imaging study as follows: Radiologist's impression: ITS Impressions Abdomen/Pelvis CT 01/28/25 14:51 IMPRESSION: 1. No acute abdominal abnormality. 2: Chronic pancreatitis. ECG Data EKG #1: Attestation: I personally reviewed and interpreted this ECG as follows: ECG completion date: 01/28/25 ECG completion time: 14:29 normal rate (67), sinus rhythm and no ST changes Discharge Plan Discharge Clinical Impression: Acute on chronic pancreatitis Patient Disposition: Still a Patient Condition: Stable Patient Language: Kiswahili Prescriptions: No Action bupropion HCl 75 mg Tablet 75 mg PO BID bupropion HCl [Wellbutrin XL] 150 mg Tablet Extended Release 24 Hr 150 mg PO QAM fenofibrate 160 mg Tablet 160 mg PO DAILY dextromethorphan-guaifenesin [Mucinex DM] 60-1,200 mg tablet extended release 12 hr 1 tablet PO Q12H Qty: 12 0RF methylprednisolone [Medrol (Jan)] 4 mg tablets,dose pack See Rx Instructions .ROUTE .COMPLEX Qty: 21 0RF Rx Instructions: orally per package directions lisinopril-hydrochlorothiazide 20-25 mg tablet 1 tablet PO DAILY Qty: 30 1RF amlodipine 10 mg tablet 10 mg PO DAILY Qty: 30 2RF Follow-up/Referrals: Levon,TEMO Miller [Primary Care Provider] -
[2025-01-28 14:26] LABS: Triglycerides 94 mg/dL (<150)
[2025-01-28] MEDS: SODIUM CHLORIDE 0.9% IV 1,000 ML 999 ML IV CONT ×2 (14:32)
[2025-01-28] MEDS: ONDANSETRON INJ 4 MG/2 ML VIAL IV PUSH (14:32)
[2025-01-28] MEDS: MORPHINE SULFATE (*CRX) 4 MG/ML INJ IV PUSH ×2 (14:33→20:24)
[2025-01-28 14:38] LABS: Troponin I < 0.012 ng/mL (0.000-0.034)
[2025-01-28] MEDS: HYDROmorphone HCL INJ (*CRX) 2 MG/ML VIAL 0.5 MG IV PUSH ×2 (17:06→23:00)
[2025-01-28] MEDS: METOCLOPRAMIDE HCL INJ 10 MG/2 ML VIAL IV PUSH (17:07)
[2025-01-28] MEDS: PANTOPRAZOLE SODIUM IV 40 MG VIAL IV PUSH (17:07)
--- NOTE | 2025-01-28 17:15 | P.HP_ITS ---
H&P: HPI History of Present Illness Date/Time: 01/28/25 17:15 Chief Complaint: Abdominal pain Narrative: 44-year-old female with history hyperlipidemia, TBI and pancreatitis presents the hospital with abdominal pain. She denies alcohol use. She endorses nausea and vomiting and unable to eat or drink. Lab work in the ED shows leukocytosis at 12.1, sodium of 134, creatinine of 0.55, AST of 40, cholesterol panel pending, UA with trace leukocyte esterase tox screen and ethanol level pending. Lipase 140. CT abdomen shows chronic pancreatitis. EKG shows sinus rhythm. Review of Systems Review of Systems: 12 systems were reviewed and are negativ e except for as per HPI. [facility] Past Medical History Medical History (Updated 01/28/25 @ 22:31 by Karyn Negrete APRN) Hypertension Hyperlipidemia TBI (traumatic brain injury) Acute on chronic pancreatitis Social History Social History Smoking status: Former smoker Tobacco type: cigarettes Alcohol intake: current Drinks per week: 1 Substance use: current Substance use type: marijuana Last use: 01/27/2025 Do You Feel Safe in your Home?: Yes Lack of Transportation: YES Lack of Food: Never True Current Housing: I Do Not Have Housing Concerned About Future Housing: YES Difficulty Paying Gas/Electric Bills: YES Difficulty Paying for Meds: No Currently Unemployed: No Education: Associate Degree Difficulty w/ Childcare or Family Care: No Spiritual care concerns: No Meds Home Medications and Allergies Home Medications ?Medication ?Instructions ?Recorded ?Confirmed ?Type bupropion HCl 150 mg 24 hr tablet, 150 mg PO BID 08/24/19 01/28/25 History extended release (Wellbutrin XL) fenofibrate 160 mg tablet 160 mg PO DAILY 08/24/19 01/28/25 History lisinopril 20 1 tablet PO DAILY #30 tabs 01/05/20 01/28/25 Rx mg-hydrochlorothiazide 25 mg tablet albuterol sulfate 90 mcg/actuation 2 puff inhalation BID PRN 01/28/25 01/28/25 History aerosol inhaler shortness of breath or wheezing ergocalciferol (vitamin D2) 1,250 50,000 unit PO WEEKLY 01/28/25 01/28/25 History mcg (50,000 unit) capsule hydroxyzine HCl 50 mg tablet 50 mg PO BID 01/28/25 01/28/25 History rivaroxaban 20 mg tablet (Xarelto) 20 mg PO DAILY 01/28/25 01/28/25 History Allergies Allergy/AdvReac Type Severity Reaction Status Date / Time fluoxetine (From Prozac) Allergy Mild Hives Verified 01/28/25 19:21 Gadolinium-Containing Allergy Mild Sneezing Verified 01/28/25 19:21 Contrast Medi latex Allergy Rash Verified 01/28/25 19:21 Penicillins Allergy Hives Verified 01/28/25 19:21 Vital Signs Vital Signs - 24 hr 01/28/25 12:26 01/28/25 12:50 Temperature 97.9 F 97.8 F Pulse Rate 69 68 Respiratory Rate 16 16 Blood Pressure 163/89 H 166/87 H Pulse Oximetry 100 98 Oxygen Delivery Room Air Exam Narrative: General: well appearing, appears stated age. HEENT: normocephalic, atraumatic. Mucous membranes moist. EOMI, PERRLA, bilateral sclera anicteric, no conjunctival injection. Neck supple without JVD, lymphadenopathy, or bruit. Respiratory: clear to ascultation bilaterally. No rales/rhonic/wheezes. Cardiovascular: Regular rate and rhythm, normal S1-S2 upon ascultation. No murmurs, rubs, or clicks. PMI is nondisplaced, capillary refill less than 3 second. Abdomen: Firm distended, no pulsatile masses, nondistended and nontender. No rebound, no guarding. No CVA tenderness, no hepatosplenomegaly. Bowel sounds present to all four quadrants. No high pitch or tinkling sounds, resonant to percussion. Extremities: No cyanosis, clubbing, or edema present. Pulses are palpable 2/2. Active ROM to all four extremities. Neuro: Alert and orientated x 4. PERRLA. Cranial nerves 2-12 intact without focal deficit. Skin: Warm, dry, and intact, without rash, erythema, or lesion. Psych: pleasant, cooperative, normal speech, normal affect, no hallucinations, no dysarthia H&P: Results Labs Labs: Short CBC 01/28/25 Range/Units 12:38 WBC 12.1 H (4.5-10.0) K/mm3 Hgb 12.3 (12.0-15.0) g/dL Hct 38.7 (37.0-47.0) % Plt Count 250 (150-375) k/mm3 BMP 01/28/25 12:38 Sodium 134 L Potassium 3.7 Chloride 99 Carbon Dioxide 24 BUN 11 Creatinine 0.55 L Glucose 115 H Calcium 9.2 Cardiac Enzymes 01/28/25 Range/Units 12:38 Troponin I < 0.012 (0.000-0.034) ng/mL Liver Function 01/28/25 Range/Units 12:38 Total Bilirubin 0.9 (0.2-1.3) mg/dL AST 40 H (14-36) U/L ALT 29 (6-35) U/L Alkaline Phosphatase 56 (38-126) U/L Albumin 4.8 (3.5-5.1) g/dL Urine 01/28/25 Range/Units 12:38 Urine Color Yellow (Yellow) Urine Appearance Clear (Clear) Urine pH 6.5 (5.0-9.0) Ur Specific [place] 1.021 (1.001-1.035) Urine Protein Negative (Negative) mg/dL Urine Glucose (UA) Negative (Negative) mg/dL Assessment and Plan Assessment and plan (1) Acute on chronic pancreatitis: Code(s): K85.90 - Acute pancreatitis without necrosis or infection, unspecified; K86.1 - Other chronic pancreatitis Status: Acute Assessment and Plan: NPO Lipase level in the morning 2 L bolus followed by IVF Pain management (2) TBI (traumatic brain injury): Code(s): S06.9XAA - Unspecified intracranial injury with loss of consciousness status unknown, initial encounter Status: Acute (3) Anxiety: Code(s): F41.9 - Anxiety disorder, unspecified Status: Acute (4) Hyperlipidemia: Code(s): E78.5 - Hyperlipidemia, unspecified Status: Acute (5) Hypertension: Code(s): I10 - Essential (primary) hypertension Status: Acute Assessment and Plan: Continue lisinopril and hydrochlorothiazide (6) Constipation: Code(s): K59.00 - Constipation, unspecified Status: Acute Assessment and Plan: Patient has large amount of stool in her ascending colon Aggressive bowel protocol Try to limit narcotics as this will make it worse, this could be the source for abdominal pain Quality VTE Prophylaxis VTE prophylaxis: mechanical ordered and pharmacologic ordered Hospitalist MIPS Advance Care Plan I have confirmed that the patient's Advanced Care Plan is present, code status is documented, or surrogate decision maker is listed in patient medical record.: Yes Medication Reconciliation I have utilized all available resources to obtain, update and review the patients current medications (includes all prescriptions, OTC, herbals, cannabis, and nutritional supplements).: Yes
[2025-01-28 18:55] LABS: Cholesterol 197 mg/dL (0-200); HDL Direct 95 mg/dL; Triglycerides 75 mg/dL (<150)
--- NOTE | 2025-01-28 19:18 | ADMGEN ---
This patient, Steffanie Ruvalcaba, was admitted to [facility] Surg Room 331-02. Patient/family oriented to hospital policies and general routines including ID bracelet, bed and alarms, visiting hours, pain management, procedures, bathroom and other care routines, personal items, smoking policy, room service/diet, and visiting hours. Information on how to activate the Rapid Response Team has been discussed. Patient/Family are encouraged to report perceived risks to care and to ask questions if they do not understand what they are told or what they should do.
[2025-01-28] MEDS: SODIUM CHLORIDE 0.9% IV 1,000 ML 150 ML IV CONT (20:47)
[2025-01-28] MEDS: BISACODYL 5 MG TABLET EC PO (23:00)
[2025-01-28] MEDS: KETOROLAC 15 MG/ML VIAL (*BKC) IV PUSH (23:01)
[2025-01-29] MEDS: HYDROmorphone HCL INJ (*CRX) 2 MG/ML VIAL 0.5 MG IV PUSH ×3 (01:54→08:48)
[2025-01-29] MEDS: SODIUM CHLORIDE 0.9% IV 1,000 ML 150 ML IV CONT ×2 (03:53→11:33)
[2025-01-29 05:15] VITALS: BP 147/68; PULSE 75; RESP 20; TEMP 36.3; O2SAT 99
[2025-01-29] MEDS: KETOROLAC 15 MG/ML VIAL (*BKC) IV PUSH ×2 (05:56→11:31)
[2025-01-29 08:09] LABS: Cannabinoid Screen Urine Positive (Negative)
[2025-01-29] MEDS: FENOFIBRATE NANOCRYSTALLIZED 145 MG TABLET PO (08:46)
[2025-01-29] MEDS: DOCUSATE SODIUM 100 MG CAPSULE PO (08:46)
[2025-01-29] MEDS: PANTOPRAZOLE SODIUM IV 40 MG VIAL IV PUSH (08:46)
[2025-01-29] MEDS: RIVAROXABAN 20 MG TABLET PO (08:46)
[2025-01-29] MEDS: SENNA/DOCUSATE SODIUM TABLET 1 TAB PO (11:30)
[2025-01-29] MEDS: LACTULOSE 20 GM/30 ML UDC PO (11:31)
[2025-01-29] MEDS: buPROPion HCL XL (24 HR) 150 MG TABCR PO (11:31)
[2025-01-29 14:00] VITALS: BP 95/65; PULSE 64; RESP 18; TEMP 36.6; O2SAT 100
--- NOTE | 2025-01-29 14:29 | P.DS_ITS ---
DS: Admitting Diagnosis Discharge Date 01/29/2025 Admitting Diagnosis Chronic pancreatitis/constipation DS: Discharge Diagnosis Discharge Diagnosis (1) Acute on chronic pancreatitis: Code(s): K85.90 - Acute pancreatitis without necrosis or infection, unspecified; K86.1 - Other chronic pancreatitis Status: Acute (2) TBI (traumatic brain injury): Code(s): S06.9XAA - Unspecified intracranial injury with loss of consciousness status unknown, initial encounter Status: Acute (3) Anxiety: Code(s): F41.9 - Anxiety disorder, unspecified Status: Acute (4) Hyperlipidemia: Code(s): E78.5 - Hyperlipidemia, unspecified Status: Acute (5) Hypertension: Code(s): I10 - Essential (primary) hypertension Status: Acute (6) Constipation: Code(s): K59.00 - Constipation, unspecified Status: Acute DS: Summary Hospital Course Reason for hospitalization: Chronic pancreatitis/constipation Hospital Course: Admission: 44-year-old female with history hyperlipidemia, TBI and pancreatitis presents the hospital with abdominal pain. She denies alcohol use. She endorses nausea and vomiting and unable to eat or drink. Lab work in the ED shows leukocytosis at 12.1, sodium of 134, creatinine of 0.55, AST of 40, cholesterol panel pending, UA with trace leukocyte esterase tox screen and ethanol level pending. Lipase 140. CT abdomen shows chronic pancreatitis. EKG shows sinus rhythm. Hospital course: Patient was admitted to the medical unit for further evaluation and treatment possible acute on chronic pancreatitis however CT did show a large amount of stool in the ascending colon likely resulting in patient's abdominal pain. Patient was started on IV fluids, antiemetics, and a bowel regimen advanced her diet to regular diet. Patient did have a bowel movement with relief to abdominal symptoms did not appear to be in acute flare of her pancreatitis lipase normal labs and vitals unremarkable. At time of discharge patient in no acute distress no further complaints was tolerating oral intake and had bowel movements. I did discharge patient on a bowel regimen recommended oral hydration and to increase her activity also recommended reducing her narcotic use at home. patient ambulatory on own discharged home with follow-up with her GI doctor outpatient. Status at Discharge Functional status at discharge: independent ambulation Overall status at discharge: patient is back to baseline Time Spent with Patient Time attestation: Total time spent providing and/or coordinating discharge services: Time spent: Greater than 30 minutes Exam Narrative: General: well appearing, appears stated age. HEENT: normocephalic, Mucous membranes moist. PERRLA, Respiratory: clear to auscultation bilaterally Cardiovascular:RRR Abdomen: Soft, non-distended and bowel sounds present in all 4 quadrants Neuro: Alert and orientated x 4. Skin: Warm, dry, and intact, without rash, erythema, or lesion. Psych: pleasant, cooperative, normal speech, normal affect, no hallucinations DS: Data Data Completed and Pending Labs on day of discharge: Labs from last 24 hours 01/28/25 01/28/25 01/28/25 17:33 12:38 12:36 Troponin I < 0.012 Triglycerides 75 Cholesterol 197 LDL Cholesterol Direct 81 HDL Direct 95 Urine Opiates Screen Positive A Urine Methadone Screen Negative Ur Barbiturates Screen Negative Ur Phencyclidine Scrn Negative Ur Amphetamine Screen Negative U Benzodiazepines Scrn Negative Urine Cocaine Screen Negative U Cannabinoids Screen Positive A Ethyl Alcohol < 10 Imaging Radiologist's impression: EXAMINATION: CT abdomen pelvis w con DATE: 01/28/2025 14:19 INDICATION: Upper abdomen pain. History of chronic pancreatitis. TECHNIQUE: Computed tomography (CT) of the abdomen and pelvis was performed with 100 cc Omnipaque 350 intravenous contrast. The dose-length product was 233.28 mGy-cm. Automated exposure control and iterative reconstruction technique were employed. COMPARISON: CT dated 02/28/2012. FINDINGS: Lung bases unremarkable. Heart size normal. No significant pleural or pericardial effusion. Fatty infiltration of the liver. Gallbladder mildly distended, nonspecific. The spleen, adrenal glands and kidneys are unremarkable. Nonobstructive bowel gas pattern. No evidence for diverticulitis. Gallbladder is present. No hydronephrosis. No significant vascular abnormality. No lymphadenopathy. No acute osseous abnormality. There are calcifications of the pancreatic head consistent with chronic pancreatitis. IMPRESSION: 1. No acute abdominal abnormality. 2: Chronic pancreatitis. Discharge Plan Discharge Attending physician on discharge: Vitaliy Hardin Consulting providers: Ghada Tomas Discharging Clinician: Ghada Tomas Anticipated Discharge Date/Time: 01/29/25 14:20 Patient Disposition: Home Activity: as tolerated Diet: as tolerated Discharge Instructions: 1). Constipation * drink plenty of water avoid excessive heat * increase activity as tolerated * avoid narcotics which can worsen constipation * I have prescribed as needed bowel regiment to help with further constipation most medications can be found OTC 2). Hypertension * I have Discontinue your lisinopril/hydrochlorothiazide hydrochlorothiazide can worsen dehydration in the to further complications and recurrence constipation * I have for side nifedipine 30 mg daily for better BP control How can you care for yourself at home? ? Keep track of any new symptoms or changes in your symptoms. ? Rest until you feel better. ? Be safe with medicines. Take your medicines exactly as prescribed. Call your doctor if you think you are having a problem with your medicine. ? Do not drive after taking a prescription pain medicine. ? Ensure to follow-up with primary care physician as indicated and provide updated medication list provided to you at discharge. When should you call for help? Call 911 anytime you think you may need emergency care. For example, call if: ? You passed out (lost consciousness). Call your doctor now or seek immediate medical care if: ? You have new symptoms like fever, difficulty breathing, Chest pain, vomiting, or rash. ? You have new or different pain. ? You are confused and are having trouble thinking clearly. ? Your symptoms are getting worse. Watch closely for changes in your health, and be sure to contact your doctor if: ? You do not get better as expected. Patient Instructions: Antibiotic Form, Constipation (DC) Patient Language: Amharic Stand Alone Forms: General Discharge Information Follow-up/Referrals: Levon,TEMO Miller [Primary Care Provider] - 2 Weeks Discharge Medications: New sennosides-docusate sodium [Senokot-S] 8.6-50 mg Tablet 1 tab PO BID Qty: 60 0RF lactulose 10 gram/15 mL Solution 20 g PO Q6HR PRN (Reason: constipation) Qty: 237 0RF Rx Instructions: Take until BM nifedipine [Procardia XL] 30 mg Tablet Extended Release 24hr 30 mg PO QAM Qty: 30 0RF Continued bupropion HCl [Wellbutrin XL] 150 mg Tablet Extended Release 24 Hr 150 mg PO BID fenofibrate 160 mg Tablet 160 mg PO DAILY Xarelto 20 mg tablet 20 mg PO DAILY hydroxyzine HCl 50 mg tablet 50 mg PO BID ergocalciferol (vitamin D2) 1,250 mcg (50,000 unit) capsule 50,000 unit PO WEEKLY albuterol sulfate 90 mcg/actuation HFA aerosol inhaler 2 puff INHALATION BID PRN (Reason: shortness of breath or wheezing) Discontinued lisinopril-hydrochlorothiazide 20-25 mg tablet 1 tablet PO DAILY Qty: 30 1RF Date of admission: 01/28/25 16:52 Primary Care Provider: NathanielAngela Admitting Provider: Momo Leon Attending physician on admission: Momo Leon Condition: Stable Quality VTE Prophylaxis VTE prophylaxis: mechanical ordered and pharmacologic ordered -Patient's previous records reviewed on admission -ER notes reviewed in detail on admission -discussed all findings and current treatment plan with patient/Family/POA -Consultations reviewed for recommendations -Patient's disposition for safe discharge discussed with top case assembler Dictation performed by [employer] direct speech recognition software, therefore food management aide variants and typographical errors may occur. Hospitalist MIPS Heart Failure (Exclusion) Patient has history of Heart Transplant or Left Ventricular Assistive Device?: No IF YES, STOP HERE Heart Failure (Qualifier) Patient has current or prior documentation of LVEF less than or equal to 40%, or mod/servere depressed LVSF?: No IF NO, STOP HERE
[2025-01-29] MEDS: KETOROLAC 30 MG/ML VIAL (*BKC) IV PUSH (15:21)
== END 2025-01-29 16:00 | disposition home or self-care (01) ==
LOC: ANHED 16:21 → ANH3MEDSUR 01-29 08:47
PROVIDERS: Admitting Provider Internal Medicine; Emergency Provider Physician Assistant; PCP Physician Assistant; Visit Provider Family Medicine
DX: K85.90 Acute pancreatitis without necrosis or infection, unspecified (principal); K86.1 Other chronic pancreatitis; E78.5 Hyperlipidemia, unspecified; F41.9 Anxiety disorder, unspecified; I10 Essential (primary) hypertension; K59.00 Constipation, unspecified; Z79.01 Long term (current) use of anticoagulants; Z79.51 Long term (current) use of inhaled steroids; Z79.899 Other long term (current) drug therapy; Z87.820 Personal history of traumatic brain injury; Z87.891 Personal history of nicotine dependence; Z88.0 Allergy status to penicillin; Z88.8 Allergy status to other drugs, medicaments and biological substances; Z91.041 Radiographic dye allergy status; Z91.040 Latex allergy status
CPT/HCPCS: 36415; 74177; 80053; 80061; 80307; 81001; 82077; 83690; 84478; 84484; 85025; 93005; 96361; 96374; 96375; 96376; 99285; A9270; G0378; G0379; J1171; J1200; J1885; J2270; J2405; J2470; J2765; J7030; Q9967

== ENCOUNTER 2025-04-12 16:18 | Inpatient (IN) | payer OTHER, SELFPAY ==
[2025-04-12] VITALS (8 sets, daily range): BP systolic 126–178; BP diastolic 82–100; PULSE 50–92; RESP 13–18; TEMP 36.5–36.7; O2SAT 96–100; BMI 19.3
--- NOTE | ~2025-04-12 | CT_ITS ---
CT abdomen pelvis w con Clinical History: Pancreatitis. Comparison: 01/28/2025 Technique: Axial images lung bases to symphysis pubis IV contrast information not listed in PACS Coronal, sagittal reformats CT images acquired with automatic exposure control for dose reduction DLP: 209 mGy-cm Findings: Lung bases: Clear. Visualized heart and pericardium: Unremarkable. Liver: Enlarged. Steatosis. Gallbladder: Unremarkable. Spleen: Unremarkable. Pancreas: A few calcifications within head. Peripancreatic venous collaterals. Mild stranding around pancreatic head. Adrenal glands: Unremarkable. Kidneys: Right kidney- No hydronephrosis. No renal stones. Left kidney- No hydronephrosis. No renal stones. Distal esophagus/stomach: Unremarkable. Small bowel loops: Normal caliber and wall thickness. Colon: Normal caliber and wall thickness. Normal RLQ appendix. Nodes: No enlarged nodes. Peritoneum: No ascites. No free air. Urinary bladder: Unremarkable. Uterus: Unremarkable. Adnexa: No masses. Bones: No acute bony abnormality. Soft tissues: Unremarkable. Aorta: No aneurysm or dissection. IVC: Unremarkable. Main portal vein/SMV/splenic vein: Chronic thrombosis splenic vein. IMPRESSION: 1. Minimal acute pancreatitis. 2. Stigmata of chronic pancreatitis, including chronic splenic vein thrombosis. Reviewed, dictated and finalized at location R. IMPRESSION: 1. Minimal acute pancreatitis. 2. Stigmata of chronic pancreatitis, including chronic splenic vein thrombosis .
[2025-04-12 16:45] LABS: BEDSIDEPREGUCG Negative (Negative)
[2025-04-12 16:45] LABS: Hematocrit 37.4 % (37.0-47.0); Hemoglobin 12.4 g/dL (12.0-15.0); Immature Granulocyte Percent A 0.3 % (0-0.5); Lymphocytes Absolute Auto 1.50 K/mm3 (0.9-3.2); Mean Corpuscular HGB Conc 33.2 g/dl (32-36); Mean Corpuscular Hemoglobin 29.6 pg (26-34); Mean Corpuscular Volume 89.3 fl (80-100); Nucleated Red Blood Cells Absolute Auto 0.000 K/mm3 (0.0-0.012); Nucleated Red Blood Cells Perc 0.0 % (0.0-0.2); Platelet Count Result 344 k/mm3 (150-375); Red Blood Count 4.19 M/mm3 (4.2-5.4); White Blood Count 11.7 K/mm3 (4.5-10.0)
--- NOTE | 2025-04-12 16:50 | ED.ABDPAIN ---
HPI - Abdominal Pain General Chief Complaint: Abdominal Pain Stated Complaint: abd/ back pain Time Seen by Provider: 04/12/25 16:41 Source: patient, RN notes reviewed and old records reviewed Mode of arrival: ambulatory Limitations: no limitations History of Present Illness HPI narrative: This is a 44 year old female with history of chronic pancreatitis who presents for evaluation of upper abdominal pain. She reports pain started 3 days ago . She has constant pain right upper quadrant, epigastric that radiates to her back. She also reports nausea and vomiting and she is unable to keep anything down. She took a norco this morning and she states it did not help with her pain at all. She also reports fever 100.8 F . She denies urinary complaints. She denies URI or cough. Related Data Home Medications ?Medication ?Instructions ?Recorded ?Confirmed ?Last Taken ?Type bupropion HCl 150 mg 24 hr tablet, 150 mg PO BID 08/24/19 01/28/25 Unknown History extended release (Wellbutrin XL) fenofibrate 160 mg tablet 160 mg PO DAILY 08/24/19 01/28/25 Unknown History albuterol sulfate 90 mcg/actuation 2 puff inhalation BID PRN 01/28/25 01/28/25 Unknown History aerosol inhaler shortness of breath or wheezing ergocalciferol (vitamin D2) 1,250 50,000 unit PO WEEKLY 01/28/25 01/28/25 01/26/25 History mcg (50,000 unit) capsule hydroxyzine HCl 50 mg tablet 50 mg PO BID 01/28/25 01/28/25 Unknown History rivaroxaban 20 mg tablet (Xarelto) 20 mg PO DAILY 01/28/25 01/28/25 Unknown History Allergies Allergy/AdvReac Type Severity Reaction Status Date / Time fluoxetine (From Prozac) Allergy Mild Hives Verified 04/12/25 16:59 Gadolinium-Containing Allergy Mild Sneezing Verified 04/12/25 16:59 Contrast Medi latex Allergy Rash Verified 04/12/25 16:59 ondansetron (From Zofran) Allergy hives Verified 04/12/25 16:59 Penicillins Allergy Hives Verified 04/12/25 16:59 [facility] Past Medical History Medical History Hypertension Hyperlipidemia TBI (traumatic brain injury) Acute on chronic pancreatitis Social History Social History Smoking status: Former smoker Tobacco type: cigarettes Alcohol intake: current Drinks per week: 1 Substance use: current Substance use type: marijuana Last use: 01/27/2025 Do You Feel Safe in your Home?: Yes Lack of Transportation: YES Lack of Food: Never True Current Housing: I Do Not Have Housing Concerned About Future Housing: YES Difficulty Paying Gas/Electric Bills: YES Difficulty Paying for Meds: No Currently Unemployed: No Education: Associate Degree Difficulty w/ Childcare or Family Care: No Spiritual care concerns: No Exam Const: General: alert Nutritional Appearance: well nourished Orientation/consciousness: patient oriented x3 Limitations: no limitations Other: appears to be in pain Resp: Effort & Inspection: normal respiratory effort Auscultation: clear to auscultation bilaterally Cardio: Rate: regular rate Rhythm: regular rhythm Heart sounds: no murmurs GI: GI Palp: Yes Soft to palpation and Yes Tenderness to palpation present (GI) (RUQ, epigastric) Auscultation: normal bowel sounds : General: Yes no CVA tenderness Back/Spine/Pelvis: Back: no CVA tenderness Skin: General skin exam: normal color Rashes: no rashes Neuro: General: patient oriented x3, moves all extremities and CN's II-XI intact bilaterally Extrem: General: normal to inspection Psych: Mental Status: mental status grossly normal Affect: normal affect Attitude: cooperative Course Reevaluation(s) Reevaluation #1: PAtient states her pain initially improved with morphine but her pain is worsening again. I Discussed with patient that plan is to admit for her pancreatitis. CT shows mild inflammation to pancreas and lipase is elevated. UA shows +1 LE with wbc. She is not symptomatic. This may be due to dehydration. Will hold off on antibiotics and hospitalist can follow culture. She denies drinking alcohol in 4 years Date: 04/12/25 Time: 18:29 Consultations Consultation #1: I spoke with Dr. Geronimo with hospitalist and she accepts patient to service for acute pancreatitis. Date: 04/12/25 Time: 18:30 Vital Signs Vital signs: Vital Signs Temperature 98.1 F 04/12/25 16:24 Pulse Rate 92 04/12/25 16:24 Respiratory Rate 18 04/12/25 16:24 Blood Pressure 126/100 H 04/12/25 16:24 Pulse Oximetry 97 04/12/25 16:24 Oxygen Delivery Room Air 04/12/25 16:24 Temperature 98.1 F 04/12/25 16:24 Pulse Rate 66 04/12/25 18:06 Respiratory Rate 15 04/12/25 18:06 Blood Pressure 162/97 H 04/12/25 18:06 Pulse Oximetry 99 04/12/25 18:06 Oxygen Delivery Room Air 04/12/25 16:24 MDM - Abdominal Pain Differential Diagnosis Differential diagnosis: Likely abdominal pain, gastroenteritis, pancreatitis and small bowel obstruction Medical Records Attestation: I reviewed the patient's medical records. Lab Data Attestation: I reviewed the patient's lab results. 04/12/25 16:37 04/12/25 16:37 Labs: Lab Results 04/12/25 04/12/25 04/12/25 Range/Units 16:37 16:41 16:43 WBC 11.7 H (4.5-10.0) K/mm3 RBC 4.19 L (4.2-5.4) M/mm3 Hgb 12.4 (12.0-15.0) g/dL Hct 37.4 (37.0-47.0) % MCV 89.3 (80-100) fl MCH 29.6 (26-34) pg MCHC 33.2 (32-36) g/dl RDW 14.8 H (11.5-14.5) % Plt Count 344 (150-375) k/mm3 MPV 9.5 (7.4-10.4) fl Immature Gran % (Auto) 0.3 (0-0.5) % Neut % (Auto) 79.8 H (45.5-73.1) % Lymph % (Auto) 12.8 L (18.3-44.2) % Orange % (Auto) 6.6 (2.6-8.5) % Eos % (Auto) 0.3 (0-4.4) % Baso % (Auto) 0.2 (0.2-1.2) % Lymph # (Auto) 1.50 (0.9-3.2) K/mm3 Orange # (Auto) 0.8 H (0.1-0.6) K/mm3 Eos # (Auto) 0.0 (0-0.3) K/mm3 Baso # (Auto) 0.0 (0.0-0.1) K/mm3 Abs Immat Gran (auto) 0.03 (0.00-0.031) K/mm3 Absolute Neuts (auto) 9.4 H (1.3-6.7) K/mm3 Absolute Nucleated RBC 0.000 (0.0-0.012) K/mm3 Nucleated RBC % 0.0 (0.0-0.2) % Sodium 132 L (137-145) mmol/L Potassium 4.0 (3.4-5.0) mmol/L Chloride 99 (98-107) mmol/L Carbon Dioxide 23 (22-30) mmol/L Anion Gap 10 (4-12) mmol/L BUN 16 (7-17) mg/dL Creatinine 0.65 L (0.7-1.0) mg/dL Estim Creat Clear Calc 82 ml/min Estimated GFR > 60 (59 - ) Glucose 132 H (65-110) mg/dL Calcium 9.7 (8.4-10.2) mg/dL Total Bilirubin 0.9 (0.2-1.3) mg/dL AST 34 (14-36) U/L ALT 26 (6-35) U/L Alkaline Phosphatase 60 (38-126) U/L Total Protein 8.8 H (6.3-8.2) g/dL Albumin 5.0 (3.5-5.1) g/dL Lipase 785 H (23-300) U/L Urine Color Dark yellow (Yellow) Urine Appearance Cloudy H (Clear) Urine pH 5.0 (5.0-9.0) Ur Specific [place] 1.022 (1.001-1.035) Urine Protein Trace (Negative) mg/dL Urine Glucose (UA) Negative (Negative) mg/dL Urine Ketones Trace H (Negative) mg/dL Ur Blood (Man) Trace (Negative) Urine Nitrate Negative (Negative) Urine Bilirubin 1+ H (Negative) Urine Urobilinogen 1.0 (<2.0) mg/dL Add Ur Microanalysis Reviewed Leukocyte Esterase Rfl 1+ H (Negative) ZACARIAS/UL Urine RBC 0-2 (0-2) /hpf Urine WBC 6-10 H (0-3) /hpf Ur Squamous Epith Cells Occasional (Few) /hpf Urine Bacteria None seen /hpf Urine Casts >20 Hyaline Casts Present (None) /lpf Urine Mucus Present /lpf POC Urine HCG, Qual Negative (Negative) Imaging Data Radiologist's impression: ITS Impressions Abdomen/Pelvis CT 04/12/25 17:58 IMPRESSION: 1. Minimal acute pancreatitis. 2. Stigmata of chronic pancreatitis, including chronic splenic vein thrombosis. Critical Care Time Critical Care Time Critical Care Time: Yes Total Critical Care Time: 35 Discharge Plan Discharge Clinical Impression: Acute on chronic pancreatitis Patient Disposition: Still a Patient Condition: Stable Instructions: Antibiotic Form Patient Language: Indonesian Prescriptions: No Action bupropion HCl [Wellbutrin XL] 150 mg Tablet Extended Release 24 Hr 150 mg PO BID fenofibrate 160 mg Tablet 160 mg PO DAILY Xarelto 20 mg tablet 20 mg PO DAILY hydroxyzine HCl 50 mg tablet 50 mg PO BID ergocalciferol (vitamin D2) 1,250 mcg (50,000 unit) capsule 50,000 unit PO WEEKLY albuterol sulfate 90 mcg/actuation HFA aerosol inhaler 2 puff INHALATION BID PRN (Reason: shortness of breath or wheezing) sennosides-docusate sodium [Senokot-S] 8.6-50 mg Tablet 1 tab PO BID Qty: 60 0RF lactulose 10 gram/15 mL Solution 20 g PO Q6HR PRN (Reason: constipation) Qty: 237 0RF Rx Instructions: Take until BM nifedipine [Procardia XL] 30 mg Tablet Extended Release 24hr 30 mg PO QAM Qty: 30 0RF Follow-up/Referrals: Levon,TEMO Miller [Non-Staff, Unknown]
--- OUTSIDE RECORDS SUMMARY | 2025-04-12 16:57 | XMS_ITS | Clinical Summary ---
Author Organization [facility] Address [facility] [place] [address] Care Team Providers Care Account Manager Employee Benefits Name Role Phone Angela Dos Santos PA-C Primary Care Provider [phone] Allergies Active Allergy Reactions Criticality Noted Date [...] a day. Active vitamin D2, ergocalciferol, (DRISDOL) 29499 UNITS capsule Take 1 capsule (50,000 Units total) by mouth every 7 days. Fridays Active CREON 35932-16515 units capsuleIndications :Chronic pancreatitis, unspecified pancreatitis type [...] Date Diagnosed Date Acute on chronic pancreatitis ([facility]/HCC HHS/HCC) 07/23/2023 Pancreatitis, necrotizing ([facility]) 02/11/2022 Acute pancreatitis ([facility]) 02/10/2022 Diarrhea, unspecified type 10/23/2021 Overview (10/23/2021): Added automatically from request for surgery [id number] Family history of pancreatitis 10/23/2021 Overview (10/23/2021): Added automatically from request for surgery [id number] Menometrorrhagia 09/06/2021 S/P hysterectomy 09/06/2021 Hypertriglyceridemia 07/20/2021 Pancreatitis ([facility]) 07/14/2020 PTSD (post-traumatic stress disorder) 09/12/2009 [...] 0.6 oz pu re alcohol) 3x's/week -beer Indexing Answer Date Recorded In the past 12 months has [employer], gas, oil, or water [employer] threatened to shut off services in your [...] Yes 07/23/2023 Housing Stability Vital Sign Answer Germna e [...] place to sleep or slept in a fdc (including now)? No 07/23/2023 Housing Stability Vital [...] Comments Blood Pressure 118/81 07/27/2023 12:12 PM DIRECT SUPPORT PROFESSIONAL Pulse 70 07/27/2023 12:12 PM DIRECT SUPPORT PROFESSIONAL Temperature 36.1 C (97 F) 07/27/2023 12:12 PM DIRECT SUPPORT PROFESSIONAL Respiratory Rate 16 07/27/2023 12:12 PM DIRECT SUPPORT PROFESSIONAL Oxygen Saturation 100% 07/27/2023 12:12 PM DIRECT SUPPORT PROFESSIONAL Inhaled Oxygen Concentration - - Weight 66 kg (145 lb 8.1 oz) 07/27/2023 3:30 AM DIRECT SUPPORT PROFESSIONAL Height 167.6 cm (5' 5.98) 07/23/2023 6:44 PM CS T Body Mass Index 23.5 07/23/2023 6:44 PM DIRECT SUPPORT PROFESSIONAL Plan of Treatment Health Maintenance Due Date Last Done Comments Annual Physical 11/18/1982 Hepatitis C 11/18/1997 DTaP, Tdap and Td Vaccines ( 1 - Tdap) 11/18/1998 Hepatitis B Vaccines (1 of 3 - 19+ 3-dose series) 11/18/1998 HPV Vaccines (1 - 3-dose SCD M series) 11/18/2006 Mammogram Screening 2019 PHQ-2 (Physician [place]) 07/15/2024 COVID-19 Vaccine ( - 2023-2 5 season) 2025 Colorectal Cancer Screening Colonoscopy (10 Years) 11/14/2031 11/13/2021 Meningococcal B Vaccine Aged Out No l [...] home upon discharge Lifestyle No Meeta Pickens, parts assembler - family caregiver with be involved in care transitions and discharge planning Lifestyle No Karma García, CLAIMS INVESTIGATOR Additional Health Concerns Infection Onset Date Last Indicated MRSA Comment:02/20/22 citlaly ([place]) 02/20/2022 02/20/2022 Insurance [facility] Advance Directives Documents on File Type Date Recorded Patient Batch Records Clerk Expl anation Advance Directives and Livin g Will 02/12/2022 1:12 PM [facility] * Full Code (Latest [...] 9:21 PM 05/09/2022 2:58 PM Care Teams Account Manager Employee Benefits Relationship Specialty Start Date End Date Angela Dos Santos PA-C PCP - General PHYSICIAN CHROME PLATER 02/07/22
--- OUTSIDE RECORDS SUMMARY | 2025-04-12 16:57 | XMS_ITS | Encounter Summary ---
Author Organization [facility] Address [address] [place] [address] Phone Care Team Providers Care Embedded Software Manager Name Role Phone Alfie Cervantes MD Primary Care Provider [phone] Angela Dos Santos PA Unavailable [phone] Heeln Calabrese NP Unavailable [phone] Modesta Luong NP Primary Care Provider [phone] Encounter Details Date Type Department Care Team (Late st Contact Info) Description 08/29/2022 Orders Only [facility] Scanning, Provider Social History Tobacco Use Types Packs/Day Years Used Date Smoking Tobacco: Never Assessed Comments Unknown Sex and Gender Information Value Date Recorded Sex Assigned at Not on file Legal Sex Female 9:46 AM HOTBED OPERATOR Gender Identity Female 08/08/2023 12:53 AM HOTBED OPERATOR Sexual Orientation Straight 08/08/2023 12 :53 AM HOTBED OPERATOR documented as of this encounter Plan of Treatment Not on file documented as of this encounter Procedures Procedure Name Priority Date/Time Associated Diagnosis Comments SCAN - RADIOLOGY/IMAGING 08/29/2022 documented in this encounter Results * SCAN - RADIOLOGY/IMAGING (08/29/2022) Anatomical Region Laterality Modality Other us Provider Scanning Final Result documented in this encounter Visit Diagnoses Not on filedocumented in this encounter Care Teams Embedded Software Manager Relationship Specialty Start Date End Date Alfie Cervantes MD [address] [facility] [address] [place] [address] PCP - General Gastroenterology 06/05/22 02/01/25 Modesta Luong NP [address] [facility] [address] [place] [address] PCP - General Internal Medicine 02/02/25 Angela Dos Santos PA [address] [place] [address] Physician Filler Feeder 06/05/22 Helen Calabrese NP [address] [facility] [address] [id number] Nurse Practitioner Family Practice 10/09/23 documented as of this encounter
--- OUTSIDE RECORDS SUMMARY | 2025-04-12 16:57 | XMS_ITS | Encounter Summary ---
Author Organization [facility] Address [address] [place] [address] Phone Care Team Providers Care Collision Mechanic Name Role Phone Angela Dos Santos Primary Care Provider [phone] Alfie Cervantes MD Primary Care Provider [phone] Angela Dos Santos Unavailable [phone] Helen Calabrese NP Unavailable [phone] Modesta Luong NP Primary Care Provider [phone] Encounter Details Date Type Department Care Team (Late st Contact Info) Description 04/25/2022 Orders Only [facility] Scanning, Provider Social History Tobacco Use Types Packs/Day Years Used Date Smoking Tobacco: Never Assessed Comments Unknown Sex and Gender Information Value Date Recorded Sex Assigned at Not on file Legal Sex Female 9:46 AM SET UP MECHANIC HEADING MACHINES Gender Identity Female 08/08/2023 12:53 AM SET UP MECHANIC HEADING MACHINES Sexual Orientation Straight 08/08/2023 12 :53 AM SET UP MECHANIC HEADING MACHINES documented as of this encounter Plan of [...] on filedocumented in this encounter Care Teams Collision Mechanic Relationship Specialty Start Date End Date Angela Dos Santos PA [address] [place] [address] PCP - General Physician Cad Specialist 05/25/22 06/04/22 Alfie Cervantes MD 3 [facility] [address] [place] [address] PCP - General Gastroenterology 06/05/22 02/01/25 Modesta Luong NP [address] [facility] [address] [place], [place] [id number] PCP - General Internal Medicine 02/02/25 Angela Dos Santos PA [facility] [place] [address] Physician Cad Specialist 06/05/22 Helen Calabrese NP [address] [facility] [place] [address] Nurse Practitioner Family Practice 10/09/23 documented as of this encounter
--- OUTSIDE RECORDS SUMMARY | 2025-04-12 16:57 | XMS_ITS | Clinical Summary ---
Author Organization [facility] Care Team Providers Care Doorkeeper Name Role Phone Unavailable Primary Care Provider Unavailabl e Social History Tobacco Use Types Packs/Day Years Used Date Smoking Tobacco: Never Assessed Comments Unknown Sex and Gender Information Value Date Recorded Sex Assigned at Not on file Legal Sex Female 9:45 AM JAVA SECURITY ARCHITECT Gender Identity Not on file Sexual Orientation Not on file Plan of Treatment Health Maintenance Due Date Last Done Comments Hepatitis C Virus (HCV) Screening 1980 TdaP Immunization 1979 Hepatitis B Immunization (1 of 3 - 19+ 3-dose series) 11/18/1998 Pap Smear 11/18/2000 Human Papillomavirus (HPV) Immunization (1 - 3-dose SCDM series) 11/18/2006 Cervical Cancer Screening (CCS) 11/18/2009 HPV/Cotest 11/18/2009 SARS-COV-2 Immunization ( season) 2024 Cologuard 11/18/2024 Colonoscopy 11/18/2024 Colorectal Cancer Screening 11/18/2024 Immunochemical Fecal Occult Blood 11/18/2024 Influenza Immunization (#1) 2025 Respiratory Syncytial Virus (RSV) Immunization (Adult) (1 [...]
--- OUTSIDE RECORDS SUMMARY | 2025-04-12 16:57 | XMS_ITS | Encounter Summary ---
Author Organization [facility] Address [facility] [place] [address] Care Team Providers Care Acidity Tester Name Role Phone Kelsie Jeffries MD Primary Care Provider [phone] Angela Dos Santos PA-C Primary Care Provider [phone] Encounter Details Date Type Department Care Team (Late st Contact Info) Description 11/10/2021 Prep for Procedure [facility] One Day Services ONE [place], [place] [id number] Alfie Cervantes MD [address] [address] Social History Tobacco Use Types [...] Assessment Author Status No 07/21/2021 5:40 PM REELER OPERATOR Activ e * RETIRED Are you blind or do you have serious difficulty seeing, even when wearing glasses? Answer Date of Assessment Author Status No 07/21/2021 5:40 PM REELER OPERATOR Activ e * Do you have serious difficulty walking or climbing stairs? Answer Date of Assessment Author Status No 07/21/2021 5:40 PM REELER OPERATOR Chloe Guerra S, R N Active * Do you have difficulty dressing or bathing? Answer Date of Assessment Author Status No 07/21/2021 5:40 PM REELER OPERATOR Chloe Guerra S, R N Active * Because of a physical, mental, or emotional condition, do you have difficulty doing errands alone such as visiting a doctor's office or shopping? Answer Date of Assessment Author Status No 07/21/2021 5:40 PM REELER OPERATOR Chloe Guerra S, R N Active * Calculated C-SSRS Risk Score (Lifetime/Recent) Answer Date of Assessment Author Status No Risk Indicated 11/13/2021 12:21 PM CDT Anna Juarez RN Active * [place] Suicide Severity Rating Scale (Screener/Recent Self-Report) Question [...] Date Author Status No 07/21/2021 5:40 PM REELER OPERATOR Chloe Guerra R N Active documented [...] SPEC DESCRIPTION NASAL 11/11/19 10:13 AM CDT [facility] CORONAVIRUS SARS COV 2 PCR (RESP) NEGATIVE NEGATIVE 11/10/2021 7:05 PM CDT [facility] Comment: THE SARS-CoV-2 TEST HAS BEEN AUTHORIZED BY THE FDA UNDER AN EUA FOR USE BY AUTHORIZED LABORATORIES. PERFORMED BY NUCLEIC ACID AMPLIFICATION PCR FIRST TEST NO 11/10/2021 10:13 AM CDT [facility] EMPLOYED IN HEALTHCARE NO 11/10/2021 10:13 AM CDT [facility] SYMPTOMATIC DEFINED BY CDC UNKNOWN 11/10/2021 10:13 AM CDT [facility] HOSPITALIZATION STATUS NO 11/10/2021 10:13 AM CDT [facility] PATIENT IN ICU NO 11/10/2021 10:13 AM CDT [facility] RESIDENT OF [facility] NO 11/10/2021 10:13 AM CDT [facility] NOT 11/10/2021 10:13 AM CDT [facility] NASAL STRUCTURE / Unknown 11/10/2021 9:15 AM CDT us Alfie Cervantes MD MICROBIOLOGY - GENERAL ORDERABLE S Final Result [facility] [address] [facility] [place] [address], [place] [phone] [facility] [address] [place] [address], [place] [phone] documented in this encounter Visit Diagnoses Diagnosis Abdominal pain- Primary Abdominal pain, unspecified site documented in this encounter Additional Health Concerns Infection Onset Date Last Indicated Resolved Time COVID-19 Rule Out 11/10/2021 11/10/2021 11/10/2021 7:05 PM CDT MRSA Comment:02/20/22 citlaly (SB) 02/20/2022 02/20/2022 documented as of this encounter Care Teams Acidity Tester Relationship Specialty Start Date End Date Kelsie Jeffries MD . [facility] [address] [place] [id number] PCP - General FAMILY PRACTICE 07/14/20 02/06/22 Angela Dos Santos, PASarahC . [facility] [address] [place] [address] PCP - General PHYSICIAN PIPE SUPERVISOR 02/07/22 documented as of this encounter
--- OUTSIDE RECORDS SUMMARY | 2025-04-12 16:57 | XMS_ITS | Encounter Summary ---
Author Organization [facility] Address [facility] [place] [address] Care Team Providers Care Adobe Cq Developer Name Role Phone Kelsie Jeffries MD Primary Care Provider [phone] Angela Dos Santos PA-C Primary Care Provider [phone] Encounter Details Date Type Department Care Team (Late st Contact Info) Description 08/10/2021 Hospital Follow-up Call [facility] Med/Surg [address]rd [place] [address] Meghan Forte, RN Social History Tobacco Use [...] Coronavirus / COVID-19? Yes 07/20/2021 10:28 AM MAIL CARRIER AND CLERK documented as of this encounter Functional Status * RETIRED Are you deaf or do you have serious difficulty hearing Answer Date of Assessment Author Status No 07/21/2021 5:40 PM MAIL CARRIER AND CLERK Activ e * RETIRED Are you blind or do you have serious difficulty seeing, even when wearing glasses? Answer Date of Assessment Author Status No 07/21/2021 5:40 PM MAIL CARRIER AND CLERK Activ e * Do you have serious difficulty walking or climbing stairs? Answer Date of Assessment Author Status No 07/21/2021 5:40 PM MAIL CARRIER AND CLERK Rakers Chloe S, R N Active * Do you have difficulty dressing or bathing? Answer Date of Assessment Author Status No 07/21/2021 5:40 PM MAIL CARRIER AND CLERK Rakers, Chloe S, R N Active * Because of a physical, mental, or emotional condition, do you have difficulty doing errands alone such as visiting a doctor's office or shopping? Answer Date of Assessment Author Status No 07/21/2021 5:40 PM MAIL CARRIER AND CLERK Rakers, Chloe S, R N Active documented as of this encounter Mental Status * Because of a physical, mental, or emotional condition, do you have serious difficulty concentrating, remembering, or making decisions? Answer Entry Date Author Status No 07/21/2021 5:40 PM MAIL CARRIER AND CLERK Rafanys Chloe S, R N Active documented in this encounter Progress Notes * Meghan Forte RN - 08/10/2021 5:14 PM CST Had no c/o any and states she would absolutely recommend the hospital. CARRIER AND CLERK documented in this encounter Plan of Treatment [...] Rule Out 09/04/2021 09/04/2021 09/04/2021 10:17 AM MAIL CARRIER AND CLERK COVID-19 Rule Out 11/10/2021 11/10/2021 11/10/2021 7:05 PM CDT MRSA Comment:02/20/22 citlaly (SB) 02/20/2022 02/20/2022 documented as of this encounter Care Teams Adobe Cq Developer Relationship Specialty Start Date End Date Kelsie Jeffries MD [facility] [address] [place] [address] PCP - General FAMILY PRACTICE 07/14/20 02/06/22 Angela Dos Santos PA-C . [facility] [address] [place] [address] PCP - General PHYSICIAN BOWLING BALL MARKER 02/07/22 documented as of this encounter
--- OUTSIDE RECORDS SUMMARY | 2025-04-12 16:57 | XMS_ITS | Encounter Summary ---
Author Organization [facility] Address [facility] [place] [address] Care Team Providers Care Healthcare Consulting Manager Name Role Phone Kelsie Jeffries MD Primary Care Provider [phone] Angela Dos Santos PA-C Primary Care Provider [phone] Encounter Details Date Type Department Care Team (Late st Contact Info) Description 09/06/2021 Prep for Procedure [facility] [address] [facility] [place] [address] Mara Borges MD [address] [place] [address] Social History Tobacco Use Types [...] Coronavirus/COVID-19? No / Unsure 09/06/2021 5:17 AM INVESTMENT TRADER documented as of this encounter Functional Status * RETIRED Are you deaf or do you have serious difficulty hearing Answer Date of Assessment Author Status No 07/21/2021 5:40 PM INVESTMENT TRADER Activ e * RETIRED Are you blind or do you have serious difficulty seeing, even when wearing glasses? Answer Date of Assessment Author Status No 07/21/2021 5:40 PM INVESTMENT TRADER Activ e * Do you have serious difficulty walking or climbing stairs? Answer Date of Assessment Author Status No 07/21/2021 5:40 PM INVESTMENT TRADER Chloe Guerra S, R N Active * Do you have difficulty dressing or bathing? Answer Date of Assessment Author Status No 07/21/2021 5:40 PM INVESTMENT TRADER Chloe Guerra S, R N Active * Because of a physical, mental, or emotional condition, do you have difficulty doing errands alone such as visiting a doctor's office or shopping? Answer Date of Assessment Author Status No 07/21/2021 5:40 PM INVESTMENT TRADER Chloe Guerra S, R N Active * Calculated C-SSRS Risk Score (Lifetime/Recent) Answer Date of Assessment Author Status No Risk Indicated 09/06/2021 6:00 AM INVESTMENT TRADER Francesca Baumann RN Active * [place] Suicide Severity Rating Scale (Screener/Recent Self-Report) Question [...] Date Author Status No 07/21/2021 5:40 PM INVESTMENT TRADER Chloe Guerra R N Active documented in this encounter Plan of Treatment Not on file documented as of this encounter Goals Goal Patient Goal Type Associated Problems Recent Progress Patient-Stated? Author Health - patient able to perform ADLs independently General No Evangelina Jenkins RN documented as of this encounter Results * (ABNORMAL) CBC W/DIFF AUTOMATED (09/04/2021 9:25 AM INVESTMENT TRADER) [facility] WBC 9.2 4.5 - 11.0 x10'3/uL 09/04/2021 10:57 AM [facility] RBC 3.64(L) 4.20 - 5.40 x10'6/uL 09/04/2021 10:57 AM [facility] HGB 10.9(L) 12.0 - 16.0 G/DL 09/04/2021 10:57 AM [facility] HCT 34.1(L) 38.0 - 48.0 % 09/04/2021 10:57 AM [facility] MCV 93.7 81.0 - 99.0 FL 09/04/2021 10:57 AM [facility] MCH 29.9 27.0 - 31.0 PG 09/04/2021 10:57 AM [facility] MCHC 32.0 32.0 - 36.0 G/DL 09/04/2021 10:57 AM [facility] RDW 14.8(H) 11.5 - 14.5 % 09/04/2021 10:57 AM [facility] PLT 467(H) 130 - 400 x10'3/uL 09/04/2021 10:57 AM [facility] MPV 10.1 9.3 - 12.2 FL 09/04/2021 10:57 AM [facility] DIFFERENTIAL TYPE AUTOMATED DIFFERENTIAL 09/04/2021 10:57 AM INVESTMENT TRADER [facility] NEUTROPHILS % 62.4 % 09/04/2021 10:57 AM [facility] LYMPHOCYTES % 27.9 % 09/04/2021 10:57 AM [facility] MONOCYTES % 7.8 % 09/04/2021 10:57 AM [facility] EOSINOPHILS 0.8 % 09/04/2021 10:57 AM [facility] BASOPHILS 0.8 % 09/04/2021 10:57 AM [facility] IMMATURE GRANS % 0.3 % 09/04/19 10:57 AM [facility] ABS. NEUTROPHILS TOTAL 5.72 1.80 - 7.70 x10'3/uL 09/04/2021 10:57 AM [facility] ABS. LYMPHOCYTES 2.56 1.00 - 4.80 x10'3/uL 09/04/2021 10:57 AM [facility] ABS. MONOCYTES 0.71 0.24 - 0.86 x10'3/uL 09/04/2021 10:57 AM [facility] ABS. EOSINOPHILS 0.07 0.04 - 0.36 x10'3/uL 09/04/2021 10:57 AM [facility] ABS. BASOPHILS 0.07 0.01 - 0.08 x10'3/uL 09/04/2021 10:57 AM [facility] ABS. IMMATURE GRANULOCYTES 0.03 0.00 - 0.49 x10'3/uL 09/04/2021 10:57 AM [facility] 09/04/2021 9:25 AM INVESTMENT TRADER us Mara Borges MD LABORATORY Final Result [facility] [address] [place] [address], * TYPE & SCREEN (09/04/2021 9:25 AM INVESTMENT TRADER) ABO/RH A POSITIVE 09/04/2021 11:01 AM INVESTMENT TRADER [facility] ANTIBODY SCREEN NEGATIVE 09/04/2021 11:01 AM INVESTMENT TRADER [facility] SAMPLE EXPIRATION 09/09/2021,2 359 09/06/2021 6:38 AM INVESTMENT TRADER [facility] COMMENT NO HISTORY OF TRANSFUSIONS , OR ANTIBODIES, NEW SPECIMEN NOT NEEDED 09/06/2021 6:38 AM INVESTMENT TRADER [facility] 09/04/2021 9:25 AM INVESTMENT TRADER Result [facility] Mara Borges MD BLOOD BANK TEST ORDERABLES Final Result Performing Organization Address [facility] Co de Phone Number [facility] [address] [place] [address], * CORONAVIRUS (COVID-19) ANTIGEN (In-house Ivy) (09/04/2021 9:00 AM INVESTMENT TRADER) Pathologist [facility] CORONAVIRUS ANTIGEN IA NEGATIVE NEGATIVE 09/04/2021 10:17 AM INVESTMENT TRADER [facility] Comment: NEGATIVE RESULTS SHOULD BE [...] LABORATORIES. SPECIMEN TYPE NASAL 09/04/2021 9:49 AM INVESTMENT TRADER [facility] FIRST TEST NO 09/04/2021 9:49 AM INVESTMENT TRADER [facility] EMPLOYED IN HEALTHCARE NO 09/04/2021 9:49 AM INVESTMENT TRADER [facility] SYMPTOMATIC DEFINED BY CDC NO 09/04/2021 9:49 AM INVESTMENT TRADER [facility] HOSPITALIZATION STATUS NO 09/04/2021 9:49 AM INVESTMENT TRADER [facility] PATIENT IN ICU NO 09/04/2021 9:49 AM INVESTMENT TRADER [facility] RESIDENT OF [facility] NO 09/04/2021 9:49 AM INVESTMENT TRADER [facility] NOT 09/04/2021 9:49 AM INVESTMENT TRADER [facility] Specimen from nose (specimen) NASAL STRUCTURE / Unknown 09/04/2021 9:00 AM INVESTMENT TRADER us Mara Borges MD MICROBIOLOGY - GENERAL ORDERABLE S Final Result [facility] [address] [place] [address], documented in this encounter Visit Diagnoses Diagnosis Preoperative testing- Primary Preoperative examination, unspecified documented in this encounter Additional Health Concerns Infection Onset Date Last Indicated Resolved Time COVID-19 Rule Out 11/10/2021 11/10/2021 11/10/2021 7:05 PM CDT MRSA Comment:02/20/22 nares (SB) 02/20/2022 02/20/2022 documented as of this encounter Care Teams Healthcare Consulting Manager Relationship Specialty Start Date End Date Kelsie Jeffries MD [facility] [place] [address] PCP - General FAMILY PRACTICE 07/14/20 02/06/22 Angela Dos Santos, PA-C . [facility] [address] [place] [address] PCP - General PHYSICIAN FINAL ASSEMBLY INSPECTOR 02/07/22 documented as of this encounter
--- OUTSIDE RECORDS SUMMARY | 2025-04-12 16:57 | XMS_ITS | Encounter Summary ---
Author Organization [facility] Address [address] [place] [address] Phone Care Team Providers Care Yard Switcher Name Role Phone Angela Dos Santos Primary Care Provider [phone] Alfie Cervantes MD Primary Care Provider [phone] Angela Dos Santos Unavailable [phone] Helen Calabrese NP Unavailable [phone] Modesta Luong NP Primary Care Provider [phone] Encounter Details Date Type Department Care Team (Late st Contact Info) Description 03/27/2022 Orders Only [facility] Scanning, Provider Social History Tobacco Use Types Packs/Day Years Used Date Smoking Tobacco: Never Assessed Comments Unknown Sex and Gender Information Value Date Recorded Sex Assigned at Not on file Legal Sex Female 9:46 AM GENERAL OPHTHALMOLOGIST Gender Identity Female 08/08/2023 12:53 AM GENERAL OPHTHALMOLOGIST Sexual Orientation Straight 08/08/2023 12 :53 AM GENERAL OPHTHALMOLOGIST documented as of this encounter Plan of Treatment Not on file documented as of this encounter Procedures Procedure Name Priority Date/Time Associated Diagnosis Comments SCAN - RADIOLOGY/IMAGING 03/27/2022 documented in this encounter Results * SCAN - RADIOLOGY/IMAGING (03/27/2022) Anatomical Region Laterality Modality Other us Provider Scanning Final Result documented in this encounter Visit Diagnoses Not on filedocumented in this encounter Care Teams Yard Switcher Relationship Specialty Start Date End Date Angela Dos Santos PA [address] [place] [address] PCP - General Physician Base Filler 05/25/22 06/04/22 Alfie Cervantes MD 3 [facility] [address] [place] [address] PCP - General Gastroenterology 06/05/22 02/01/25 Modesta Luong NP [address] [facility] [address] [place], [place] [id number] PCP - General Internal Medicine 02/02/25 Angela Dos Santos PA [address] [place] [address] Physician Base Filler 06/05/22 Helen Calabrese BOARD WINDER [address] [facility] [place] [address] Nurse Practitioner Family Practice 10/09/23 documented as of this encounter
--- OUTSIDE RECORDS SUMMARY | 2025-04-12 16:57 | XMS_ITS | Clinical Summary ---
Author Organization [facility] [address] [facility] Address [address] [place] [address] Care Team Providers Care Jumpbasting Facing Baster Name Role Phone Angela Dos Santos Unavailable [phone] Helen Calabrese NP Unavailable [phone] Modesta Luong NP Primary Care Provider [phone] Allergies Active Allergy Reactions Criticality Noted Date Comments Gadolinium-Containing Contrast Media Shortness of breath,Swelling High 04/11/2022 Throat started swelling during MRI Latex Hives Medium 06/29/2022 Penicillins Hives,Other (See comments) Medium 07/14/2020 Product containing penicillin (product) Tolerates carbapenems 02/2022 Sertraline Seizures,Other (See comments) High 08/02/2020 Was taking 48 hrs, had uncontrollable seizures Zoloft Medications senna (SENOKOT) 8.6 mg tablet Take 1 tablet by mouth daily Active cyclobenzaprine (FLEXERIL) 10 mg tablet Take 1 tablet (10 mg total) by mouth 05/11/20 24 Active dicyclomine (BENTYL) 20 mg tablet Take 1 tablet (20 mg total) by mouth every 6 (six) hours 07/22/19 24 Active HYDROcodone-acetam inophen (NORCO) 5-325 mg per tablet 0 11/12/19 25 Active buPROPion XL (WELLBUTRIN XL) 300 mg 24 hr tablet Take 1 tablet (300 mg total) by mouth daily 90 tablet 3 02/03/20 25 Active albuterol HFA (PROVENTIL HFA,VENTOLIN HFA,PROAIR HFA) 90 mcg/actuation inhaler Inhale 2 puffs every 6 (six) hours as needed for wheezing 1 each 02/03/20 25 Active fenofibrate (TRIGLIDE) 160 mg tablet Take 1 tablet (160 mg total) by mouth daily 90 tablet 02/03/20 25 Active ergocalciferol (VITAMIN D) 50,000 unit capsule Take 1 capsule (50,000 Units total) by mouth once a week 12 capsule 02/03/20 25 Active hydrOXYzine (ATARAX) 50 mg tablet Take 1 tablet (50 mg total) by mouth every 8 (eight) hours as needed for anxiety 90 tablet 02/03/20 25 Active ondansetron ODT (ZOFRAN-ODT) 4 mg disintegrating tablet Take 1 tablet (4 mg total) by mouth every 8 (eight) hours as needed for vomiting or nausea 20 tablet 02/03/[address] (PROTONIX) 40 mg EC tablet Take 1 tablet (40 mg total) by mouth every morning 90 tablet 02/03/20 25 Active rivaroxaban (XARELTO) 20 mg tablet Take 1 tablet (20 mg total) by mouth daily with dinner 30 tablet 02/03/20 25 Active celecoxib (CeleBREX) 100 mg capsule Take 1 capsule (100 mg total) by mouth 2 (two) times a day 60 capsule 02/03/20 25 Active fluticasone propionate (FLONASE) 50 mcg/actuation nasal spray Administer 1 spray into each nostril daily 1 each 02/03/20 25 Active polyethylene glycol (MIRALAX) 17 gram/dose bulk powder Take 17 g by mouth daily 850 g 02/03/20 25 Active Creon 24,000-76,000 -120,000 unit capsuleIndications :exocrine pancreatic insufficiency Take 1 capsule three times a day with meals and 1 capsule with snacks as needed 540 capsule 03/26/20 25 Active Creon 24,000-76,000 -120,000 unit capsuleIndications :exocrine pancreatic insufficiency Take 1 capsule by mouth as needed for with snacks (in addition to regular creon replacement) 90 capsule 02/03/20 25 025 Discontin ued(Alter akilah therapy) Creon 24,000-76,000 -120,000 unit capsuleIndications :exocrine pancreatic insufficiency Take 1 capsule by mouth 3 (three) times a day with meals 270 capsule 3 02/03/20 025 Discontin ued(Reord er) Active Problems Problem Noted Date Diagnosed Date Splenic vein thrombosis 02/02/2025 Assessment & Plan (02/05/2025 6:09 PM CDT): History of splenic vein thrombosis. Maintained on anticoagulation. Chronic midline thoracic back pain 02/02/2025 Thoracogenic scoliosis of thoracolumbar region 0 02/02/2025 History of acute pancreatitis 02/02/2025 Overview (02/02/2025): History of necrotizing pancreatitis. Battles chronic repeat flares.b Vitamin D deficiency 02/02/2025 Assessment & Plan (02/05/2025 6:09 PM CDT): Repeat levels pending Orders: Vitamin D 25 hydroxy; Future Closed fracture of proximal phalanx of right mansfield d 10/14/2024 Hypertriglyceridemia 07/02/2022 Assessment & Plan (02/05/2025 6:09 PM CDT): Orders: Lipid panel; Future Chronic pancreatitis 07/02/2022 Assessment & Plan (02/05/2025 6:09 PM CDT): Orders: Comprehensive metabolic panel; Future Hemoglobin A1c; Future Albumin Creatinine Ratio, Urine; Future C-peptide; Future Ambulatory referral to Gastroenterology; Future Exocrine pancreatic insufficiency 07/02/2022 Assessment & Plan (02/05/2025 6:09 PM CDT): Orders: Comprehensive metabolic panel; Future Albumin Creatinine Ratio, Urine; Future Amylase; Future Lipase; Future Ambulatory referral to Gastroenterology; Future Creon 24,000-76,000 -120,000 unit capsule; Take 1 capsule by mouth 3 (three) times a day with meals Gastroesophageal reflux disease 07/02/2022 S/P hysterectomy 09/05/2021 Assessment & Plan (02/05/2025 6:09 PM CDT): S/p hysterectomy in 2021. Right ovary is retained. Anemia, deficiency 08/27/2021 Assessment & Plan (02/05/2025 6:09 PM CDT): Repeat levels pending Orders: CBC with auto differential; Future PTSD (post-traumatic stress disorder) 09/12/2009 Assessment & Plan (02/05/2025 6:09 PM CDT): PTSD managed with Wellbutrin and service dog. - Continue Wellbutrin 300 mg daily. Resolved Problems Problem Noted Date Diagnosed Date Resolved Date Injury of finger of right hand 10/14/2024 02/02/2025 Fall 10/14/2024 02/02/2025 Acute pancreatitis, unspecif ied complication status, unspecified pancreatitis type 10/06/2023 Absence of cervix 02/01/2023 02/02/2025 Pancreatitis, necrotizing 02/11/2022 Diarrhea 10/23/2021 02/02/2025 Overview (11/30/2024): Added automatically from request for surgery [id number] Menometrorrhagia 09/05/2021 02/02/2025 Acute pancreatitis without n ecrosis or infection, unspecified 07/13/2020 02/02/2025 PMDD (premenstrual dysphoric disorder) 11/22/1993 02/02/2025 Encounters Date Type Department Care Team Description 03/25/2025 Telephone [facility] Primary Care at [address] [address] Modesta Luong NP Med Refill 02/05/2025 Results Follow-Up [facility] Primary Care at [address] [address] Modesta Luong NP RPR Blood, HIV 1/2 Antibody plus p24 Antigen Blood, N. gonorrhoeae/C. trachomatis Amplification Urine, Additional followed-up results: 02/02/2025 2:15 PM CDT Lab [facility] Outpatient Lab at [address] [address] 02/02/2025 2:14 PM CDT - 02/02/2025 11:59 PM CDT Hospital Encounter [address] [address] Screen for STD (sexually transmitted disease); Need for hepatitis C screening test; Chronic pancreatitis, unspecified pancreatitis type (HCC); Anemia, deficiency; Exocrine pancreatic insufficiency; Vitamin D deficiency; Hypertriglyceridemia Discharge Disposition: Discharge to home or self care 02/02/2025 1:00 PM CDT Office Visit [facility] Primary Care at [address] [address] Modesta Luong NP Hypertriglyceridemia (Primary Dx); Chronic pancreatitis, unspecified pancreatitis type (HCC); Exocrine pancreatic insufficiency; Anemia, deficiency; Vitamin D deficiency; Screening mammogram for breast cancer; Need for hepatitis C screening test; Screen for STD (sexually transmitted disease); S/P hysterectomy; Splenic vein thrombosis; PTSD (post-traumatic stress disorder) from Last 3 Months Immunizations Immunization Administration Dates Next Due Influenza, Quadrivalent, Spl it, Preservative Free, Intramuscular 09/07/2022,07/21/2021 Medical History Medical History Date Comments Depression Gastric reflux Hypertension Hypercholesteremia Migraines Poor circulation Family History Medical History Relation Name Comments Arthritis Father Stroke Father Diabetes Mother Heart disease Mother Relation Name Status Comments Father Mother Social History Tobacco Use Types Packs/Day Years Used Date Smoking Tobacco: Former Cigarettes Tobacco Cessation:Counseling Given: Not Answered [facility] Utilities Answer Date Recorded In the past 12 months has [employer], [employer], or water [employer] threatened to shut off services in your home? No 10/07/2023 Social Connection and Isolation Panel Answer Date Recorded In a typical week, how many times do you talk on the phone with family, friends, or neighbors? More than three times a week 10/07/2023 How often do you get togethe r with friends or relatives? More than three times a week 10/07/2023 How often do you attend chur or adventism services? Never 10/07/2023 Do you belong to any clubs o r organizations such as baptist groups, unions, fraternal or athletic groups, or [...] medical care, and heating? Somewhat hard 10/07/2023 PHQ-2 Answer Date Recorded PHQ-2 Total Score (If total score is 3 or more points, staff should administer the PHQ-9) 2 02/02/2025 Hunger Vital Sign Answer Date Recorded Within [...] place to sleep or slept in a nursing home (including now)? No 10/07/2023 PHQ-9 Answer Date Recorded PHQ-9 Total Score 2 02/02/2025 Personal Safety Answer Date Recorded Have you ever been in or are you currently in a harmful physical or emotional relationship or is someone making you feel afraid or unsafe? 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 Gender Identity Female 08/08/2023 12:53 AM HVAC RESIDENTIAL SERVICE TECHNICIAN Sexual Orientation Straight 08/08/2023 12 :53 AM HVAC RESIDENTIAL SERVICE TECHNICIAN Obstetrics History Last Filed Vital Signs Vital Sign Reading Time Taken Comments Blood Pressure 102/68 02/02/2025 1:09 PM CDT Pulse 72 02/02/2025 1:09 PM CDT Temperature 36.3 C (97.4 F) 02/02/2025 1:09 PM CDT Respiratory Rate 21 11/30/2024 8:34 AM CDT Oxygen Saturation 99% 02/02/2025 1:09 PM CDT Inhaled Oxygen Concentration - - Weight 57.3 kg (126 lb 4.8 oz) 02/02/2025 1:09 P M CDT Height 167.6 cm (5' 6) 02/02/2025 1:09 PM CDT Body Mass Index 20.39 02/02/2025 1:09 PM CDT Plan of Treatment Health Maintenance Due Date Last Done Comments Breast Cancer Screening-Mammogram 1979 DTaP/Tdap/Td Vaccine (1 - Tdap) 11/18/1990 Regular Well Visit/Exam 18-64 11/18/1997 HPV Vaccines (1 - 3-dose SCDM series) 11/18/2006 Influenza Vaccine (#1) 2025 , 07/21/2021 Depression Screening 02/02/2026 02/02/2025, 02/02/2025 Colon Cancer Screening-Colonoscopy 11/14/2031 11/13/2021 Hepatitis C Screening Completed 02/02/2025 Hepatitis B Screening Discontinued Pneumococcal vaccine <65 Aged Out No longer eligible based on patient's age to complete this topic Varicella Vaccines Discontinued Procedures Procedure Name Priority Date/Time Associated Diagnosis Comments CT FACIAL BONES WO CONTRAST Schedule Routine, Read Routine (OP Routine) 02/03/2025 2:07 PM CDT ECG 12-LEAD Routine 02/03/2025 2:[address] HEAD WO CONTRAST Schedule Routine, Read Routine (OP Routine) 02/03/2025 2:04 PM CDT CBC WITH AUTO DIFFERENTIAL Routine 02/03/2025 2:01 PM CDT EGFR Routine 02/02/2025 2:14 PM CDT Chronic pancreatitis, unspecified pancreatitis type (HCC) Exocrine pancreatic insufficiency DIFFERENTIAL AUTO Routine 02/02/2025 2:1 4 PM CDT Anemia, deficiency COMPREHENSIVE METABOLIC PANEL Routine 02/02/2025 2:14 PM CDT Chronic pancreatitis, unspecified pancreatitis type (HCC) Exocrine pancreatic insufficiency LIPID PANEL Routine 02/02/2025 2:14 PM CDT Hypertriglyceridemi a HEMOGLOBIN A1C Routine 02/02/2025 2:14 PM CDT Chronic pancreatitis, unspecified pancreatitis type (HCC) ALBUMIN CREATININE RATIO, URINE Routine 02/02/2025 2:14 PM CDT Chronic pancreatitis, unspecified pancreatitis type (HCC) Exocrine pancreatic insufficiency VITAMIN D 25 HYDROXY Routine 02/02/2025 2:14 PM CDT Vitamin D deficiency AMYLASE Routine 02/02/2025 2:14 PM CDT Exocrine pancreatic insufficiency LIPASE Routine 02/02/2025 2:14 PM CDT Exocrine pancreatic insufficiency CBC WITH AUTO DIFFERENTIAL Routine 02/02/2025 2:14 PM CDT Anemia, deficiency C-PEPTIDE Routine 02/02/2025 2:14 PM CDT Chronic pancreatitis, unspecified pancreatitis type (HCC) HEPATITIS C ANTIBODY Routine 02/02/2025 2:14 PM CDT Need for hepatitis C screening test N. GONORRHOEAE/C. TRACHOMATIS AMPLIFICATION Routine 02/02/2025 2:14 PM CDT Screen for STD (sexually transmitted disease) HIV 1/2 ANTIBODY PLUS P24 ANTIGEN Routine 02/02/2025 2:14 PM CDT Screen for STD (sexually transmitted disease) RPR Routine 02/02/2025 2:14 PM CDT Screen for STD (sexually transmitted disease) SARS-COV-2 (COVID-19) RESULT INTERPRETATION Routine 01/14/2025 HCG, URINE, QUALITATIVE Routine 01/14/2025 INFLUENZA A AND B PCR Routine 01/14/2025 COMPREHENSIVE METABOLIC PANEL Routine 01/14/2025 RSV RNA, QL REAL TIME PCR Routine 01/14/2025 URINALYSIS, MACROSCOPIC Routine 01/14/2025 from Last 3 Months Results * CT Facial Bones WO Contrast (02/03/2025 2:07 PM CDT) Anatomical Region Laterality Modality Head and Neck N/A Computed Tomogra phy Historical Provider IMG CT PROCEDURES Final R esult * CT Head WO Contrast (02/03/2025 2:04 PM CDT) Anatomical Region Laterality Modality Head and Neck N/A Computed Tomogra phy Historical Provider IMG CT PROCEDURES Final R esult * ECG 12 lead (02/03/2025 2:04 PM CDT) Historical Provider ECG ORDERABLES Final Res ult EXTERNAL LAB * (ABNORMAL) CBC with auto differential (02/03/2025 2:01 PM CDT) SCRIBED WBC 6.8 3.8 - 9.9 K/cumm EXTERNAL LAB SCRIBED Hemoglobin 11.2(A) 11.9 - 15.5 g/dL EXTERNAL LAB SCRIBED Hematocrit 34.7(A) 38.9 - 50.3 % EXTERNAL LAB SCRIBED Platelets 308 150 - 400 K/cumm EXTERNAL LAB SCRIBED RBC 3.71(A) 3.90 - 5.20 M/cumm EXTERNAL LAB Blood Historical Provider MD LAB BLOOD ORDERABLES Kathia l Result EXTERNAL LAB * N. gonorrhoeae/C. trachomatis Amplification Urine (02/02/2025 2:14 PM CDT) Pathologist [facility] C. trachomatis Not Detected [facility] Comment:Testing performed by : [facility], [address] [place] [address]., [address] N. gonorrhoeae Not Detected SAKINA KEYES Comment: Interpretive Data This assay detects Chlamydia trachomatis and Neisseria gonorrhoeae by nucleic acid amplification testing (NAAT). This assay has been cleared by the [place] Food and Drug administration. The performance characteristics of this test have been verified by the [facility] Molecular Infectious Disease laboratory. The performance characteristics of this test have not been evaluated in individuals less than 14 years of age. Current Interpretive Data was last revised on 2023. Testing performed by: [facility], [address] [place]., [address] Urine (None) 02/02/2025 2:14 PM CDT 02/03/2025 12:46 PM CDT Modesta Luong NP LAB MICROBIOLOGY - GENERAL OR DERABLES Final Result Performing Organization Address City/[facility]/ZIP Co de Phone Number SAKINA [phone] [place] [address] [facility] * eGFR (02/02/2025 2:14 PM CDT) eGFR >90 >=60 mL/min/1. 73 m2 Comment: Interpretive Data Reference Interval Normal >/= 90 mL/min/1.73m2 Mildly decreased* 60 - 89 mL/min/1.73m2 Mildly to moderately decreased 45 - 59 mL/min/1.73m2 Moderately to severely decreased 30 - 44 mL/min/1.73m2 Severely decreased 15 - 29 mL/min/1.73m2 Kidney Failure < 15 mL/min/1.73m2 *Relative to young adult level Estimated glomerular filtration rate is determined by the 2020 CKD-EPI equation recommended by the National Kidney Foundation (A Unifying Approach to GFR Estimation: Recommendations of the NKF-ASK Task Force on Reassessing the Inclusion of Race in Diagnosing Kidney Disease, JASN 2020). The CKD-EPI equation should not be used for patients with unstable renal function and has not been validated in children and those over 70. Current interpretive data was last reviewed 2021. Blood 02/02/2025 2:14 PM CDT 02/02/2025 10:29 PM CDT us Modesta Luong NP LAB BLOOD ORDERABLES Final Re sult SAKINA [address] Department [place] [address] * Differential, auto (02/02/2025 2:14 PM CDT) Neutrophil abs 2.34 1.50 - 6.50 K/cumm Imm gran abs 0.00 0.00 - 0.10 K/cumm [facility] Lymphocyte abs 1.59 0.80 - 3.30 K/cumm [facility] Monocyte abs 0.61 0.20 - 0.80 K/cumm [facility] Eosinophil abs 0.13 0.00 - 0.50 K/cumm [facility] Basophil abs 0.04 0.00 - 0.10 K/cumm [facility] Neutrophil pct 49.6 % SAKINA Comment: Interpretive Data Percent cell count reference ranges are not reported, since discordance with absolute values may lead to misinterpretation of CBC data. Current Interpretive Data was last revised on 2017. Imm gran pct 0.0 % SAKINA Comment: Interpretive Data Percent cell count reference ranges are not reported, since discordance with absolute values may lead to misinterpretation of CBC data. Current Interpretive Data was last revised on 2017. Lymphocyte pct 33.8 % SAKINA Comment: Interpretive Data Percent cell count reference ranges are not reported, since discordance with absolute values may lead to misinterpretation of CBC data. Current Interpretive Data was last revised on 2017. Monocyte pct 13.0 % [facility] Comment: Interpretive Data Percent cell count reference ranges are not reported, since discordance with absolute values may lead to misinterpretation of CBC data. Current Interpretive Data was last revised on 2017. Eosinophil pct 2.8 % SAKINA Comment: Interpretive Data Percent cell count reference ranges are not reported, since discordance with absolute values may lead to misinterpretation of CBC data. Current Interpretive Data was last revised on 2017. Basophil pct 0.8 % [facility] Comment: Interpretive Data Percent cell count reference ranges are not reported, since discordance with absolute values may lead to misinterpretation of CBC data. Current Interpretive Data was last revised on 2017. Blood 02/02/2025 2:14 PM CDT 02/02/2025 8:46 PM CDT Modesta Luong NP LAB BLOOD ORDERABLES Final Re sult Performing Organization Address [facility] Co de Phone Number SAKINA KEYES [phone] [place] [address] * HIV 1/2 Antibody plus p24 Antigen Blood (02/02/2025 2:14 PM CDT) Pathologist [facility] HIV 1/2 ab + p24 ag Nonreactive Nonreactive Comment: Nonreactive for HIV-1 antigen and HIV-1/HIV-2 antibodies. No laboratory evidence of HIV infection. If acute HIV infection is suspected, consider testing for HIV-1 RNA. Blood 02/02/2025 2:14 PM CDT 02/02/2025 8:46 PM CDT Modesta Luong NP LAB MICROBIOLOGY - GENERAL OR DERABLES Final Result Performing Organization Address City/[facility] Co de Phone Number SAKINA KEYES [phone] Department [employer] [address] * (ABNORMAL) CBC with auto differential (02/02/2025 2:14 PM CDT) Pathologist [facility] WBC 4.71 3.80 - 9.90 K/cumm Hgb 12.5 11.9 - 15.5 g/dL [facility] Hct 41.2 35.6 - 45.5 % [facility] Plt 230 150 - 400 K/cumm [facility] MPV 12.0 9.1 - 12.3 fL [facility] RBC 4.08 3.90 - 5.20 M/cumm [facility] MCV 101.0(H) 81.3 - 96.4 fL [facility] MCH 30.6 27.1 - 33.3 pg [facility] MCHC 30.3(L) 32.3 - 35.7 g/dL [facility] RDW CV 13.5 11.1 - 14.9 % [facility] RDW SD 50.6(H) 35.7 - 48.1 fL [facility] NRBC abs 0.00 0.00 - 0.01 K/cumm [facility] Blood 02/02/2025 2:14 PM CDT 02/02/2025 8:46 PM CDT Modesta Luong ARMATURE BANDER LAB BLOOD ORDERABLES Final Re sult Performing Organization Address [facility] Phone Number SAKINA [phone] Department of Laboratories [place], [place] [id number] * Hepatitis C antibody Blood (02/02/2025 2:14 PM CDT) Hep C Ab Nonreactive Nonreactive Comment: Interpretive Data Nonreactive: Antibodies to HCV not detected. Does NOT exclude the possibility of recent exposure to HCV. Equivocal: Equivocal for HCV antibodies. Supplemental molecular testing will be automatically performed to determine infection status in accordance with current CDC screening recommendations. Reactive: Positive for HCV antibodies. This may represent current or past HCV infection. Supplemental molecular testing will be automatically performed to determine current infection status in accordance with current CDC screening recommendations. Interpretive data was last revised on 2019. Blood 02/02/2025 2:14 PM CDT 02/02/2025 8:46 PM CDT Modesta Luong NP LAB MICROBIOLOGY - GENERAL OR DERABLES Final Result Performing Organization Address [facility]/ZIP Co de Phone Number SAKINA KEYES [phone] [place] [address] * Albumin Creatinine Ratio, Urine (02/02/2025 2:14 PM CDT) Pathologist [facility] Albumin Ur <12.0 mg/L Comment: Interpretive Data No reference range established. Current interpretive data was last revised 2018. Creatinine Ur 7.3 mg/dL SAKINA KEYES Comment: Interpretive Data No reference range established. Current interpretive data was last revised 2018. Albumin Creatinine Ratio, Ur See Comment 1 - 29 SAKINA Comment:Unable to calculate Urine 02/02/2025 2:14 PM CDT 02/02/2025 8:46 PM CDT Modesta Luong ARMATURE BANDER LAB URINE ORDERABLES Final Re sult Performing Organization Address [facility] Co de Phone Number [facility] KEYES [phone] [place] [address] * Vitamin D 25 hydroxy (02/02/2025 2:14 PM CDT) [facility] Vitamin D 25-OH 72 30 - 80 ng/mL Blood 02/02/2025 2:14 PM CDT 02/02/2025 8:46 PM CDT Modesta Luong ARMATURE BANDER LAB BLOOD ORDERABLES Final Re sult Performing Organization Address [facility] Co de Phone Number RICARDOSHIRLEY KEYES [phone] [place] [address] * (ABNORMAL) C-peptide (02/02/2025 2:14 PM CDT) Pathologist [facility] C-peptide 4.46(H) 1.10 - 4.40 ng/mL Comment:Testing performed by : [facility], [address] [facility], [place]., [address] Blood 02/02/2025 2:14 PM CDT 02/03/2025 10:14 AM CDT Modesta Luong NP LAB BLOOD ORDERABLES Final Re sult Performing Organization Address [facility] Co de Phone Number SAKINA [phone] [place] [address] * RPR Blood (02/02/2025 2:14 PM CDT) Pathologist [facility] RPR Nonreactive Nonreactive Blood 02/02/2025 2:14 PM CDT 02/02/2025 8:46 PM CDT Modesta Luong ARMATURE BANDER LAB MICROBIOLOGY - GENERAL OR DERABLES Final Result Performing Organization Address [facility] Co de Phone Number SAKINA [phone] [address] [facility] [place] [address] * Lipase (02/02/2025 2:14 PM CDT) Pathologist [facility] Lipase 40 10 - 99 Units/L Blood 02/02/2025 2:14 PM CDT 02/02/2025 8:46 PM CDT Modesta Ag THRASHER LAB BLOOD ORDERABLES Final Re sult Performing Organization Address [facility] Co de Phone Number [facility] [phone] [address] [facility] [place] [address] * Hemoglobin A1c (02/02/2025 2:14 PM CDT) Pathologist [facility] Hgb A1C 5.1 4.0 - 5.6 % Estimated Average Glucose 100 mg/dL SAKINA Comment: The ADA recommends reporting an estimated Average Glucose (eAG) with all Hemoglobin A1c results using the equation derived from a study of 507 normal and diabetic adults. Minority populations were underrepresented and children were not included. (Diabetes Care 31:5268-0257, 2008). The eAG is not equivalent to a fasting glucose. Blood 02/02/2025 2:14 PM CDT 02/02/2025 8:46 PM CDT Modesta Luong ARMATURE BANDER LAB BLOOD ORDERABLES Final Re sult Performing Organization Address City/[facility]/ZIP Co de Phone Number SAKINA KEYES [phone] [address] * Amylase (02/02/2025 2:14 PM CDT) Amylase 58 30 - 99 Units/L Blood 02/02/2025 2:14 PM CDT 02/02/2025 8:46 PM CDT Modesta Luong ARMATURE BANDER LAB BLOOD ORDERABLES Final Re sult Performing Organization Address [facility] [facility] Co de Phone Number SAKINA KEYES [id number] [place] [address] * Lipid panel (02/02/2025 2:14 PM CDT) Cholesterol 190 30 - 199 mg/dL Comment: Interpretive Data Ages < or = 19 years Acceptable: <170 mg/dL Borderline high: 170-199 mg/dL High: >or= 200 mg/dL Ages > or = 20 years Desirable: <200 mg/dL Borderline high: 200-239 mg/dL High: >or= 240 mg/dL Literature References: 1. Expert Panel on Integrated Guidelines for Cardiovascular Health and Risk Reduction in Children and Adolescents. Pediatrics 2011;128:S213 2. NCEP Expert Panel. Circulation 2004;110:227 Current Interpretive Data was last revised on 2018. Triglycerides 138 <=149 mg/dL SAKINA KEYES Comment: Interpretive Data Ages < or = 9 years Acceptable: <75 mg/dL Borderline high: 75-99 mg/dL High: >or= 100 mg/dL Ages 10 to 20 years Acceptable: <90 mg/dL Borderline high: 90-129 mg/dL High: >or= 130 mg/dL Ages > or = 20 years Desirable: <150 mg/dL Borderline high: 150-199 mg/dL High: 200-499 mg/dL Very high: >or= 499 mg/dL Literature References: 1. Expert Panel on Integrated Guidelines for Cardiovascular Health and Risk Reduction in Children and Adolescents. Pediatrics 2011;128:S213 2. NCEP Expert Panel. Circulation 2004;110:227 Current Interpretive Data was last revised on 2018. HDL 62 >=40 mg/dL SAKINA KEYES Comment: Interpretive Data Ages < or = 19 years Acceptable: >45 mg/dL Borderline low: 40-45 mg/dL Low: <40 mg/dL Ages > or = 20 years Desirable: >or= 60 mg/dL Low: <40 mg/dL Literature References: 1. Expert Panel on Integrated Guidelines for Cardiovascular Health and Risk Reduction in Children and Adolescents. Pediatrics 2011;128:S213 2. NCEP Expert Panel. Circulation 2004;110:227 Current Interpretive Data was last revised on 2018. LDL, calculated 104 <=129 mg/dL SAKINA KEYES Comment: Interpretive Data Ages < or = 19 years Acceptable: <110 mg/dL Borderline high: 110-129 mg/dL High: >or= 130 mg/dL Ages > or = 20 years Optimal: <100 mg/dL Near optimal: 100-129 mg/dL Borderline high: 130-159 mg/dL High: >160 mg/dL Calculated using the Ricky LDL-C estimating equation. This equation was implemented on 2024. Prior to this date LDL-C was estimated using the Friedewald equation. Literature References: 1. Expert Panel on Integrated Guidelines for Cardiovascular Health and Risk Reduction in Children and Adolescents. Pediatrics 2011;128:S213 2. NCEP Expert Panel. Circulation 2004;110:227 3. Ricky Browning al. JEFFREY Cardiol. 2019November 12;5(5):540-548. doi: [email or web address] Current Interpretive Data was last revised on 2024. Non-HDL Cholesterol 128 mg/dL SAKINA KEYES Comment: Interpretive Data Ages < or = 19 years Acceptable: <120 mg/dL Borderline high: 120-144 mg/dL High: >145 mg/dL Ages > or = 20 years When triglycerides are >200 mg/dL, Non-HDL cholesterol is a secondary target of therapy with treatment goals that are 30 mg/dL greater than the LDL cholesterol target. Literature References: 1. Expert Panel on Integrated Guidelines for Cardiovascular Health and Risk Reduction in Children and Adolescents. Pediatrics 2011;128:S213 2. NCEP Expert Panel. Circulation 2004;110:227 Current Interpretive Data was last revised on 2018. Chol/HDL ratio 3 [facility] Blood 02/02/2025 2:14 PM CDT 02/02/2025 8:46 PM CDT us Modestavishnu Luong NP LAB BLOOD ORDERABLES Final Re sult CERNER [address] [place] [address] * (ABNORMAL) Comprehensive metabolic panel (02/02/2025 2:14 PM CDT) Sodium 138 135 - 145 mmol/L Potassium, pl 3.9 3.3 - 4.9 mmol/L [facility] Chloride 100 97 - 110 mmol/L [facility] CO2 24 22 - 32 mmol/L [facility] Anion gap 14 2 - 15 mmol/L [facility] BUN 13 6 - 25 mg/dL [facility] Creatinine 0.59(L) 0.60 - 1.10 mg/dL [facility] Glucose 66(L) 70 - 199 mg/dL [facility] Comment: Interpretive Data Fasting glucose >/= 126 mg/dl is diagnostic for diabetes. Fasting is defined as no caloric intake for at least 8 hours. Fasting glucose between 100 mg/dl to 125 mg/dl is diagnostic of prediabetes. In a patient with classic symptoms of hyperglycemia or hyperglycemic crisis, a random glucose >/= 200 mg/dl is diagnostic for diabetes. In the absence of unequivocal hyperglycemia, results should be confirmed by repeat testing. The classification and Diagnosis of Diabetes Diabetes Care 2021; 46: S19-S40. Current interpretive data was last revised 2022. Calcium 10.0 8.5 - 10.3 mg/dL [facility] Bilirubin, total 0.4 0.1 - 1.2 mg/dL [facility] Protein, pl 8.3 6.5 - 8.5 g/dL [facility] Albumin 4.7 3.5 - 5.0 g/dL [facility] Alk phos 70 40 - 130 Units/L [facility] ALT 22 7 - 45 Units/L [facility] AST 27 10 - 45 Units/L [facility] Blood 02/02/2025 2:14 PM CDT 02/02/2025 8:46 PM CDT Result [facility] Modesta Luong ARMATURE BANDER LAB BLOOD ORDERABLES Final Re sult Performing Organization Address [facility] Co de Phone Number SAKINA KEYES [address] [place] [address] * RSV RNA, QL REAL TIME PCR (01/14/2025) 01/14/2025 Result [facility] Provider MD LAB MICROBIOLOGY - GENERA L ORDERABLES Edited Result - Final Performing Organization Address [facility] Co de Phone Number EXTERNAL LAB * SARS-CoV-2 (COVID-19) RESULT INTERPRETATION (01/14/2025) 01/14/2025 Result [facility] Provider MD LAB BLOOD ORDERABLES Kathia l Result Performing Organization Address [facility] Co de Phone Number EXTERNAL LAB * Influenza A and B PCR (01/14/2025) 01/14/2025 Result [facility] Provider MD LAB BLOOD ORDERABLES Kathia l Result Performing Organization Address [facility] Co de Phone Number EXTERNAL LAB * Urinalysis, macroscopic Urine (01/14/2025) Urine 01/14/2025 Result [facility] Provider MD LAB MICROBIOLOGY - GENERA L ORDERABLES Final Result Performing Organization Address [facility] Co de Phone Number EXTERNAL LAB * hCG, urine, qualitative (01/14/2025) Urine 01/14/2025 Result [facility] Provider MD LAB URINE ORDERABLES Kathia l Result EXTERNAL LAB * Comprehensive metabolic panel (01/14/2025) Blood 01/14/2025 us Historical Provider LAB BLOOD ORDERABLES Kathia l Result EXTERNAL LAB from Last 3 Months Insurance [facility] Advance Directives For more information, please contact: [phone] * Full Code (Latest Code Status on File) Date Activated Date Inactivated Comments 10/06/2023 8:48 PM 10/09/2023 7:15 PM Care Teams Jumpbasting Facing Baster Relationship Specialty Start Date End Date Modesta Luong NP [address] [place] [address] PCP - General Internal Medicine 02/02/25 Angela Dos Santos PA [address] [place] [id number] Physician Customs Compliance Manager 06/05/22 Helen Calabrese [employer]URE BANDER [facility] JOSE MERLOS [address] Nurse Practitioner Family Practice 10/09/23
[2025-04-12 17:00] LABS: Alanine Aminotransferase 26 U/L (6-35); Albumin Level 5.0 g/dL (3.5-5.1); Alkaline Phosphatase 60 U/L (38-126); Anion Gap 10 mmol/L (4-12); Aspartate Amino Transferase 34 U/L (14-36); Bilirubin,Total 0.9 mg/dL (0.2-1.3); Blood Urea Nitrogen 16 mg/dL (7-17); Calcium 9.7 mg/dL (8.4-10.2); Carbon Dioxide 23 mmol/L (22-30); Chloride 99 mmol/L (98-107); Estimated CRCL calculation 82 ml/min; Estimated Glomerular Filt Rate > 60; Glucose 132 mg/dL (65-110); Lipase 785 U/L (23-300); Potassium 4.0 mmol/L (3.4-5.0); Sodium 132 mmol/L (137-145); Total Protein 8.8 g/dL (6.3-8.2)
[2025-04-12] MEDS: LACTATED RINGERS 1,000 ML 999 ML IV CONT (17:03)
[2025-04-12] MEDS: PROMETHAZINE HCL 25 MG/ML AMPUL 12.5 MG IV PUSH ×2 (17:05→22:55)
[2025-04-12] MEDS: MORPHINE SULFATE (*CRX) 4 MG/ML INJ IV PUSH ×3 (17:06→22:52)
[2025-04-12 17:07] LABS: Add Urine Microscopic? YES; Appearance Urine Cloudy (Clear); Glucose Urine UA Negative (Negative); Leukocyte Esterase Ur 1+ LEU/UL (Negative); Need Manual Microscopic Reviewed; Nitrate Urine Negative (Negative); Non Pathogenic Casts >20; Specific Grav Ur 1.022 (1.001-1.035)
[2025-04-12] MEDS: LACTATED RINGERS 1,000 ML 125 ML IV CONT (18:33)
--- NOTE | 2025-04-12 19:34 | PM.IMHP ---
H&P: HPI History of Present Illness Date/Time: 04/12/25 19:34 Chief Complaint: Abdominal pain Narrative: This is a 44-year-old female patient who has a history of chronic pancreatitis. The patient stated that she went [place] vacation in [place] some fast food on the vacation and developed some abdominal pain. She stated that this pain started approximately 3 days ago in her right upper quadrant all the way to her right lower back. She stated that she has been vomiting and has not been able to keep down any liquids. She stated that she took a Evergreen at home this morning with it did not help with her discomfort. She self reports a temperature of 100.5?. She denies any urinary symptoms. Abdominal CT was read as the following1. Minimal acute pancreatitis. 2. Stigmata of chronic pancreatitis, including chronic splenic vein thrombosis. Her white count is 11.7. Neutrophil percentage 79.8 percentage. Her sodium was 132 and her glucose was 132. Her lipase is 785. Urinalysis urine was cloudy with 1+ urine leukocyte esterase, 1+ urine bilirubin, and wbc's 6-10. The patient was started on lactated Ringer's, given Phenergan, and morphine. The patient is being admitted to observation status on the date of service of 04/12/2025. Review of Systems Constitutional: Constitutional: Reports as per HPI and Reports no additional constitutional complaints Eyes: Eyes: Reports as per HPI and Reports no additional eye complaints ENT: Reports system reviewed and no additional complaints, except as documented and Reports Normal hearing present Cardiovascular: Cardiovascular: Reports no additional cardiovascular complaints Respiratory: Respiratory: Reports as per HPI and Reports no additional respiratory complaints Gastrointestinal: Gastrointestinal: Reports as per HPI and Reports no additional gastrointestinal complaints Genitourinary: Genitourinary: Reports no additional female genitourinary complaints Musculoskeletal: Musculoskeletal: Reports no additional musculoskeletal complaints Integumentary/Breasts: Skin/Breast: Reports system reviewed and no additional complaints, except as docu Neurologic: Reports system reviewed and no additional complaints, except as documented and Reports Normal hearing present Psychiatric: Psychiatric: Reports no additional psychiatric complaints and Reports as per HPI Hematologic/Lymphatic: Hematologic/Lymphatic: Reports no additional hematologic/lymphatic complaints Allergic/Immunologic: Allergic/Immunologic: Reports no additional allergic/immunologic complaints [facility] Past Medical History Medical History (Updated 04/12/25 @ 19:44 by Yesica Machado, KODI) SBO (small bowel obstruction) DVT (deep venous thrombosis) PTSD (post-traumatic stress disorder) Hypertension Hyperlipidemia TBI (traumatic brain injury) Acute on chronic pancreatitis Surgical History Surgical History (Updated 04/12/25 @ 19:44 by Yesica Machado APRN) History of facial surgery H/O section several History of adenectomy H/O hysterectomy for benign disease Family History Family History (Updated 04/12/25 @ 19:37 by Yesica Machado APRN) Other Adopted Social History Social History (Updated 04/12/25 @ 19:42 by Yesica Machado APRN) Social History: she has one biological child . she has a significant other . her mother is the poa. she is disabled. code status :full code Smoking status: Former smoker Tobacco type: cigarettes Alcohol intake: current Drinks per week: 1 Substance use: current Substance use type: marijuana Last use: 01/27/2025 Do You Feel Safe in your Home?: Yes Lack of Transportation: YES Lack of Food: Never True Current Housing: I Have Housing Concerned About Future Housing: YES Difficulty Paying Gas/Electric Bills: YES Difficulty Paying for Meds: No Currently Unemployed: No Education: Associate Degree Difficulty w/ Childcare or Family Care: No Spiritual care concerns: No Meds Home Medications and Allergies Home Medications ?Medication ?Instructions ?Recorded ?Confirmed ?Type bupropion HCl 150 mg 24 hr tablet, 150 mg PO BID 08/24/19 01/28/25 History extended release (Wellbutrin XL) fenofibrate 160 mg tablet 160 mg PO DAILY 08/24/19 01/28/25 History albuterol sulfate 90 mcg/actuation 2 puff inhalation BID PRN 01/28/25 01/28/25 History aerosol inhaler shortness of breath or wheezing ergocalciferol (vitamin D2) 1,250 50,000 unit PO WEEKLY 01/28/25 01/28/25 History mcg (50,000 unit) capsule hydroxyzine HCl 50 mg tablet 50 mg PO BID 01/28/25 01/28/25 History rivaroxaban 20 mg tablet (Xarelto) 20 mg PO DAILY 01/28/25 01/28/25 History lactulose 10 gram/15 mL oral 20 g (30 mL) PO Q6HR PRN 01/29/25 Rx solution constipation #237 mL nifedipine 30 mg tablet,extended 30 mg PO QAM #30 tabs 01/29/25 Rx release 24 hr (Procardia XL) sennosides 8.6 mg-docusate sodium 1 tab PO BID #60 tabs 01/29/25 Rx 50 mg tablet (Senokot-S) Allergies Allergy/AdvReac Type Severity Reaction Status Date / Time fluoxetine (From Prozac) Allergy Mild Hives Verified 04/12/25 16:59 Gadolinium-Containing Allergy Mild Sneezing Verified 04/12/25 16:59 Contrast Medi latex Allergy Rash Verified 04/12/25 16:59 ondansetron (From Zofran) Allergy hives Verified 04/12/25 16:59 Penicillins Allergy Hives Verified 04/12/25 16:59 Vital Signs Vital Signs - 24 hr 04/12/25 16:24 04/12/25 16:36 04/12/25 16:36 Temperature 98.1 F Pulse Rate 92 65 75 Respiratory Rate 18 13 16 Blood Pressure 126/100 H 135/96 H 135/96 H Pulse Oximetry 97 98 99 Oxygen Delivery Room Air 04/12/25 17:13 04/12/25 17:33 04/12/25 18:06 Temperature Pulse Rate 79 66 Respiratory Rate 15 15 Blood Pressure 171/82 H 139/97 H 162/97 H Pulse Oximetry 96 96 99 Oxygen Delivery Exam Const: General: cooperative, healthy appearing, comfortable, no acute distress, well developed, awake, Physically active, average body habitus and well nourished Nutritional Appearance: average body habitus and well nourished Orientation/consciousness: oriented to person, oriented to place, oriented to time and patient oriented x3 Limitations: no limitations HENMT: Head: normal to inspection, No palpable skull fracture present, normocephalic and atraumatic Ears: hearing grossly normal bilaterally and external ears normal Face/Nose/Sinus: Normal external nose present and Normal nares present Mouth: Yes Normal oral and palatal mucosa present Throat: posterior oropharynx normal Eyes: General: appearance normal, both eyes and all related structures Alignment and Position: alignment normal Periorbital: periorbital findings normal Eyelids: eyelids normal Neck: Neck: normal visual inspection, full ROM, no lymphadenopathy, trachea midline and supple Chest: Chest palpation & inspection: normal inspection of the chest Resp: Effort & Inspection: normal respiratory effort Auscultation: clear to auscultation bilaterally Percussion: percussion normal Cardio: Palpation: normal PMI Rate: regular rate Rhythm: regular rhythm Heart sounds: S1 normal heart sound present and S2 normal heart sound present Peripheral pulses: Peripheral pulses 2+ throughout GI: Inspection: normal to inspection Percussion: Yes normal to percussion Auscultation: normal bowel sounds Rectal Exam: deferred Other: Tenderness to right upper quadrant with light and deep palpation : General: Yes no CVA tenderness Back/Spine/Pelvis: Back: no CVA tenderness Cervical Spine: cervical ROM normal Skin: General skin exam: normal color Lesions: no lesions Rashes: no rashes Trauma: no lacerations or abrasions Wounds: no wounds Hair: normal Nails: normal Neuro: General: oriented to person, oriented to place, oriented to time and patient oriented x3 Cranial nerves: Yes Equal, round and reactive pupils present and Yes Normal hearing present Cognition (Neuro): normal cognition Speech: normal speech Motor exam (neuro): 5/5 motor strength present throughout Sensory Exam: normal sensation Extrem: General: normal to inspection Right upper extremity: normal to inspection and shoulder/upper arm Left upper extremity: normal to inspection and shoulder/upper arm Right lower extremity: normal to inspection Left lower extremity: normal to inspection Psych: Appearance: grossly normal Mental Status: mental status grossly normal Speech and movement: Normal speech and movement present Affect: normal affect Attitude: cooperative Thought process: Normal thought process present Thought content: Yes Normal thought content present Insight: Good insight present (Psych) Judgement: Good judgement present (Psych) H&P: Results Labs Labs: Short CBC 04/12/25 Range/Units 16:37 WBC 11.7 H (4.5-10.0) K/mm3 Hgb 12.4 (12.0-15.0) g/dL Hct 37.4 (37.0-47.0) % Plt Count 344 (150-375) k/mm3 BMP 04/12/25 16:37 Sodium 132 L Potassium 4.0 Chloride 99 Carbon Dioxide 23 BUN 16 Creatinine 0.65 L Glucose 132 H Calcium 9.7 Liver Function 04/12/25 Range/Units 16:37 Total Bilirubin 0.9 (0.2-1.3) mg/dL AST 34 (14-36) U/L ALT 26 (6-35) U/L Alkaline Phosphatase 60 (38-126) U/L Albumin 5.0 (3.5-5.1) g/dL Urine 04/12/25 Range/Units 16:41 Urine Color Dark yellow (Yellow) Urine Appearance Cloudy H (Clear) Urine pH 5.0 (5.0-9.0) Ur Specific [place] 1.022 (1.001-1.035) Urine Protein Trace (Negative) mg/dL Urine Glucose (UA) Negative (Negative) mg/dL Imaging CT scan - abdomen: Radiologist's impression: Impressions Abdomen/Pelvis CT 04/12/25 17:58 IMPRESSION: 1. Minimal acute pancreatitis. 2. Stigmata of chronic pancreatitis, including chronic splenic vein thrombosis. Assessment and Plan Assessment and plan (1) Acute on chronic pancreatitis: Code(s): K85.90 - Acute pancreatitis without necrosis or infection, unspecified; K86.1 - Other chronic pancreatitis Status: Acute Assessment and Plan: -daily lipase levels -current lipase is 785. -CT was read as minimal acute pancreatitis. Stigmata of chronic pancreatitis, including chronic splenic vein thrombosis. The patient is chronically on anticoagulation Xarelto for DVT as well. -continue with morphine for pain management. -p.r.n. Benadryl does the morphine may cause some itching. She also requested for some Vistaril but do not give the 2 together. -advanced diet as tolerated. -continue with lactated Ringer's for now. -continue with antiemetic (2) Hyperlipidemia: Code(s): E78.5 - Hyperlipidemia, unspecified Status: Acute Assessment and Plan: -check lipid profile -continue with home medication when her diet is advanced. (3) Hypertension: Code(s): I10 - Essential (primary) hypertension Status: Acute Assessment and Plan: -patient is NPO at this time and her home medications are on hold. -resume home medications when patient is tolerating a diet. -p.r.n. hydralazine with parameters. (4) PTSD (post-traumatic stress disorder): Code(s): F43.10 - Post-traumatic stress disorder, unspecified Status: Acute Assessment and Plan: -resume home medications when patient is tolerating a diet. Quality VTE Prophylaxis VTE prophylaxis: pharmacologic ordered
--- NOTE | 2025-04-13 00:39 | ADMGEN ---
This patient, Steffanie Ruvalcaba, was admitted to [facility] Surg Room 314-01. Patient/family oriented to hospital policies and general routines including ID bracelet, bed and alarms, visiting hours, pain management, procedures, bathroom and other care routines, personal items, smoking policy, room service/diet, and visiting hours. Information on how to activate the Rapid Response Team has been discussed. Patient/Family are encouraged to report perceived risks to care and to ask questions if they do not understand what they are told or what they should do.
[2025-04-13 01:46] VITALS: BP 186/98
[2025-04-13] MEDS: MORPHINE SULFATE (*CRX) 4 MG/ML INJ IV PUSH ×7 (01:47→21:45)
[2025-04-13 02:23] VITALS: BP 162/82
[2025-04-13] MEDS: METOCLOPRAMIDE HCL INJ 10 MG/2 ML VIAL IV PUSH (02:33)
[2025-04-13] MEDS: LACTATED RINGERS 1,000 ML 125 ML IV CONT ×3 (02:36→20:21)
[2025-04-13 05:38] VITALS: BP 150/86; PULSE 101; RESP 16; TEMP 36.6; O2SAT 98
[2025-04-13] MEDS: PROCHLORPERAZINE EDISYLATE 10 MG/2 ML VIAL IV PUSH (05:53)
[2025-04-13 06:00] LABS: Hematocrit 39.0 % (37.0-47.0); Hemoglobin 12.5 g/dL (12.0-15.0); Immature Granulocyte Percent A 0.6 % (0-0.5); Lymphocytes Absolute Auto 0.92 K/mm3 (0.9-3.2); Mean Corpuscular HGB Conc 32.1 g/dl (32-36); Mean Corpuscular Hemoglobin 29.3 pg (26-34); Mean Corpuscular Volume 91.5 fl (80-100); Nucleated Red Blood Cells Absolute Auto 0.000 K/mm3 (0.0-0.012); Nucleated Red Blood Cells Perc 0.0 % (0.0-0.2); Platelet Count Result 277 k/mm3 (150-375); Red Blood Count 4.26 M/mm3 (4.2-5.4); White Blood Count 10.6 K/mm3 (4.5-10.0)
[2025-04-13 06:37] LABS: Alanine Aminotransferase 21 U/L (6-35); Albumin Level 4.8 g/dL (3.5-5.1); Alkaline Phosphatase 59 U/L (38-126); Anion Gap 9 mmol/L (4-12); Aspartate Amino Transferase 33 U/L (14-36); Bilirubin,Total 0.8 mg/dL (0.2-1.3); Blood Urea Nitrogen 8 mg/dL (7-17); Calcium 9.4 mg/dL (8.4-10.2); Carbon Dioxide 28 mmol/L (22-30); Chloride 102 mmol/L (98-107); Cholesterol 214 mg/dL (0-200); Estimated CRCL calculation 84 ml/min; Estimated Glomerular Filt Rate > 60; Glucose 128 mg/dL (65-110); HDL Direct 108 mg/dL; Lipase 401 U/L (23-300); Potassium 3.6 mmol/L (3.4-5.0); Sodium 139 mmol/L (137-145); Total Protein 8.4 g/dL (6.3-8.2); Triglycerides 72 mg/dL (<150)
--- NOTE | 2025-04-13 13:09 | P.PNIM_ITS ---
Progress Note: A&P Assessment and Plan (1) Acute on chronic pancreatitis: Code(s): K85.90 - Acute pancreatitis without necrosis or infection, unspecified; K86.1 - Other chronic pancreatitis Status: Acute Assessment and Plan: Patient with chronic pancreatitis here for abdominal pain. Lipase was 785. CT Abd/Pelvis with contrast showing minimal acute pancreatitis and stigmata of chronic pancreatitis, including chronic splenic vein thrombosis. The patient is chronically on anticoagulation Xarelto for DVT as well. NPO status. IVFs. Narcotics for pain control. Start ice chips. Probably advance dist tomorrow. (2) Hyperlipidemia: Code(s): E78.5 - Hyperlipidemia, unspecified Status: Acute Assessment and Plan: TG 72. TC 214. LDL 85 and HDL 108. Continue to hold fenofibrate at this time but resume when able (3) Hypertension: Code(s): I10 - Essential (primary) hypertension Status: Acute Assessment and Plan: Blood pressure was reviewed. Will resume Nifedipine. Continue p.r.n. hydralazine with parameters. (4) PTSD (post-traumatic stress disorder): Code(s): F43.10 - Post-traumatic stress disorder, unspecified Status: Acute Assessment and Plan: Mood stable. Will resume Wellbutrin Plan DVT Prophylaxis - Xarelto Code status - full Subjective Date/time seen: 04/13/25 13:09 Interval history: 44yo female with chronic pancreatitis here for abdominal pain. Abdominal pain is better. No flatus or bowel movements since admission. She complains of back pain but this is chronic when she has acute flares of her pancreatitis. No dysuria or hematuria. She still feels bloated. She is requesting ice chips and to resume her SenoKot Exam Narrative: AF 97.7 178/88 83 16 100% ra Gen - thin female in NARD Chest - CTA bilaterally, nml RR CV - RRR S1/S2 Abd - Soft, minimal tenderness, +BS Back - No CVA tenderness Ext - No pedal edema Psych - Nml mood and affect Skin - Warm and dry Objective Data Vital Signs Vital Signs: Vital Signs - 24 hr 04/12/25 16:24 04/12/25 16:36 04/12/25 16:36 Temperature 98.1 F Pulse Rate 92 65 75 Respiratory Rate 18 13 16 Blood Pressure 126/100 H 135/96 H 135/96 H Pulse Oximetry 97 98 99 Oxygen Delivery Room Air 04/12/25 17:13 04/12/25 17:33 04/12/25 18:06 Temperature Pulse Rate 79 66 Respiratory Rate 15 15 Blood Pressure 171/82 H 139/97 H 162/97 H Pulse Oximetry 96 96 99 Oxygen Delivery 04/12/25 19:50 04/12/25 20:52 04/12/25 21:09 Temperature 97.7 F Pulse Rate 69 69 50 L Respiratory Rate 16 16 16 Blood Pressure 143/89 H 143/89 H 178/96 H Pulse Oximetry 100 100 98 Oxygen Delivery 04/12/25 22:49 04/13/25 01:46 04/13/25 02:23 Temperature Pulse Rate Respiratory Rate Blood Pressure 186/98 H 162/82 H Pulse Oximetry Oxygen Delivery Room Air 04/13/25 05:38 04/13/25 09:30 Temperature 98 F Pulse Rate 101 H Respiratory Rate 16 Blood Pressure 150/86 H Pulse Oximetry 98 Oxygen Delivery Room Air Intake/Output Intake/Output: Intake & Output 04/10/25 04/11/25 04/12/25 04/13/25 23:59 23:59 23:59 23:59 Intake Total 1000 2100 Balance 1000 2100 Meds/Results Medications: Active Medications Generic Name Dose Route Start Last Admin Trade Name Freq PRN Reason Stop Dose Admin Albuterol 2 puff 04/13/25 00:04 Albuterol Sulfate (*Sp) Aerosol 1 Puff INHALATION Q6H PRN Shortness Of Breath Or Wheezing Diphenhydramine HCl 25 mg 04/12/25 20:28 Diphenhydramine Hcl Inj 50 Mg/Ml Vial IV PUSH Q4H PRN Itching Hydralazine HCl 10 mg 04/13/25 00:05 Hydralazine Hcl 20 Mg/Ml Vial IV PUSH Q8H PRN Blood Pressure - High Hydroxyzine HCl 25 mg 04/12/25 20:27 04/12/25 23:08 Hydroxyzine Hcl 50 Mg/Ml Vial IM 25 mg Q4H PRN Administration Itching Lactated Ringer's 1,000 mls @ 125 mls/hr 04/12/25 18:25 04/13/25 12:10 Lr - Lactated Ringers Iv IV CONT 125 mls/hr .Q8H ALETHA Administration Morphine Sulfate 4 mg 04/12/25 18:24 04/13/25 12:15 Morphine Sulfate (*Crx) 4 Mg/Ml Inj IV PUSH 4 mg Q2H PRN Administration Pain Rated 7-10 Prochlorperazine Edisylate 10 mg 04/13/25 03:13 04/13/25 05:53 Prochlorperazine Edisylate 10 Mg/2 Ml Vial IV PUSH 10 mg Q6H PRN Administration Nausea And Vomiting Rivaroxaban 20 mg 04/13/25 17:00 Rivaroxaban 20 Mg Tablet PO DAILY ALETHA Radiology Results: ITS Impressions Abdomen/Pelvis CT 04/12/25 17:58 IMPRESSION: 1. Minimal acute pancreatitis. 2. Stigmata of chronic pancreatitis, including chronic splenic vein thrombosis. Labs Labs: Laboratory Results - last 24 hr 04/12/25 04/12/25 04/12/25 16:37 16:41 16:43 WBC 11.7 H RBC 4.19 L Hgb 12.4 Hct 37.4 MCV 89.3 MCH 29.6 MCHC 33.2 RDW 14.8 H Plt Count 344 MPV 9.5 Immature Gran % (Auto) 0.3 Neut % (Auto) 79.8 H Lymph % (Auto) 12.8 L [place] % (Auto) 6.6 Eos % (Auto) 0.3 Baso % (Auto) 0.2 Lymph # (Auto) 1.50 [place] # (Auto) 0.8 H Eos # (Auto) 0.0 Baso # (Auto) 0.0 Abs Immat Gran (auto) 0.03 Absolute Neuts (auto) 9.4 H Absolute Nucleated RBC 0.000 Nucleated RBC % 0.0 Sodium 132 L Potassium 4.0 Chloride 99 Carbon Dioxide 23 Anion Gap 10 BUN 16 Creatinine 0.65 L Estim Creat Clear Calc 82 Estimated GFR > 60 Glucose 132 H Calcium 9.7 Total Bilirubin 0.9 AST 34 ALT 26 Alkaline Phosphatase 60 Total Protein 8.8 H Albumin 5.0 Triglycerides Cholesterol LDL Cholesterol Direct HDL Direct Lipase 785 H Urine Color Dark yellow Urine Appearance Cloudy H Urine pH 5.0 Ur Specific [place] 1.022 Urine Protein Trace Urine Glucose (UA) Negative Urine Ketones Trace H Ur Blood (Man) Trace Urine Nitrate Negative Urine Bilirubin 1+ H Urine Urobilinogen 1.0 Add Ur Microanalysis Reviewed Leukocyte Esterase Rfl 1+ H Urine RBC 0-2 Urine WBC 6-10 H Ur Squamous Epith Cells Occasional Urine Bacteria None seen Urine Casts >20 Hyaline Casts Present Urine Mucus Present POC Urine HCG, Qual Negative 04/13/25 05:15 WBC 10.6 H RBC 4.26 Hgb 12.5 Hct 39.0 MCV 91.5 MCH 29.3 MCHC 32.1 RDW 15.0 H Plt Count 277 MPV 9.9 Immature Gran % (Auto) 0.6 H Neut % (Auto) 84.1 H Lymph % (Auto) 8.7 L [place] % (Auto) 6.3 Eos % (Auto) 0.1 Baso % (Auto) 0.2 Lymph # (Auto) 0.92 [place] # (Auto) 0.7 H Eos # (Auto) 0.0 Baso # (Auto) 0.0 Abs Immat Gran (auto) 0.06 H Absolute Neuts (auto) 8.9 H Absolute Nucleated RBC 0.000 Nucleated RBC % 0.0 Sodium 139 Potassium 3.6 Chloride 102 Carbon Dioxide 28 Anion Gap 9 BUN 8 D Creatinine 0.62 L Estim Creat Clear Calc 84 Estimated GFR > 60 Glucose 128 H Calcium 9.4 Total Bilirubin 0.8 AST 33 ALT 21 Alkaline Phosphatase 59 Total Protein 8.4 H Albumin 4.8 Triglycerides 72 Cholesterol 214 H LDL Cholesterol Direct 85 HDL Direct 108 Lipase 401 H Urine Color Urine Appearance Urine pH Ur Specific [place] Urine Protein Urine Glucose (UA) Urine Ketones Ur Blood (Man) Urine Nitrate Urine Bilirubin Urine Urobilinogen Add Ur Microanalysis Leukocyte Esterase Rfl Urine RBC Urine WBC Ur Squamous Epith Cells Urine Bacteria Urine Casts Hyaline Casts Urine Mucus POC Urine HCG, Qual
[2025-04-13 13:52] VITALS: BP 178/88; PULSE 83; RESP 16; TEMP 36.5; O2SAT 100
[2025-04-13] MEDS: RIVAROXABAN 20 MG TABLET PO (17:08)
[2025-04-13] MEDS: SENNA/DOCUSATE SODIUM TABLET 1 TAB PO (17:08)
[2025-04-13 20:00] VITALS: PULSE 83; RESP 16; O2SAT 100
[2025-04-13] MEDS: buPROPion HCL SR (12 HR) 150 MG TAB PO (20:20)
[2025-04-13 21:23] VITALS: BP 162/89; PULSE 68; RESP 19; TEMP 36.4; O2SAT 100
[2025-04-14] MEDS: MORPHINE SULFATE (*CRX) 4 MG/ML INJ IV PUSH ×5 (04:21→19:45)
[2025-04-14] MEDS: LACTATED RINGERS 1,000 ML 125 ML IV CONT ×3 (04:21→20:01)
[2025-04-14 05:27] VITALS: BP 119/73; PULSE 73; RESP 17; TEMP 36.3; O2SAT 100
[2025-04-14 07:25] LABS: Anion Gap 11 mmol/L (4-12); Blood Urea Nitrogen 5 mg/dL (7-17); Calcium 9.5 mg/dL (8.4-10.2); Carbon Dioxide 27 mmol/L (22-30); Chloride 100 mmol/L (98-107); Estimated CRCL calculation 89 ml/min; Estimated Glomerular Filt Rate > 60; Glucose 119 mg/dL (65-110); Lipase 196 U/L (23-300); Potassium 3.4 mmol/L (3.4-5.0); Sodium 138 mmol/L (137-145)
[2025-04-14] MEDS: SENNA/DOCUSATE SODIUM TABLET 1 TAB PO ×2 (08:40→17:40)
[2025-04-14] MEDS: buPROPion HCL SR (12 HR) 150 MG TAB PO ×2 (08:40→20:00)
--- NOTE | 2025-04-14 11:13 | P.PNIM_ITS ---
Progress Note: A&P Assessment and Plan (1) Hypertension: Code(s): I10 - Essential (primary) hypertension Status: Acute (2) Hyperlipidemia: Code(s): E78.5 - Hyperlipidemia, unspecified Status: Acute (3) DVT (deep venous thrombosis): Code(s): I82.409 - Acute embolism and thrombosis of unspecified deep veins of unspecified lower extremity Status: Acute (4) Acute on chronic pancreatitis: Code(s): K85.90 - Acute pancreatitis without necrosis or infection, unspecified; K86.1 - Other chronic pancreatitis Status: Acute (5) Constipation: Code(s): K59.00 - Constipation, unspecified Status: Acute Plan 44-year-old female patient with past medical history of chronic pancreatitis presented with abdominal pain. Abdominal CT was done which showed Minimal acute pancreatitis,Stigmata of chronic pancreatitis, including chronic splenic vein thrombosis. 1. Acute on chronic pancreatitis: Improving lipase levels Patient did not tolerate clear liquid diet this morning, started having abdominal pain along with nausea Will continue with ice chips and water as tolerated for lunch Pain control IV fluids Antiemetics p.r.n. for nausea/vomiting ? Might benefit from pancreatic enzyme supplementation, will start on Creon 2. History of splenic vein thrombosis: Continue with Xarelto 3. History of hypertension: Continue with nifedipine Continue with p.r.n. IV hydralazine 4. History of posttraumatic stress disorder: Continue with home dose Wellbutrin 5.? Possible UTI: Will add ceftriaxone Await urine culture Monitor leukocytosis 6. Code status: Full 7. DVT prophylaxis: On Xarelto 8. Disposition: Pending improvement in abdominal pain Time Spent With Patient Time: 39 mins Subjective Date/time seen: 04/14/25 11:13 Interval history: Patient did not tolerate clear liquid diet with breakfast this morning, started having pain, nausea Review of Systems Review of Systems: All systems reviewed & are unremarkable except as noted in HPI and below Exam Narrative: Gen -no acute distress Chest - CTA bilaterally, nml RR CV - RRR S1/S2 Abd - Soft, epigastric tenderness present +BS Back - No CVA tenderness Ext - No pedal edema Psych - Nml mood and affect Skin - Warm and dry Objective Data Vital Signs Vital Signs: Vital Signs - 24 hr 04/13/25 13:52 04/13/25 20:00 04/13/25 21:23 Temperature 97.7 F 97.5 F L Pulse Rate 83 83 68 Respiratory Rate 16 16 19 Blood Pressure 178/88 H 162/89 H Pulse Oximetry 100 100 100 Oxygen Delivery Room Air 04/14/25 05:27 Temperature 97.3 F L Pulse Rate 73 Respiratory Rate 17 Blood Pressure 119/73 Pulse Oximetry 100 Oxygen Delivery Intake/Output Intake/Output: Intake & Output 04/11/25 04/12/25 04/13/25 04/14/25 23:59 23:59 23:59 23:59 Intake Total 1000 3100 1240 Balance 1000 3100 1240 Meds/Results Medications: Active Medications Generic Name Dose Route Start Last Admin Trade Name Freq PRN Reason Stop Dose Admin Albuterol 2 puff 04/13/25 00:04 Albuterol Sulfate (*Sp) Aerosol 1 Puff INHALATION Q6H PRN Shortness Of Breath Or Wheezing Lipase/Protease/Amylase 1 cap 04/14/25 12:00 Lipase/Amylase/Protease 12,000 Units Cap PO TIDWM ALETHA Bupropion HCl 150 mg 04/13/25 21:00 04/14/25 08:40 Bupropion Hcl Sr (12 Hr) 150 Mg Tab PO 150 mg Q12HR ALETHA Administration Diphenhydramine HCl 25 mg 04/12/25 20:28 Diphenhydramine Hcl Inj 50 Mg/Ml Vial IV PUSH Q4H PRN Itching Hydralazine HCl 10 mg 04/13/25 00:05 Hydralazine Hcl 20 Mg/Ml Vial IV PUSH Q8H PRN Blood Pressure - High Hydroxyzine HCl 25 mg 04/12/25 20:27 04/14/25 08:42 Hydroxyzine Hcl 50 Mg/Ml Vial IM 25 mg Q4H PRN Administration Itching Lactated Ringer's 1,000 mls @ 125 mls/hr 04/12/25 18:25 04/14/25 04:21 Lr - Lactated Ringers Iv IV CONT 125 mls/hr .Q8H ALETHA Administration Morphine Sulfate 4 mg 04/12/25 18:24 04/14/25 08:52 Morphine Sulfate (*Crx) 4 Mg/Ml Inj IV PUSH 4 mg Q2H PRN Administration Pain Rated 7-10 Nifedipine 30 mg 04/13/25 16:55 04/14/25 08:40 Nifedipine 30 Mg Tab.Er.24 PO 30 mg QAM ALETHA Administration Prochlorperazine Edisylate 10 mg 04/13/25 03:13 04/13/25 05:53 Prochlorperazine Edisylate 10 Mg/2 Ml Vial IV PUSH 10 mg Q6H PRN Administration Nausea And Vomiting Rivaroxaban 20 mg 04/14/25 17:00 Rivaroxaban 20 Mg Tablet PO DAILY@1700 [facility] Senna/Docusate Sodium 1 tab 04/13/25 17:00 04/14/25 08:40 Senna/Docusate Sodium Tablet PO 1 tab BID ALETHA Administration Radiology Results: ITS Impressions Abdomen/Pelvis CT 04/12/25 17:58 IMPRESSION: 1. Minimal acute pancreatitis. 2. Stigmata of chronic pancreatitis, including chronic splenic vein thrombosis. Labs Labs: Laboratory Results - last 24 hr 04/14/25 05:36 Sodium 138 Potassium 3.4 Chloride 100 Carbon Dioxide 27 Anion Gap 11 BUN 5 L Creatinine 0.58 L Estim Creat Clear Calc 89 Estimated GFR > 60 Glucose 119 H Calcium 9.5 Lipase 196 Quality VTE Prophylaxis VTE prophylaxis: pharmacologic ordered
[2025-04-14] MEDS: LIPASE/AMYLASE/PROTEASE 12,000 UNITS CAP 1 CAP PO ×2 (11:58→17:40)
[2025-04-14] MEDS: cefTRIAXone 1 GM in SODIUM CHLORIDE 0.9% IV 50 ML 100 ML IVPB (11:58)
[2025-04-14] MEDS: PROCHLORPERAZINE EDISYLATE 10 MG/2 ML VIAL IV PUSH (12:03)
[2025-04-14 14:00] VITALS: BP 124/77; PULSE 93; RESP 18; TEMP 36.5; O2SAT 100
[2025-04-14] MEDS: RIVAROXABAN 20 MG TABLET PO (17:40)
[2025-04-14 21:49] VITALS: BP 135/92; PULSE 78; RESP 16; TEMP 36.5; O2SAT 98
[2025-04-15] MEDS: MORPHINE SULFATE (*CRX) 4 MG/ML INJ IV PUSH ×3 (01:57→08:39)
[2025-04-15] MEDS: LACTATED RINGERS 1,000 ML 125 ML IV CONT (04:52)
[2025-04-15 05:58] LABS: Hematocrit 33.9 % (37.0-47.0); Hemoglobin 10.6 g/dL (12.0-15.0); Immature Granulocyte Percent A 0.4 % (0-0.5); Lymphocytes Absolute Auto 1.86 K/mm3 (0.9-3.2); Mean Corpuscular HGB Conc 31.3 g/dl (32-36); Mean Corpuscular Hemoglobin 29.5 pg (26-34); Mean Corpuscular Volume 94.4 fl (80-100); Nucleated Red Blood Cells Absolute Auto 0.000 K/mm3 (0.0-0.012); Nucleated Red Blood Cells Perc 0.0 % (0.0-0.2); Platelet Count Result 219 k/mm3 (150-375); Red Blood Count 3.59 M/mm3 (4.2-5.4); White Blood Count 5.5 K/mm3 (4.5-10.0)
[2025-04-15 06:00] VITALS: BP 105/69; PULSE 75; RESP 14; TEMP 36.5; O2SAT 98
[2025-04-15 06:25] LABS: Alanine Aminotransferase 22 U/L (6-35); Albumin Level 4.3 g/dL (3.5-5.1); Alkaline Phosphatase 47 U/L (38-126); Anion Gap 8 mmol/L (4-12); Aspartate Amino Transferase 38 U/L (14-36); Bilirubin,Total 0.5 mg/dL (0.2-1.3); Blood Urea Nitrogen 5 mg/dL (7-17); Calcium 9.3 mg/dL (8.4-10.2); Carbon Dioxide 29 mmol/L (22-30); Chloride 102 mmol/L (98-107); Estimated CRCL calculation 93 ml/min; Estimated Glomerular Filt Rate > 60; Glucose 94 mg/dL (65-110); Magnesium 1.9 mg/dL (1.6-2.3); Potassium 3.2 mmol/L (3.4-5.0); Sodium 139 mmol/L (137-145); Total Protein 7.5 g/dL (6.3-8.2)
[2025-04-15] MEDS: SENNA/DOCUSATE SODIUM TABLET 1 TAB PO ×2 (08:38→16:51)
[2025-04-15] MEDS: LIPASE/AMYLASE/PROTEASE 12,000 UNITS CAP 1 CAP PO ×3 (08:38→16:51)
[2025-04-15] MEDS: buPROPion HCL SR (12 HR) 150 MG TAB PO ×2 (08:38→20:31)
[2025-04-15] MEDS: POTASSIUM CHLORIDE 20 MEQ PACKET (FOR LIQUID) 40 MEQ PO (08:49)
[2025-04-15] MEDS: cefTRIAXone 1 GM in SODIUM CHLORIDE 0.9% IV 50 ML 100 ML IVPB (11:16)
[2025-04-15] MEDS: LACTATED RINGERS 1,000 ML 75 ML IV CONT (12:45)
--- NOTE | 2025-04-15 12:54 | P.PNIM_ITS ---
Progress Note: A&P Assessment and Plan (1) Hypertension: Code(s): I10 - Essential (primary) hypertension Status: Acute (2) Hyperlipidemia: Code(s): E78.5 - Hyperlipidemia, unspecified Status: Acute (3) DVT (deep venous thrombosis): Code(s): I82.409 - Acute embolism and thrombosis of unspecified deep veins of unspecified lower extremity Status: Acute (4) Acute on chronic pancreatitis: Code(s): K85.90 - Acute pancreatitis without necrosis or infection, unspecified; K86.1 - Other chronic pancreatitis Status: Acute (5) Constipation: Code(s): K59.00 - Constipation, unspecified Status: Acute Plan 44-year-old female patient with past medical history of chronic pancreatitis presented with abdominal pain. Abdominal CT was done which showed Minimal acute pancreatitis,Stigmata of chronic pancreatitis, including chronic splenic vein thrombosis. 1. Acute on chronic pancreatitis: Improving symptoms Advanced to full liquid diet Pain medication switch to oral IV fluids Antiemetics p.r.n. for nausea/vomiting Continue with pancreatic enzyme supplementation Supplement potassium 2. History of splenic vein thrombosis: Continue with Xarelto 3. History of hypertension: Continue with nifedipine Continue with p.r.n. IV hydralazine 4. History of posttraumatic stress disorder: Continue with home dose Wellbutrin 5. UTI ruled out Will stop ceftriaxone Leukocytosis has resolved 6. Code status: Full 7. DVT prophylaxis: On Xarelto 8. Disposition: Anticipate discharge within next 24 hours Time Spent With Patient Time: 39 mins Subjective Date/time seen: 04/15/25 12:54 Interval history: Feeling better today Review of Systems Review of Systems: All systems reviewed & are unremarkable except as noted in HPI and below Exam Narrative: Gen -no acute distress Chest - CTA bilaterally, nml RR CV - RRR S1/S2 Abd - Soft, very mild epigastric tenderness present +BS Back - No CVA tenderness Ext - No pedal edema Psych - Nml mood and affect Skin - Warm and dry Objective Data Vital Signs Vital Signs: Vital Signs - 24 hr 04/14/25 14:00 04/14/25 19:45 04/14/25 21:49 Temperature 97.7 F 97.7 F Pulse Rate 93 78 Respiratory Rate 18 16 Blood Pressure 124/77 135/92 H Pulse Oximetry 100 98 Oxygen Delivery Room Air 04/15/25 06:00 Temperature 97.7 F Pulse Rate 75 Respiratory Rate 14 Blood Pressure 105/69 Pulse Oximetry 98 Oxygen Delivery Intake/Output Intake/Output: Intake & Output 04/12/25 04/13/25 04/14/25 04/15/25 23:59 23:59 23:59 23:59 Intake Total 1000 3100 3663.8 3025.4 Balance 1000 3100 3663.8 3025.4 Meds/Results Medications: Active Medications Generic Name Dose Route Start Last Admin Trade Name Freq PRN Reason Stop Dose Admin Hydrocodone Bitart/Acetaminophen 1 tab 04/15/25 12:53 Hydrocodone/Acetaminophen (*Crx) 5-325 Mg Tablet PO Q4H PRN Pain Rated 4-6 Albuterol 2 puff 04/13/25 00:04 Albuterol Sulfate (*Sp) Aerosol 1 Puff INHALATION Q6H PRN Shortness Of Breath Or Wheezing Lipase/Protease/Amylase 1 cap 04/14/25 12:00 04/15/25 11:16 Lipase/Amylase/Protease 12,000 Units Cap PO 1 cap TIDWM ALETHA Administration Bupropion HCl 150 mg 04/13/25 21:00 04/15/25 08:38 Bupropion Hcl Sr (12 Hr) 150 Mg Tab PO 150 mg Q12HR ALETHA Administration Diphenhydramine HCl 25 mg 04/12/25 20:28 Diphenhydramine Hcl Inj 50 Mg/Ml Vial IV PUSH Q4H PRN Itching Hydralazine HCl 10 mg 04/13/25 00:05 Hydralazine Hcl 20 Mg/Ml Vial IV PUSH Q8H PRN Blood Pressure - High Hydroxyzine HCl 25 mg 04/12/25 20:27 04/14/25 08:42 Hydroxyzine Hcl 50 Mg/Ml Vial IM 25 mg Q4H PRN Administration Itching Lactated Ringer's 1,000 mls @ 125 mls/hr 04/12/25 18:25 04/15/25 12:45 Lr - Lactated Ringers Iv IV CONT 125 mls/hr .Q8H ALETHA Administration Ceftriaxone Sodium 1 gm/ 50 mls @ 100 mls/hr 04/14/25 12:00 04/15/25 11:16 Sodium Chloride IVPB 100 mls/hr Q24H ALETHA Administration Nifedipine 30 mg 04/13/25 16:55 04/15/25 08:38 Nifedipine 30 Mg Tab.Er.24 PO 30 mg QAM ALETHA Administration Prochlorperazine Edisylate 10 mg 04/13/25 03:13 04/14/25 12:03 Prochlorperazine Edisylate 10 Mg/2 Ml Vial IV PUSH 10 mg Q6H PRN Administration Nausea And Vomiting Rivaroxaban 20 mg 04/14/25 17:00 04/14/25 17:40 Rivaroxaban 20 Mg Tablet PO 20 mg DAILY@1700 ALETHA Administration Senna/Docusate Sodium 1 tab 04/13/25 17:00 04/15/25 08:38 Senna/Docusate Sodium Tablet PO 1 tab BID ALETHA Administration Radiology Results: ITS Impressions Abdomen/Pelvis CT 04/12/25 17:58 IMPRESSION: 1. Minimal acute pancreatitis. 2. Stigmata of chronic pancreatitis, including chronic splenic vein thrombosis. Labs Labs: Laboratory Results - last 24 hr 04/15/25 05:32 WBC 5.5 RBC 3.59 L Hgb 10.6 L Hct 33.9 L MCV 94.4 MCH 29.5 MCHC 31.3 L RDW 14.6 H Plt Count 219 MPV 10.3 Immature Gran % (Auto) 0.4 Neut % (Auto) 50.8 Lymph % (Auto) 33.9 [place] % (Auto) 11.8 H Eos % (Auto) 2.2 Baso % (Auto) 0.9 Lymph # (Auto) 1.86 [place] # (Auto) 0.7 H Eos # (Auto) 0.1 Baso # (Auto) 0.1 Abs Immat Gran (auto) 0.02 Absolute Neuts (auto) 2.8 Absolute Nucleated RBC 0.000 Nucleated RBC % 0.0 Sodium 139 Potassium 3.2 L Chloride 102 Carbon Dioxide 29 Anion Gap 8 BUN 5 L Creatinine 0.55 L Estim Creat Clear Calc 93 Estimated GFR > 60 Glucose 94 Calcium 9.3 Magnesium 1.9 Total Bilirubin 0.5 AST 38 H ALT 22 Alkaline Phosphatase 47 Total Protein 7.5 Albumin 4.3
[2025-04-15] MEDS: HYDROcodone/acetaminophen (*CRX) 5-325 MG TABLET 1 TAB PO ×3 (13:08→21:46)
[2025-04-15 14:00] VITALS: BP 105/65; PULSE 83; RESP 18; TEMP 36.5; O2SAT 99
[2025-04-15] MEDS: RIVAROXABAN 20 MG TABLET PO (16:51)
[2025-04-15 22:00] VITALS: BP 121/82; PULSE 78; RESP 18; TEMP 36.4; O2SAT 100
[2025-04-16] MEDS: HYDROcodone/acetaminophen (*CRX) 5-325 MG TABLET 1 TAB PO ×3 (02:00→15:05)
[2025-04-16] MEDS: LACTATED RINGERS 1,000 ML 75 ML IV CONT (02:02)
[2025-04-16 06:00] VITALS: BP 106/71; PULSE 69; RESP 18; TEMP 36.1; O2SAT 100
[2025-04-16 06:06] LABS: Hematocrit 33.2 % (37.0-47.0); Hemoglobin 10.4 g/dL (12.0-15.0); Immature Granulocyte Percent A 0.2 % (0-0.5); Lymphocytes Absolute Auto 1.92 K/mm3 (0.9-3.2); Mean Corpuscular HGB Conc 31.3 g/dl (32-36); Mean Corpuscular Hemoglobin 29.7 pg (26-34); Mean Corpuscular Volume 94.9 fl (80-100); Nucleated Red Blood Cells Absolute Auto 0.000 K/mm3 (0.0-0.012); Nucleated Red Blood Cells Perc 0.0 % (0.0-0.2); Platelet Count Result 226 k/mm3 (150-375); Red Blood Count 3.50 M/mm3 (4.2-5.4); White Blood Count 4.8 K/mm3 (4.5-10.0)
[2025-04-16 07:35] LABS: Alanine Aminotransferase 54 U/L (6-35); Albumin Level 4.1 g/dL (3.5-5.1); Alkaline Phosphatase 65 U/L (38-126); Anion Gap 11 mmol/L (4-12); Aspartate Amino Transferase 104 U/L (14-36); Bilirubin,Total 0.3 mg/dL (0.2-1.3); Blood Urea Nitrogen 7 mg/dL (7-17); Calcium 9.3 mg/dL (8.4-10.2); Carbon Dioxide 25 mmol/L (22-30); Chloride 105 mmol/L (98-107); Estimated CRCL calculation 90 ml/min; Estimated Glomerular Filt Rate > 60; Glucose 139 mg/dL (65-110); Potassium 3.1 mmol/L (3.4-5.0); Sodium 141 mmol/L (137-145); Total Protein 7.4 g/dL (6.3-8.2)
[2025-04-16] MEDS: PROCHLORPERAZINE EDISYLATE 10 MG/2 ML VIAL IV PUSH (09:00)
--- NOTE | 2025-04-16 09:15 | PM.IMPN ---
Progress Note: A&P Assessment and Plan (1) Hypertension: Code(s): I10 - Essential (primary) hypertension Status: Acute (2) Hyperlipidemia: Code(s): E78.5 - Hyperlipidemia, unspecified Status: Acute (3) DVT (deep venous thrombosis): Code(s): I82.409 - Acute embolism and thrombosis of unspecified deep veins of unspecified lower extremity Status: Acute (4) Acute on chronic pancreatitis: Code(s): K85.90 - Acute pancreatitis without necrosis or infection, unspecified; K86.1 - Other chronic pancreatitis Status: Acute (5) Constipation: Code(s): K59.00 - Constipation, unspecified Status: Acute Plan 44-year-old female patient with past medical history of chronic pancreatitis presented with abdominal pain. Abdominal CT was done which showed Minimal acute pancreatitis,Stigmata of chronic pancreatitis, including chronic splenic vein thrombosis. 1. Acute on chronic pancreatitis: Improving symptoms Advanced to full liquid diet Pain medication switch to oral IV fluids Antiemetics p.r.n. for nausea/vomiting Continue with pancreatic enzyme supplementation Supplement potassium 2. History of splenic vein thrombosis: Continue with Xarelto 3. History of hypertension: Continue with nifedipine Continue with p.r.n. IV hydralazine 4. History of posttraumatic stress disorder: Continue with home dose Wellbutrin 5. UTI ruled out Will stop ceftriaxone Leukocytosis has resolved 6. Code status: Full 7. DVT prophylaxis: On Xarelto 8. Disposition: Await improvement Subjective Date/time seen: 04/16/25 09:15 Interval history: Pain was better advance diet earlier today. Started having nausea and increased pain this a.m. no Fever chills. Labs reviewed. Later this afternoon she felt better pain is resolved. Going to try low-fat diet. Review of Systems Review of Systems: All systems reviewed & are unremarkable except as noted in HPI and below Exam Narrative: Gen -no acute distress Chest - CTA bilaterally, nml RR CV - RRR S1/S2 Abd - Soft, very mild epigastric tenderness present +BS Back - No CVA tenderness Ext - No pedal edema Psych - Nml mood and affect Skin - Warm and dry Objective Data Vital Signs Vital Signs: Vital Signs - 24 hr 04/15/25 14:00 04/15/25 20:31 04/15/25 22:00 Temperature 97.7 F 97.5 F L Pulse Rate 83 78 Respiratory Rate 18 18 Blood Pressure 105/65 121/82 Pulse Oximetry 99 100 Oxygen Delivery Room Air 04/16/25 06:00 Temperature 97.0 F L Pulse Rate 69 Respiratory Rate 18 Blood Pressure 106/71 Pulse Oximetry 100 Oxygen Delivery Intake/Output Intake/Output: Intake & Output 04/13/25 04/14/25 04/15/25 04/16/25 23:59 23:59 23:59 23:59 Intake Total 3100 3663.8 3465.4 996.2 Balance 3100 3663.8 3465.4 996.2 Meds/Results Medications: Active Medications Generic Name Dose Route Start Last Admin Trade Name Freq PRN Reason Stop Dose Admin Hydrocodone Bitart/Acetaminophen 1 tab 04/15/25 12:53 04/16/25 02:00 Hydrocodone/Acetaminophen (*Crx) 5-325 Mg Tablet PO 1 tab Q4H PRN Administration Pain Rated 4-6 Albuterol 2 puff 04/13/25 00:04 Albuterol Sulfate (*Sp) Aerosol 1 Puff INHALATION Q6H PRN Shortness Of Breath Or Wheezing Lipase/Protease/Amylase 1 cap 04/14/25 12:00 04/15/25 16:51 Lipase/Amylase/Protease 12,000 Units Cap PO 1 cap TIDWM ALETHA Administration Bupropion HCl 150 mg 04/13/25 21:00 04/15/25 20:31 Bupropion Hcl Sr (12 Hr) 150 Mg Tab PO 150 mg Q12HR ALETHA Administration Diphenhydramine HCl 25 mg 04/12/25 20:28 Diphenhydramine Hcl Inj 50 Mg/Ml Vial IV PUSH Q4H PRN Itching Hydralazine HCl 10 mg 04/13/25 00:05 Hydralazine Hcl 20 Mg/Ml Vial IV PUSH Q8H PRN Blood Pressure - High Hydroxyzine HCl 25 mg 04/12/25 20:27 04/14/25 08:42 Hydroxyzine Hcl 50 Mg/Ml Vial IM 25 mg Q4H PRN Administration Itching Lactated Ringer's 1,000 mls @ 75 mls/hr 04/12/25 18:25 04/16/25 02:02 Lr - Lactated Ringers Iv IV CONT 75 mls/hr .[id number] ALETHA Administration Ibuprofen 400 mg/ Sodium 104 mls @ 208 mls/hr 04/16/25 09:14 Chloride IVPB 04/16/25 09:43 ONCE ONE Nifedipine 30 mg 04/13/25 16:55 04/15/25 08:38 Nifedipine 30 Mg Tab.Er.24 PO 30 mg QAM ALETHA Administration Prochlorperazine Edisylate 10 mg 04/13/25 03:13 04/16/25 09:00 Prochlorperazine Edisylate 10 Mg/2 Ml Vial IV PUSH 10 mg Q6H PRN Administration Nausea And Vomiting Rivaroxaban 20 mg 04/14/25 17:00 04/15/25 16:51 Rivaroxaban 20 Mg Tablet PO 20 mg DAILY@1700 ALETHA Administration Senna/Docusate Sodium 1 tab 04/13/25 17:00 04/15/25 16:51 Senna/Docusate Sodium Tablet PO 1 tab BID ALETHA Administration Radiology Results: ITS Impressions Abdomen/Pelvis CT 04/12/25 17:58 IMPRESSION: 1. Minimal acute pancreatitis. 2. Stigmata of chronic pancreatitis, including chronic splenic vein thrombosis. Labs Labs: Laboratory Results - last 24 hr 04/16/25 05:25 WBC 4.8 RBC 3.50 L Hgb 10.4 L Hct 33.2 L MCV 94.9 MCH 29.7 MCHC 31.3 L RDW 14.5 Plt Count 226 MPV 10.5 H Immature Gran % (Auto) 0.2 Neut % (Auto) 45.6 Lymph % (Auto) 39.9 [place] % (Auto) 10.6 H Eos % (Auto) 2.9 Baso % (Auto) 0.8 Lymph # (Auto) 1.92 [place] # (Auto) 0.5 Eos # (Auto) 0.1 Baso # (Auto) 0.0 Abs Immat Gran (auto) 0.01 Absolute Neuts (auto) 2.2 Absolute Nucleated RBC 0.000 Nucleated RBC % 0.0 Sodium 141 Potassium 3.1 L Chloride 105 Carbon Dioxide 25 Anion Gap 11 BUN 7 Creatinine 0.57 L Estim Creat Clear Calc 90 Estimated GFR > 60 Glucose 139 H Calcium 9.3 Total Bilirubin 0.3 AST 104 H ALT 54 H Alkaline Phosphatase 65 Total Protein 7.4 Albumin 4.1
[2025-04-16] MEDS: IBUPROFEN IV 400 MG in SODIUM CHLORIDE 0.9% IV 100 ML 208 MG IVPB (09:35)
[2025-04-16] MEDS: buPROPion HCL SR (12 HR) 150 MG TAB PO (09:40)
[2025-04-16 09:43] LABS: Lipase 73 U/L (23-300); Magnesium 2.0 mg/dL (1.6-2.3)
[2025-04-16] MEDS: POTASSIUM CHLORIDE INJ 40 MEQ in SODIUM CHLORIDE 0.9% IV 500 ML 130 MEQ IVPB (10:30)
[2025-04-16 14:00] VITALS: BP 123/83; PULSE 72; RESP 18; TEMP 36.3; O2SAT 100
--- NOTE | 2025-04-16 17:22 | P.DS_ITS ---
DS: Admitting Diagnosis Discharge Date 04/16/2025 Admitting Diagnosis Abdominal pain DS: Discharge Diagnosis Discharge Diagnosis (1) Hypertension: Code(s): I10 - Essential (primary) hypertension Status: Acute (2) Hyperlipidemia: Code(s): E78.5 - Hyperlipidemia, unspecified Status: Acute (3) DVT (deep venous thrombosis): Code(s): I82.409 - Acute embolism and thrombosis of unspecified deep veins of unspecified lower extremity Status: Acute (4) Acute on chronic pancreatitis: Code(s): K85.90 - Acute pancreatitis without necrosis or infection, unspecified; K86.1 - Other chronic pancreatitis Status: Acute (5) Constipation: Code(s): K59.00 - Constipation, unspecified Status: Acute DS: Summary Hospital Course Hospital Course: 44-year-old female patient with past medical history of chronic pancreatitis presented with abdominal pain. Abdominal CT was done which showed Minimal acute pancreatitis,Stigmata of chronic pancreatitis, including chronic splenic vein thrombosis. 1. Acute on chronic pancreatitis: Improving symptoms Advanced to full liquid diet Pain medication switch to oral IV fluids Antiemetics p.r.n. for nausea/vomiting Continue with pancreatic enzyme supplementation Supplement potassium Improved clinically. 2. History of splenic vein thrombosis: Continue with Xarelto 3. History of hypertension: Continue with nifedipine Continue with p.r.n. IV hydralazine 4. History of posttraumatic stress disorder: Continue with home dose Wellbutrin 5. UTI ruled out Will stop ceftriaxone Leukocytosis has resolved 6. Code status: Full 7. DVT prophylaxis: On Xarelto 8. Disposition: Tolerating diet. DC home Time Spent with Patient Time attestation: Total time spent providing and/or coordinating discharge services: 35 minutes Exam Narrative: Gen -no acute distress Chest - CTA bilaterally, nml RR CV - RRR S1/S2 Abd - Soft, very mild epigastric tenderness present +BS Back - No CVA tenderness Ext - No pedal edema Psych - Nml mood and affect Skin - Warm and dry DS: Data Data Completed and Pending Labs on day of discharge: Labs from last 24 hours 04/16/25 05:25 WBC 4.8 RBC 3.50 L Hgb 10.4 L Hct 33.2 L MCV 94.9 MCH 29.7 MCHC 31.3 L RDW 14.5 Plt Count 226 MPV 10.5 H Immature Gran % (Auto) 0.2 Neut % (Auto) 45.6 Lymph % (Auto) 39.9 Blount % (Auto) 10.6 H Eos % (Auto) 2.9 Baso % (Auto) 0.8 Lymph # (Auto) 1.92 Blount # (Auto) 0.5 Eos # (Auto) 0.1 Baso # (Auto) 0.0 Abs Immat Gran (auto) 0.01 Absolute Neuts (auto) 2.2 Absolute Nucleated RBC 0.000 Nucleated RBC % 0.0 Sodium 141 Potassium 3.1 L Chloride 105 Carbon Dioxide 25 Anion Gap 11 BUN 7 Creatinine 0.57 L Estim Creat Clear Calc 90 Estimated GFR > 60 Glucose 139 H Calcium 9.3 Magnesium 2.0 Total Bilirubin 0.3 AST 104 H ALT 54 H Alkaline Phosphatase 65 Total Protein 7.4 Albumin 4.1 Lipase 73 Imaging Radiologist's impression: ITS Impressions Abdomen/Pelvis CT 04/12/25 17:58 IMPRESSION: 1. Minimal acute pancreatitis. 2. Stigmata of chronic pancreatitis, including chronic splenic vein thrombosis. Discharge Plan Discharge Attending physician on discharge: Michael Elizabeth Consulting providers: Darian Han Discharging Clinician: Michael Elizabeth Anticipated Discharge Date/Time: 04/16/25 17:24 Patient Disposition: Home Activity: as tolerated Diet: low fat Patient Instructions: Antibiotic Form, Apixaban (By mouth) Patient Language: Belgian Stand Alone Forms: General Discharge Information Follow-up/Referrals: PHYSICIAN,NEUROLOGY HOSPITALIST [Primary Care Provider, Internal Medicine] - 1 Week Discharge Medications: New hydrocodone-acetaminophen 5-325 mg Tablet 1 tablet PO Q4H PRN (Reason: Pain Rated 4-6) Qty: 10 0RF Creon 12,000-38,000 -60,000 unit Capsule,Delayed Release(Dr/Ec) 1 cap PO TIDWM Qty: 90 0RF Continued bupropion HCl [Wellbutrin XL] 150 mg Tablet Extended Release 24 Hr 150 mg PO BID fenofibrate 160 mg Tablet 160 mg PO DAILY Xarelto 20 mg tablet 20 mg PO DAILY hydroxyzine HCl 50 mg tablet 50 mg PO Q8H PRN (Reason: anxiety) ergocalciferol (vitamin D2) 1,250 mcg (50,000 unit) capsule 50,000 unit PO WEEKLY Patient Comments: Take every Saturday albuterol sulfate 90 mcg/actuation HFA aerosol inhaler 2 puff INHALATION Q6H PRN (Reason: shortness of breath or wheezing) sennosides-docusate sodium [Senokot-S] 8.6-50 mg Tablet 1 tab PO BID Qty: 60 0RF nifedipine [Procardia XL] 30 mg Tablet Extended Release 24hr 30 mg PO QAM Qty: 30 0RF ondansetron 4 mg tablet,disintegrating 4 mg PO Q8H PRN (Reason: nausea) Date of admission: 04/13/25 09:15 Primary Care Provider: PHYSICIAN,NEUROLOGY HOSPITALIST Admitting Provider: Lela Geronimo Attending physician on admission: Lela Geronimo Condition: Stable
[2025-04-16] MEDS: LIPASE/AMYLASE/PROTEASE 12,000 UNITS CAP 1 CAP PO (17:43)
[2025-04-16] MEDS: SENNA/DOCUSATE SODIUM TABLET 1 TAB PO (17:43)
[2025-04-16] MEDS: RIVAROXABAN 20 MG TABLET PO (17:43)
== END 2025-04-16 18:30 | disposition home or self-care (01) | DRG 282 ==
LOC: ANHED 18:32 → ANH3MEDSUR 19:30
PROVIDERS: Emergency Medicine; Internal Medicine; Admitting Provider Internal Medicine; Emergency Provider General Practice; Visit Provider Internal Medicine
DX: K85.90 Acute pancreatitis without necrosis or infection, unspecified (principal); K86.1 Other chronic pancreatitis; E86.0 Dehydration; F43.10 Post-traumatic stress disorder, unspecified; I10 Essential (primary) hypertension; E78.5 Hyperlipidemia, unspecified; Z86.718 Personal history of other venous thrombosis and embolism; Z87.820 Personal history of traumatic brain injury; Z90.710 Acquired absence of both cervix and uterus; Z87.891 Personal history of nicotine dependence; Z79.01 Long term (current) use of anticoagulants
CPT/HCPCS: 36415; 74177; 80048; 80053; 80061; 81001; 81025; 83690; 83735; 85025; 87086; 96361; 96372; 96374; 96375; 96376; 99285; A9270; G0378; G0379; J0696; J0780; J1741; J2270; J2550; J2765; J3410; J3480; J7040; J7120; Q9967